=== PATIENT | male | born 1945 | race Caucasian/White ===

== ENCOUNTER → 2025-06-13 14:30 | Outpatient (RCR) | payer MEDICARE, SELFPAY ==
--- NOTE | 2025-05-23 15:55 | HP.PTEVAL ---
Patient's Visit Information Visit Information Visit Information: TANA NICOLE is a 79 year old M referred to Physical Therapy by Dr. Owen Hernandez MD with a diagnosis of Ataxia. Date of Evaluation: 05/23/25 Physical Therapist: MARCELLE Ash Visit Plan Frequency: 1-2x /Week Duration: 6 Weeks Plan: 1-2X/ week for 6 weeks for balance on and off compliant surfaces, gait and balance with head turns, functional ability to step over and order picker/assembler things from the floor with HEP HEP: standing in corner with feet together and EC with and without head turns Subjective Subjective: Pt reports that his legs do not work any more and having weakness and trouble keeping his balance. This has been coming on gradually for at least a year but more severe in the last 2 months. His legs are not giving out on him. He has back pain and has it but not that often. He has some back pain now because he was lifting boxes. He reports that everything is difficult for him like stairs and needs the railing. He has not had any testing. He is not working right now. He is on Social Security. Pain back pain: Pain Intensity (Out of 10): 3 Objective Objective: Gait: walks slowly with decrease stride length LE MMT: R hip flex 11.2 and L 11.5 R knee ext 13.4 and L 17.6 R knee flex 9 and L 10.3 CATSIB 62/120 FGA: 15 Sit to stand X 5 in a row without UE support Balance/Special Test Scores Functional Gait Assessment Score: 15 % Disability: 50.0000 CATSIB Score (Max score 120 seconds): 62 Lower Extremity Functional Score: 14 Goals Goal 1:: I HEP Goal Time Frame: 6-8 Weeks Goal 2:: Feel more secure stepping up on a 3 step ladder with confidence Goal Time Frame: 6-8 Weeks Goal 3:: Increase balance (FGA score was 15 on eval) Goal Time Frame: 6-8 Weeks Goal 4:: Increase CATSIB score (score was 62 on eval) Goal Time Frame: 6-8 Weeks Goal 5:: Feel 50% more confidence with balance Goal Time Frame: 6-8 Weeks Rehabilitation Potential Rehabilitation Potential: Good Anticipated Interventions Patient/Client Instruction: Educate patient on: Condition and Plan of Care For the Purpose of:: To decrease pain, To decrease swelling/inflammation, To increase ROM, To improve nutrient delivery to tissue, To improve muscle performance and motor function, To improve ability to perform ADL's, To increase tolerance to activity/condition/position, To improve performance and independence with ADL's, To decrease level of supervision to perform tasks, To improve ability of physical actions for home/community/work/leisure, To improve gait and locomotor functions, To improve health of tissue and To improve safety with gait Therapeutic Exercise to Include: Strength training, Balance training and Gait and locomotor training For the Purpose of:: To improve gait and locomotor functions, To improve balance and To improve safety with gait Functional Training to Include: Gait training For the Purpose of:: To improve gait and locomotor functions and To improve safety with gait Text: Thank you for the opportunity to evaluate your patient. For Medicare and Medicare HMO plans, please review the plan of care and approve it. It will need to be FAXED BACK to us at [phone] for Medicare purposes. For Medicare only, by signing this I certify the plan of care. Please let me know if there are questions or concerns regarding this plan of care. Physician Signature: Date:
== END ==
LOC: PT 05-23 12:52
PROVIDERS: PCP Family Medicine; Referring Provider Family Medicine; Visit Provider Family Medicine
DX: R27.0 Ataxia, unspecified (principal)
CPT/HCPCS: 97110; 97161

== ENCOUNTER 2025-06-15 12:44 | Inpatient (IN) | payer MEDICARE, SELFPAY ==
[2025-06-15] VITALS (11 sets, daily range): BP systolic 108–167; BP diastolic 58–100; PULSE 89–97; RESP 16–25; TEMP 37.1; O2SAT 91–98; BMI 28.9
--- NOTE | 2025-06-15 13:26 | EKG12_ITS ---
Test Reason : Blood Pressure : */* mmHG Vent. Rate : 93 BPM Atrial Rate : 93 BPM P-R Int : 154 ms QRS Dur : 74 ms QT Int : 356 ms P-R-T Axes : 32 -50 -6 degrees QTcB Int : 442 ms Normal sinus rhythm Left axis deviation Inferior infarct , age undetermined Anterolateral infarct , age undetermined Abnormal ECG Confirmed by SHEILA BOLTON, MURTAZA ([id number]), non linear editor RICHARD KAPADIA ([id number]) on 06/20/2025 6:21:17 AM Referred By: Confirmed By: MURTAZA SOSA MD
--- NOTE | 2025-06-15 13:26 | CT_ITS ---
PROCEDURE: STROKE BRAIN/HEAD WITHOUT CONT 06/15/2025 REASON FOR EXAM: NEURO DEFICIT, ACUTE, STROKE SUSPECTED TECHNIQUE: Procedure Code: CTBR.ST Modality: CT Procedure: STROKE BRAIN/HEAD WITHOUT CONT Coronal and Sagittal reconstruction series were provided. One or more dose reduction techniques were used (e.g., Automated exposure control, adjustment of the mA and/or kV according to patient size, use of iterative reconstruction technique. RADIATION DOSE SUMMARY: CTDlvol: 146 mGy DLP: 3503 mGycm COMPARISON: None FINDINGS: Brain: There is no evidence of hemorrhage or acute ischemia. However, there is vasogenic edema in the left occipital lobe effacing the atrium of the lateral ventricle and also in the precuneus of the parietal lobe secondary to an enhancing mass measuring 2.1 x 1.4 cm that is seen on the CT angiogram that was done at the same time. The mass appears to be associated with the splenium of the corpus callosum, and the adjacent occipital lobe. A 2nd lesion is seen in the temporal lobe abutting the temporal foreign measuring 1.4 x 1.4 cm. The largest lesion is partially necrotic centrally measuring 3.2 x 2.0 cm located in the left superior cerebellar hemisphere. Vasogenic edema is associated with this lesion as well. This creates mass effect effacing the ambient cisterns, [id number]. Partially effacing the prepontine cistern, and there is some mass effect on the 4th ventricle. CSF Spaces: [id number] volume loss is present. There is some mild dilation of the temporal horns in this patient with mass effect on the 4th ventricle. Obstructive CSF physiology versus age-related volume loss. Sinuses/Mastoids: Small mucous retention cyst or polyp right maxillary sinus. Otherwise clear. Bones: No fracture CT angiogram: The aortic branching pattern is conventional. Minimal atherosclerotic plaque of the aortic arch. No stenosis. The common carotid vessels are widely patent bilaterally. Internal carotid arteries and carotid bulbs shows some minimal atherosclerotic plaque at the margins that is less than 15% narrowing bilaterally. The internal carotid arteries: Otherwise patent. Mild atherosclerotic plaque at the cavernous and supraclinoid portions. Anterior cerebral arteries are patent. Middle cerebral arteries are patent. No evidence of large vessel occlusion. Posterior cerebral arteries are patent. Superior cerebellar arteries are patent. Basilar artery is patent. Left vertebral artery is dominant. Both are patent. Venous structures are patent. There is preferred drainage to the right. Emphysema is seen at the lung apices. CT/STROKE Brain/Head without Cont IMPRESSION: 1. No evidence of acute ischemia or hemorrhage. 2. Multiple enhancing masses are shown worrisome for metastatic disease. One in the left posterior corpus callosum at the splenium, another at the right temporal horn, and a third in the left central c erebellum. Associated vasogenic edema is present primarily from the lesion in the cerebellum with effacement of the ambient cist erns, and prepontine cistern. Mass effect on the 4th ventricle. Mild obstructive CSF physiology versus volume loss related to a ge. 3. No large vessel occlusion. Despite very mild, partial effacement of the pr epontine cistern, the basilar artery is widely patent. Stroke Alert: As above The critical findings in the findings and impression above were relayed directl y by me by telephone to [facility] on 06/15/2025 at 3:02 pm EST with readback verification. Reading Location: [id number]
--- NOTE | 2025-06-15 13:27 | CT_ITS ---
PROCEDURE: STROKE CTA HEAD AND NECK W/CON 06/15/2025 REASON FOR EXAM: NEURO DEFICIT, ACUTE, STROKE SUSPECTED Falls. Unsteady gait. Left leg weakness. TECHNIQUE: Procedure Code: CTCTA.ST.HN Modality: CT Procedure: STROKE CTA HEAD AND NECK W/CON Multiplanar Sagittal and Coronal images were obtained. 3D post processing was performed CONTRAST: Isovue 370 VOLUME: 100 mL One or more dose reduction techniques were used (e.g., Automated exposure control, adjustment of the mA and/or kV according to patient size, use of iterative reconstruction technique). RADIATION DOSE SUMMARY: CTDlvol: 25.5 mGy DLP: 887.61 mGycm COMPARISON: None FINDINGS: Enhancing nodular masses are seen in the left cerebellar hemisphere with surrounding edema. Enhancing mass is also seen in the medial aspect of the right temporal lobe as well as in the medial aspect of the left occipital lobe with surrounding edema and mass effect. Findings are in keeping with a metastatic disease. Small enhancing nodule in the right thalamus. Aortic Arch: Normal size and branching pattern. Mild atherosclerotic plaque. Brachiocephalic and Subclavians: Unremarkable RIGHT Carotid: Right CCA: Unremarkable. Right ICA: Mild calcified and soft plaque. Maximum stenosis (NASCET): <50 % Right ECA: Unremarkable. LEFT Carotid: Left CCA: Unremarkable. Left ICA: Mild calcified and soft plaque. Maximum stenosis (NASCET): <50 % Left ECA: Unremarkable. Vertebrals: Codominant. Arise from the subclavians. Both vertebrals form the basilar. RIGHT Vertebral: Unremarkable. LEFT Vertebral: Unremarkable. Anatomy: [place] anatomy is normal. Aneurysm or avm: No intracranial aneurysms or large vascular malformations are identified. Anterior cerebral arteries: Unremarkable: Middle cerebral arteries: Unremarkable. Basilar artery: Unremarkable. Posterior cerebral arteries: Unremarkable. Other major branches of the posterior circulation: Unremarkable. Major venous structures: Unremarkable. CT/STROKE CTA Head AND Neck W/Con IMPRESSION: No significant vascular abnormality is seen. 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 Red Alert: Brain mets The critical findings in the findings and impression above were relayed directl y by me by telephone to Mario Musa on 06/15/2025 at 2:54 pm with readback verification. Reading Location: [facility]
--- NOTE | 2025-06-15 13:30 | EDS_ITS ---
HPI History of Present Illness Chief Complaint: Weakness Detail of Chief Complaint: Weakness and ataxia since March. Gradual onset. Informant: patient Onset/Context/Timing Onset: Month(s) Context: Gradual Onset Timing: Continuous Current Severity: Mild Maximum Severity: Mild Narrative Narrative: 79-year-old male history of prior double bypass. States for the last several months in March he has had generalized weakness and at times will get off balance and has trouble walking. Denies any fall or head injury. No headaches. No history of stroke or mini stroke. He lives alone. States he also has had diarrhea last 2 weeks. Denies any recent antibiotics. Denies any recent hos pitalization or travel. Prior similar symptoms: Yes Recent Illness/Hospitalization: No PFSH PFSH Medical History Cellulitis of left lower leg Home Medications ?Medication ?Instructions ?Recorded ?Last Taken ?Type rosuvastatin 40 mg tablet 40 mg PO QDAY 04/05/25 Unkno wn History Allergy/AdvReac Type Severity Reaction Status Date / Time No Known Allergies Allergy Verified 06/15/25 12:45 Surgical History Hx of CABG Social History Smoking Status: Current every day smoker tobacco type: cigarettes alcohol intake: never ROS ROS ED ROS Narrative Generalized weakness. Ataxia. Diarrhea. Constitutional Constitutional ED: Denies chills or fever(s) Eyes Eyes: Denies blurry vision ENT ENT ED: Denies ear pain Cardiovascular Cardiovascular: Denies chest pain Respiratory/Chest Respiratory/Chest: Denies cough or dyspnea Gastrointestinal Gastrointestinal: Reports diarrhea; Denies abdominal pain, melena, nausea or vomiting Genitourinary Genitourinary ED: Denies dysuria or hematuria Musculoskeletal Musculoskeletal: Denies arthralgias Integumentary Denies abscess Neurologic Neurologic: Reports weakness; Denies headache(s) Psychiatric Psychiatric: Denies anxiety or depression Endocrine Endocrinology: Denies cold intolerance Hematologic/Lymphatic Hematologic/Lymphatic: Reports none Allergic/Immunologic Allergic/Immunologic ED: Denies mouth swelling, tongue swelling or urticaria EXAM Physical Exam Narrative Exam Narrative: 79-year-old male sitting upright in bed. Vital signs are stable afebrile. No acute distress. H EENT exam pupils round react light. Moist mucous membranes. No facial droop. Normal speech. No signs of head trauma or tenderness. Neck nontender. Back nontender. Lungs clear to auscultation bilaterally. Heart regular rhythm no murmur. Chest wall ribs nontender. Abdomen soft, nontender, nondistended normal bowel sounds without peritoneal signs. Moving all 4 extremities. 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 Normal dorsi plantarflexion. No drift. Dqzawr-zy-fmdb within normal limits. Neurologically is awake alert. Answering questions following commands. He knows the month, year and president and states. No focal motor deficits. Const Vital Signs: 06/15/25 12:45 06/15/25 13:30 06/15/25 13:45 Temperature 98.7 F Temperature Source Oral Pulse Rate 96 97 94 Respiratory Rate 20 H 25 H 21 H Blood Pressure 163/94 H 145/94 H 141/92 H Blood Pressure Mean 117 107 107 Pulse Ox 96 95 95 06/15/25 14:00 06/15/25 15:00 Temperature Temperature Source Pulse Rate 89 94 Respiratory Rate 16 25 H Blood Pressure 153/97 H 146/80 H Blood Pressure Mean 115 102 Pulse Ox 97 91 MDM MDM MDM Narrative Medical decision making narrative: 79-year-old male with generalized weakness with ataxia over the last several months has been development. CAT scan of his head and head and neck will be obtained with contrast. Screening labs. This could be recent stroke versus generalized weakness versus electrolyte abnormality due to his diarrhea. Repeat exam 3:40 PM unchanged patient resting in bed nurses were able to get up and ambulate him he is a little off balance. But he could walk. Went over his test results my concern for a lung cancer metastasis to his brain. I have already spoken to [facility]. There is seen if they have a bed for him and transfer. Patient is comfortable with the plan. He does not want to be discharged home if he cannot be transferred to I stated prefer to be admitted due to his fear of falling. Patient also be given IV Solu-Medrol. History & Record Review Discussion w/independent historian: Patient Additional record(s) reviewed:: No prior records Lab Data Attestation: I reviewed the patient's lab results. Lab results narrative: CBC shows a white count Arik 0.9. H&H 13.6 and 41. Platelets 355. PT/INR of 12.9 and 1. PTT 27 Electrolytes show a gap of 11. Normal BUN of 16 creatinine 0.9. Glucose of 100. CAT scan of the chest shows a right lung mass concern for lung cancer. CAT scan of the brain shows multiple masses in his brain 1 appears to be occluding the fourth ventricle. There is also mass effect. Labs: Laboratory Results - last 24 hr 06/15/25 12:55 WBC 11.9 H RBC 4.58 L Hgb 13.6 Hct 41.7 MCV 91.0 MCH 29.7 MCHC 32.6 RDW Std Deviation 45.2 H RDW Coeff of [place] 13.4 Plt Count 355 MPV 8.9 Immature Gran % (Auto) 0.500 Neut % (Auto) 71.0 H Lymph % (Auto) 12.2 L [place] % (Auto) 15.2 H Eos % (Auto) 0.8 Baso % (Auto) 0.3 Absolute Neuts (auto) 8.4 H Absolute Lymphs (auto) 1.45 Nucleated RBC % 0 Differential Comment SCANNED Platelet Estimate ADEQUATE PT 12.9 INR 1.0 APTT 27.8 Sodium 137 Potassium 4.7 Chloride 101 Carbon Dioxide 24.5 Anion Gap 11 BUN 16 Creatinine 0.95 Estim Creat Clear Calc 57.78 Est GFR (MDRD) Non-Af 82 BUN/Creatinine Ratio 16.9 Glucose 100 H Calcium 9.5 Radiography Diagnostic Testing: Clinical Impression(s) from Imaging Studies Brain CT 06/15/25 13:26 IMPRESSION: 1. No evidence of acute ischemia or hemorrhage. 2. Multiple enhancing masses are shown worrisome for metastatic disease. One in the left posterior corpus callosum at the splenium, another at the right temporal horn, and a third in the left central cerebellum. Associated vasogenic edema is present primarily from the lesion in the cerebellum with effacement of the ambient cisterns, and prepontine cistern. Mass effect on the 4th ventricle. Mild obstructive CSF physiology versus volume loss related to age. 3. No large vessel occlusion. Despite very mild, partial effacement of the prepontine cistern, the basilar artery is widely patent. Stroke Alert: As above The critical findings in the findings and impression above were relayed directly by me by telephone to [facility] on 06/15/2025 at 3:02 pm EST with readback verification. Reading Location: [id number] Head/Neck CTA 06/15/25 13:27 IMPRESSION: No significant vascular abnormality is seen. 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 Red Alert: Brain mets The critical findings in the findings and impression above were relayed directly by me by telephone to Mario Musa on 06/15/2025 at 2:54 pm with readback verification. Reading Location: [facility] 06/15/25 13:53 IMPRESSION: Coronary artery calcification (CAC) is is present 3.4 cm 2.7 cm irregular lobulated mass in the posterior aspect of the right upper lobe abutting the right minor fissure. A neoplastic process should be ruled out. Increased markings at the lung bases suggestive of either linear atelectasis and/or scarring. Reading Location: [facility] Discharge Plan Triage Chief Complaint: Weakness ED Provider: Mario Musa Dx/Rx/DC Orders Clinical Impression: Ataxia, Lung cancer metastatic to brain Prescriptions: No Action rosuvastatin 40 mg tablet 40 mg PO QDAY Primary Care Provider: Owen Hernandez Referrals: Owen Hernandez MD [Primary Care Provider, Family Practice] Print Language: Lithuanian Disposition Disposition: Acute Care Hospital
[2025-06-15 13:41] LABS: Hematocrit 41.7 % (40-54); Hemoglobin 13.6 g/dL (13.0-16.5); Immature Granulocytes Count 0.060 X10^3/uL (0.0-0.0); Mean Corp Hgb Conc 32.6 g/dL (32-36); Mean Corpuscular Volume 91.0 fL (80-94); Mean Platelet Vol. 8.9 fl (6.2-12.0); NRBC Flagged by Analyzer 0 % (0-5); POSITIVE DIFFERENTIAL YES; Platelet Count 355 K/mm3 (150-450); RBC Distribution Width CV 13.4 % (11.6-14.6); RBC Distribution Width SD 45.2 fl (35.1-43.9); Red Blood Count 4.58 M/mm3 (4.6-6.2); White Blood Count 11.9 K/mm3 (4.4-11.0)
[2025-06-15 13:44] LABS: Differential Indicated SCAN CRITERIA MET
--- NOTE | 2025-06-15 13:53 | CT_ITS ---
PROCEDURE: CHEST WITH CONTRAST 06/15/2025 REASON FOR EXAM: POSSIBLE LUNG CA TECHNIQUE: Procedure Code: CTCHW Modality: CT Procedure: CHEST WITH CONTRAST Coronal and Sagittal reconstruction series were provided. CONTRAST: Isovue 370 VOLUME: 100 mL One or more dose reduction techniques were used (e.g., Automated exposure control, adjustment of the mA and/or kV according to patient size, use of iterative reconstruction technique). RADIATION DOSE SUMMARY: CTDlvol: 26.62 mGy DLP: 967.44 mGycm COMPARISON: None FINDINGS: Hardware: EKG electrodes are seen. Lymph nodes: No suspicious lymph nodes are seen. Heart and Vasculature: Prior CABG. Atherosclerotic calcifications of the thoracic aorta. Pulmonary arteries are unremarkable. Coronary artery calcification. Lungs and Airways: There is a 3.4 cm x 2.7 cm irregular lobulated mass in the posterior aspect of the right upper lobe abutting the right minor fissure. A neoplastic process should be ruled out. Increased markings at the lung bases suggestive of either atelectasis and/or scarring. Pleura: No pleural effusion. Upper Abdomen: Sludge or small gallstones within the dependent portion of the gallbladder lumen. Bones: Degenerative changes of the thoracic spine. Increased kyphosis. CT/Chest WITH Contrast IMPRESSION: Coronary artery calcification (CAC) is is present 3.4 cm 2.7 cm irregular lobulated mass in the posterior aspect of the right upp er lobe abutting the right minor fissure. A neoplastic process should be ruled out. Increased markings at the lung bases suggestive of either linear atelectasis an d/or scarring. Reading Location: [place] [id number]
[2025-06-15 13:57] LABS: Prothrombin Time (Protime)PT. 12.9 SECONDS (11.7-14.9)
[2025-06-15 13:58] LABS: Partial Thromboplast Time 27.8 Seconds (24.1-36.2)
[2025-06-15 14:28] LABS: Anion Gap 11 (5-15); BUN 16 mg/dL (4-19); BUN/Creat Ratio 16.9 RATIO (10-20); Calcium,Total 9.5 mg/dL (7.6-11.0); Carbon Dioxide 24.5 mmol/L (21.0-32.0); Chloride 101 mmol/L (98-108); Estimated Creatinine Clearance 57.78 ml/min (50-250); Glucose 100 mg/dL (70-99); Potassium 4.7 mmol/L (3.3-5.1)
[2025-06-15 14:46] LABS: Differential Comment SCANNED
--- NOTE | 2025-06-15 23:06 | PCA ---
CALLED [facility] AND ASKED ABOUT BED STATUS. RN STATED MOST LIKELY / MORNING.
--- NOTE | 2025-06-15 23:51 | HP.PCM.HOS_ITS ---
HPI - General General Date of Admission: 06/15/25 Date of Service: 06/15/25 Chief Complaint: Weakness, debility, off balance, weight loss. HPI Narrative The patient is a 79 y/o M w/ PMHx: HTN, HLD, CAD s/p CABG x 2, Tobacco use who presents to the [facility] ED on 06/15/2025 with history of persistent history of the last several months in March worsening generalized weakness, possibly weight loss although uncertain per patient report but potentially decreased appetite with sensation of being off balance and difficulty walking in addition to recent history of intermittent loose stools prompting patient to present for evaluation. He denies any night sweats or fevers or any marked productive cough. He again reports potentially weight loss but he is uncertain. He does note generalized fatigue and declining status over the last several months. Workup in the ED included T98.7, heart rate 98, BP 163/94, respiratory rate 20, 96% on room air with most recent repeat vitals heart rate 91, BP 108/58, respiratory rate 24, 98% on room air, CBC with WC 11.9, hemoglobin 13.6, platelet 355 with left shift, unremarkable coags, BMP with BUN/creatinine 16/0.95, GFR 82, glucose 100, magnesium 2.3, Phos 2.8, CT brain/CTA head and neck with no acute ischemia or hemorrhage however multiple enhancing masses concerning for metastatic disease, noted 1 in the left posterior corpus callosum at the splenium, another at the right temporal horn, third at the left central cerebellum with associated vasogenic edema primarily from the lesion in the cerebellum with effacement of the ambient cisterns and prepontine cistern, mass effect on the fourth ventricle with mild obstructive CFS physiology versus volume loss related to age, no evidence of any large vessel occlusion, CT chest with contrast with 3.4 cm x 2.7 cm irregular lobulated mass in the posterior aspect of the right upper lobe abutting the right minor fissure with increased markings at the lung bases suggestive of atelectasis and/or scarring. ED physician discussed case at length with [facility] and patient was accepted by Dr. Blanton as a level 1 with plan for transition once became available however unfortunately there was a several hour delay prompting discussion of case with hospitalist service and given rediscussion with [facility] noted likely bed not available until later in the day 06/16/2025 requested that ED physician administer Decadron dose as well as loaded with Keppra. Patient was evaluated in the Emergency Department at [facility] on 06/15/2025 as noted and at the time of evaluation, transfer to a tertiary hospital was felt to be in the patient's best interest due to significant metastatic disease with metastatic disease to the brain including cerebellum/multiple areas with vasogenic edema and mass effect on the fourth ventricle with attempts were made by the Emergency Department and/or the Hospitalist team to get patient to the appropriate level of care and although the patient has been accepted for transfer to [facility], there are no staffed beds currently available. Given the need for ongoing medical care, in the interim in the best interest of the patient, will proceed with admission to [facility] and care will be provided here until [facility] has an available staffed bed. Pt and/or family are aware of the transfer, the reasoning behind the need for transfer, and that until a staffed bed becomes available, we will provide evidence-based care to the best of our abilities, with the limitations of care here being fully addressed. [facility] [place] [place] Medical History CKD (chronic kidney disease), stage II Tobacco use HLD (hyperlipidemia) HTN (hypertension) CAD (coronary artery disease) Home Medications ?Medication ?Instructions ?Recorded ?Last Taken ?Type rosuvastatin 40 mg tablet 40 mg PO QDAY 04/05/25 Unkno wn History Allergy/AdvReac Type Severity Reaction Status Date / Time No Known Allergies Allergy Verified 06/15/25 12:45 Family History Mother Alzheimer's disease Father Kidney disease Surgical History Hx of CABG Social History household members: none Smoking Status: Current every day smoker tobacco type: cigarettes Smoking packs per day: 0.75 Smoking cigarettes per day: 15.0 alcohol intake: never substance use type: does not use ROS ROS Narrative Admission Review of Systems: CONSTITUTIONAL: No weight loss, fever, chills, + weakness or fatigue. HEENT: Eyes: No visual loss, blurred vision, double vision or yellow sclerae. Ears, Nose, Throat: No hearing loss, sneezing, congestion, runny nose or sore throat. SKIN: No rash or itching, lesions, wounds. CARDIOVASCULAR: No chest pain, chest pressure or chest discomfort, palpitations, edema, orthopnea, syncopal events. RESPIRATORY: No shortness of breath, cough or sputum, wheezing, hemoptysis. GASTROINTESTINAL: + Potential weight loss, decreased appetite, recent occasional loose stool. No nausea, vomiting, abdominal pain, melena, BRBPR. GENITOURINARY: No dysuria, frequency, urgency or retention. NEUROLOGICAL: + Sensation of being off balance, general debility. No headache, dizziness, syncope, paralysis, numbness or tingling in the extremities, focal weakness, change in bowel or bladder control, seizure. MUSCULOSKELETAL: + muscle, back pain, joint pain or stiffness. HEMATOLOGIC: No anemia. + Easy bleeding/bruising. LYMPHATICS: No enlarged nodes. No history of splenectomy. PSYCHIATRIC: No history of depression or anxiety. ENDOCRINOLOGIC: No reports of sweating, cold or heat intolerance. No polyuria or polydipsia. ALLERGIES: No history of asthma, hives, eczema or rhinitis. Vital Signs Vital Signs Vital Signs: 06/15/25 12:45 06/15/25 13:30 06/15/25 13:45 Temperature 98.7 F Temperature Source Oral Pulse Rate 96 97 94 Respiratory Rate 20 H 25 H 21 H Blood Pressure 163/94 H 145/94 H 141/92 H Blood Pressure Mean 117 107 107 Pulse Ox 96 95 95 06/15/25 14:00 06/15/25 15:00 06/15/25 16:11 Temperature Temperature Source Pulse Rate 89 94 95 Respiratory Rate 16 25 H 25 H Blood Pressure 153/97 H 146/80 H 167/99 H Blood Pressure Mean 115 102 121 Pulse Ox 97 91 95 06/15/25 17:25 06/15/25 18:15 06/15/25 19:28 Temperature Temperature Source Pulse Rate 94 92 Respiratory Rate 23 H 18 Blood Pressure 151/100 H 155/84 H 141/76 H Blood Pressure Mean 117 107 97 Pulse Ox 93 94 06/15/25 20:40 06/15/25 22:00 Temperature Temperature Source Pulse Rate 91 Respiratory Rate 24 H Blood Pressure 108/58 L 117/64 Blood Pressure Mean 74 81 Pulse Ox 98 Weight Weight: 163 lb 2.273 oz Body Mass Index (BMI) 28.9 Physical Exam Narrative Physical Examination: General: Awake, alert, oriented to self, place, month, year, recent events, remains ooperative, laying in the ED bed, fatigued, no acute distress. Skin: Normal color, normal turgor, no icterus, no cyanosis except occasional stage ecchymoses, abrasion. HEENT: AT/NC, EOMI, PERRLA, mildly dry MM, no carotid bruits or JVD noted. Lungs: Diminished, greater bases, appropriate effort, no rales, ronchi or wheezing. Heart: Regular rate and rhythm; no gallop, rub audible. Abdomen: Soft, NTTP, ND, mildly hyperactive BS, no appreciated HSM. Extremities: No cyanosis, no clubbing, no significant distal edema noted. Neurological: Patient awake, alert, oriented as noted, cognitive function intact; pupils equally reactive to light and accommodation, cranial nerves grossly normal, moving all 4 extremities, no focal deficits, strength preserved with evaluation while seated/laying however patient reportedly in ED had been ataxic with ambulatory effort, FTN/HTS appropriate although slow. Psychiatric: Affect appears fatigued otherwise appropriate, no acute evidence of depressive or anxiety feelings. Results Lab / Micro Data 06/15/25 12:55 06/15/25 12:55 Labs: Laboratory Results - last 24 hr 06/15/25 12:55: WBC 11.9 H, RBC 4.58 L, Hgb 13.6, Hct 41.7, MCV 91.0, MCH 29.7, MCHC 32.6, RDW Std Deviation 45.2 H, RDW Coeff of Brooklynn 13.4, Plt Count 355, MPV 8.9, Immature Gran % (Auto) 0.500, Neut % (Auto) 71.0 H, Lymph % (Auto) 12.2 L, Hayes % (Auto) 15.2 H, Eos % (Auto) 0.8, Baso % (Auto) 0.3, Absolute Neuts (auto) 8.4 H, Absolute Lymphs (auto) 1.45, Nucleated RBC % 0, Differential Comment SCANNED, Platelet Estimate ADEQUATE, PT 12.9, INR 1.0, APTT 27.8, Sodium 137, Potassium 4.7, Chloride 101, Carbon Dioxide 24.5, Anion Gap 11, BUN 16, Creatinine 0.95, Estim Creat Clear Calc 57.78, Est GFR (MDRD) Non-Af 82, BUN/Creatinine Ratio 16.9, Glucose 100 H, Calcium 9.5 Imaging Radiology Impression Brain CT 06/15/25 13:26 IMPRESSION: 1. No evidence of acute ischemia or hemorrhage. 2. Multiple enhancing masses are shown worrisome for metastatic disease. One in the left posterior corpus callosum at the splenium, another at the right temporal horn, and a third in the left central cerebellum. Associated vasogenic edema is present primarily from the lesion in the cerebellum with effacement of the ambient cisterns, and prepontine cistern. Mass effect on the 4th ventricle. Mild obstructive CSF physiology versus volume loss related to age. 3. No large vessel occlusion. Despite very mild, partial effacement of the prepontine cistern, the basilar artery is widely patent. Stroke Alert: As above The critical findings in the findings and impression above were relayed directly by me by telephone to Elton on 06/15/2025 at 3:02 pm EST with readback verification. Reading Location: [facility] Head/Neck CTA 06/15/25 13:27 IMPRESSION: No significant vascular abnormality is seen. 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 Red Alert: Brain mets The critical findings in the findings and impression above were relayed directly by me by telephone to Mario Musa on 06/15/2025 at 2:54 pm with readback verification. Reading Location: [facility] 06/15/25 13:53 IMPRESSION: Coronary artery calcification (CAC) is is present 3.4 cm 2.7 cm irregular lobulated mass in the posterior aspect of the right upper lobe abutting the right minor fissure. A neoplastic process should be ruled out. Increased markings at the lung bases suggestive of either linear atelectasis and/or scarring. 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 #1. Debility, imbalance secondary to notable lung mass with suspected metastatic disease to the brain including the cerebellum with vasogenic edema and mass effect on the fourth ventricle with potential mild obstructive CFS physiology: Although patient has been accepted as a level 1 to the [facility] unfortunately there is a significant delay therefore we will bring patient into the ICU while awaiting transfer, will maintain on fall precautions, will continue Keppra antiepileptic medication and requested load in the ED, will continue Decadron 4 mg IV every 6 hours, will request neurology evaluation while awaiting transfer, will request MRI of the brain with and without contrast but defer to neurology recommendations, will defer any antiplatelet therapy however the patient has been noncompliant with aspirin therapy already so he has not been taking anything, will monitor blood pressure and add regimen if appropriate, PT/OT/speech consultation requested, will continue neurological assessments every shift, will involve magazine publisher while awaiting for transfer, will defer consideration of biopsy of the lung mass to tertiary facility. #2. Chronic Kidney Disease Stage II per GFR trending but no comparison thus uncertain: Admission BUN/Cr 16/0.95, GFR 82, baseline renal function unknown but suspect likely this is baseline, repeat BMP in AM. #3. CAD: Status post CABG x 2, not taking any any antiplatelet therapy even including aspirin, not on a beta-srikanth NIKOLAS inhibitor/ARB, reportedly taking statin therapy which we continued. Given current presentation will defer aspirin therapy, continue statin, given normalized blood pressure currently will avoid beta-srikanth/NIKOLAS inhibitor however if appropriate will add. #4. Hypertension: Despite history as well as coronary history patient is not on any regimen per current list, from discussion with patient has been lost to follow-up coupled with noncompliance, currently BP upon evaluation normalized thus loath to start something at this time, will have as needed hydralazine however if blood pressure elevates and is appropriate low threshold to initiate beta-srikanth therapy as well as NIKOLAS inhibitor given coronary disease concurrently. #5. Hyperlipidemia: Will continue patient home statin therapy. #6. Tobacco Abuse: Encouraged cessation, inpatient consultation per RT, NR if desired. #7. DVT prophylaxis: SCDs, defer any chemoprophylaxis concept given findings on CT imaging of the brain. #8. CODE status: Patient HCPOA is his brother, from discussion unclear if living will is in place. CODE status at length including difference between FULL code, DNR-CCA and DNR-CC status. Following discussions about the differences in these status, requested DNR-CCA, no intubation examples discussed and patient confirmation of DNR status. Advanced Care Planning Face to Face Time: 16 minutes. Charges/Coding Visit Charges Inpatient E&M: 55606 Init Hosp L3 Procedures Hospitalists Procedures: 54392 Advncd Care Plan 30 Min
[2025-06-16] VITALS (18 sets, daily range): BP systolic 88–136; BP diastolic 61–83; PULSE 71–96; RESP 10–24; TEMP 36.5–37.1; O2SAT 91–97; BMI 25.2
[2025-06-16 00:37] LABS: Magnesium 2.3 mg/dL (1.5-2.2)
[2025-06-16] MEDS: levETIRAcetam IV 1,000 MG/100 ML BAG 400 MG IV (00:42)
--- NOTE | 2025-06-16 00:47 | ED.RN ---
Patient states he will update Fernandez in the morning and does not want RN to update him
--- OUTSIDE RECORDS SUMMARY | 2025-06-16 01:21 | XMS RPT_ITS | CCD ---
Author Organization [facility] Care Team Providers Care 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 Name Role Phone Vanesa Carranza MD Primary Care Provider Tere BOLTON, Dr. Weaver Primary Care Physician Tere BOLTON, Dr. Weaver Referring Provider Moe Simon Attending Physician [phone] Moe Simon Attending Unavailable Vanesa Carranza Referring Unavailable Vanesa Carranza Primary Care Unavailable Vanesa Carranza MD Primary Care Provider VANESA CARRANZA Primary Care Unavailable VANESA CARRANZA Attending Unavailable VANESA CARRANZA Primary Care Unavailable VANESA CARRANZA Primary Care Unavailable VANESA CARRANZA Primary Care Unavailable VANESA CARRANZA Attending Unavailable VANESA CARRANZA Primary Care Unavailable Medications Current Medications Medication Drug Class(es) Dates Sig (Normalized) Sig (Original) cephalexin 500 mg oral capsule (1 source) Cephalosporin Antibacterial Start: 04-05-2025 take 1 capsule by mouth three times daily Cephalexin 500 mg capsule Active 500 mg PO THREE TIMES A DAY 30 0 April 05, 2025 12:00am Complies with drug therapy losartan potassium 50 mg oral tablet (2 sources) Angiotensin 2 Receptor Hector Start: 05-12-2025 take 1 tablet by mouth once daily losartan (Cozaar) 50 MG tablet Take 1 tablet (50 mg) by mouth daily. 30 tablet 05/12/2025 Active [place] 1-Rzp-Kvd-Fish Oil (Fish Oil) 60-90-500 mg capsule (1 source) Start: 04-05-2025 [place] 1-Gnm-Tie-Fish Oil (Fish Oil) 60-90-500 mg capsule Active 1 NMA PO daily April 05, 2025 12:00am Complies with drug therapy [place]-3 Fatty Acids (OMEGA-3 FISH OIL PO) (17 sources) [place]-3 Fatty Acids (OMEGA-3 FISH OIL PO) Take by mouth. Active [place]-3 Fatty Ac ids (OMEGA-3 FISH OIL PO) Take by mouth. 0 Active rosuvastatin calcium 40 mg oral tablet (20 sources) HMG-CoA Reductase Inhibitor Start: 10-31-2024 End: 05-03-2025 take 1 tablet by mouth once daily rosuvastatin (Crestor) 40 MG tablet Take 1 tablet (40 mg) by mouth daily. 90 tablet 1 05/03/2025 Active Start: 09-16-2023 End: 04-19-2024 take 1 tablet by mouth once daily rosuvastatin (Crestor) 40 MG tablet Take 1 tablet by mouth daily. 90 tablet 1 04/19/2024 Active Start: 01-28-2023 take 1 tablet by bria th once daily rosuvastatin (Crestor) 40 MG tablet Take 1 tablet (40 mg) by mouth daily. 30 tablet 0 01/28/2023 Active ubidecarenone 30 mg oral cap gus (18 sources) Start: 04-05-2025 Coenzyme Q10 3 0 mg capsule Active 30 mg PO daily April 05, 2025 12:00am Complies with drug therapy take 1 capsule by mouth once laverne ly coenzyme Q-10 50 MG capsule Take 50 mg by mouth daily. Active Completed/Discontinued Medications Medication Drug Class(es) Dates Sig (Normalized) Sig (Original) bromfenac 0.7 mg/ml ophthalmic solution (2 sources) Nonsteroidal Anti-inflammatory Drug Start: 08-13-2024 End: 10-27-2024 take 1 drop(s) into the eye(s) once daily Bromfenac Sodium 0.07 % solution instill 1 drop into right eye once a day 08/13/2024 10/27/2024 Discontinued (Therapy completed) ofloxacin 3 mg/ml ophthalmic solution (5 sources) Quinolone Antimicrobial Start: 02-11-2024 End: 10-27-2024 take 1 drop(s) into the eye(s) four times daily ofloxacin (Ocuflox) 0.3 % ophthalmic solution Instill 1 drop Right Eye 4 times a day as directed 02/11/2024 10/27/2024 Discontinued (Therapy completed) prednisoLONE acetate 10 mg/ml ophthalmic suspension (5 sources) Corticosteroid Start: 03-28-2024 End: 10-27-2024 take 1 drop(s) into the eye(s) four times daily prednisoLONE acetate (Pred-Forte) 1 % ophthalmic suspension puy 1 drop into left eye 4 times a day as directed 03/28/2024 10/27/2024 Discontinued (Therapy completed) Problems Active Problems Problem Classification Problem Date Documented Da te Episodic/Chronic Coronary atherosclerosis and other heart disease (20 sources) Coronary arteriosclerosis; Translations: [Atherosclerotic heart disease of [place] coronary artery without angina pectoris] Onset: 10-24-2022 Chronic Disorders of lipid metabolism (20 sources) Mixed hyperlipidemia; Translations: [Mixed hyperlipidemia] Onset: 01-28-2023 01-28-2023 Chronic Other and ill-defined heart disease (1 source) Heart disease; Translations: [Heart disease, unspecified] 04-05-2025 Chronic Other circulatory disease (20 sources) Elevated blood-pressure reading without diagnosis of hypertension; Translations: [Elevated blood-pressure reading, without diagnosis of hypertension] Onset: 10-24-2022 Resolved: 10-27-2023 Episodic Other circulatory disease (2 sources) Elevated blood-pressure reading, without diagnosis of hypertension; Translations: [Elevated blood-pressure reading, without diagnosis of hypertension] Onset: 10-27-2024 Episodic Other nervous system disorders (10 sources) Ataxia; Translations: [Ataxia, unspecified] Onset: 05-03-2025 05-03-2025 Episodic Other nervous system disorders (2 sources) Ataxia, unspecified; Translations: [Ataxia, unspecified] Onset: 05-03-2025 Episodic Residual codes; unclassified (2 sources) Influenza vaccination declined; Translations: [Immunization not carried out because of patient refusal] 05-04-2024 Episodic Residual codes; unclassified (2 sources) Immunization not carried out because of patient refusal; Translations: [Immunization not carried out because of patient refusal] Onset: 05-03-2025 Episodic Skin and subcutaneous tissue infections (2 sources) Cellulitis of lower leg; Translations: [Cellulitis of left lower limb] 04-05-2025 Episodic Substance-related disorders (20 sources) Cigarette smoker ; Translations: [Nicotine dependence, cigarettes, uncomplicated] Onset: 05-06-2024 05-06-2024 Chronic Unclassified (2 sources) Blood Pressure Check; Translations: [Blood Pressure Check] Onset: 11-04-2024 Past or Other Problems Problem Classification Problem Date Documented Da te Episodic/Chronic Other screening for suspected conditions (not mental disorders or infectious disease) (6 sources) Patient encounter status; Translations: [Encounter for screening for diabetes mellitus] Onset: 10-27-2024 Episodic Results Test Name Value Interpretation Reference Range Facil ity 29on 05-12-2025 29 Addended by: VANESA CARRANZA on: 05/12/2025 12:19 PM Modules accepted: Orders [facility] 29 Addended by: BERT OVERTON on: 05/12/2025 12:07 PM Modules accepted: Orders [facility] 36on 05-12-2025 36 Rx sent [facility] 36 Called and spoke wit h patient agreeable to start rx. Pended RX. Scheduled in 2 weeks for a bp check. pharmacy verified. [facility] 36on 05-11-2025 36 I am sorry that was supposed to be losartan 50 mg for blood pressure rosuvastatin is for his cholesterol. [facility] 36 Message released to patient as written. Yes Patient's further questions if applicable: no Were all questions from office addressed or relayed to the patient from encounter: No Release regarding BP clinical support Patient stated that he is already on rosuvastatin 40mg for cholesterol. [facility] Progress Noteon 05-10-2025 Progress Note Corrected see TE fro m 05/12/25. [facility] Progress Note The patient, Tana Flores, identity was verified by name and . Supervising provider for clinic visit: Dr. Vanesa Carranza Chief Complaint Patient presents with Blood Pressure Check Reason for visit: Elevated BP Reading at last visit Tana Flores has validated current medications Patient states compliant with medications as written: No BP medication taken prior to this visit? Patient not currently prescribed b/p medication Are you having any symptoms? No Current Blood Pressure:157/82 Current Heart Rate:94 Did Blood Pressure need rechecked: yes Second Blood Pressure Readin/91 Second Heart Rate: 94 Assessment/Plan: There are no diagnoses linked to this encounter. elevated Future Appointments Date Time Provider Department Center 11/04/2025 10:40 AM LEONARD Castillo CNP [facility] 05/05/2026 10:40 AM Brittnee Helm, [employer] - JAIL OFFICER [facility] Cc'd provider blood pressure readings? Yes Normal [facility] Progress Note Called patient and left vm to call our office back regarding b/p check. Normal [facility] Progress Note Blood pressure continues to be elevated would recommend starting rosuvastatin 50 mg daily and recheck in 1 week. Normal [facility] Office Visiton 05-03-2025 Follow-up visit [id number] MarkTana Sandoval 1945 M Date Provider Department Center 05/03/2025 [id number] VANESAMARITZA ENGLANDAgnes [facility] Family History Family Status - Relation Status Age at Mother Father Level of Service:53632 [place] OFFICE/OUTPATIENT ESTABLISHED MOD MDM 30 MIN Reason for Visit and Comments: Coronary Artery Disease [187] Hyperlipidemia [182] Medication Check [[id number]] - 6 month Health Maintenance [872] - Lung cancer screen- refuse Rsv vaccine- not done Flu vaccine- refuse Covid vaccine- not done Tdap vaccine- refuse Pcv 20 vaccine- refuse Normal [facility] Progress Noteon 05-03-2025 Progress Note Blood pressure was initially elevated, recheck it was still up but a little better, follow-up in 1 week for blood pressure check, most likely he is going to need to start some blood pressure medication in the future. Normal [facility] Progress Note Discussed smoking cessation, gives no indication he is ready. Normal [facility] Progress Note Controlled, continue rosuvastatin 40 mg daily Normal [facility] Progress Note We will get him into physical therapy for balance and core strengthening Normal [facility] Progress Note Stable, no recent angina, continue rosuvastatin 40 mg daily and stop smoking. Normal [facility] Progress Note 05/03/2025 Tana Sandoval Flores (: 1945) is a 79 y.o. male , Established patient, here for evaluation of the following chief complaint(s): Coronary Artery Disease, Hyperlipidemia, Medication Check (6 month), and Health Maintenance (Lung cancer screen- refuse/Rsv vaccine- not done/Flu vaccine- refuse/Covid vaccine- not done/Tdap vaccine- refuse/Pcv 20 vaccine- refuse) ASSESSMENT/PLAN: 1. Coronary artery disease involving [place] coronary artery of [place] heart without angina pectoris Assessment & Plan: Stable, no recent angina, continue rosuvastatin 40 mg daily and stop smoking. 2. Elevated BP without diagnosis of hypertension Assessment & Plan: Blood pressure was initially elevated, recheck it was still up but a little better, follow-up in 1 week for blood pressure check, most likely he is going to need to start some blood pressure medication in the future. 3. Mixed hyperlipidemia Assessment & Plan: Controlled, continue rosuvastatin 40 mg daily 4. Ataxia Assessment & Plan: We will get him into physical therapy for balance and core strengthening Orders: - External referral to Physical Therapy 5. Cigarette smoker Assessment & Plan: Discussed smoking cessation, gives no indication he is ready. 6. Refused influenza vaccine Follow up in about 6 months (around 11/01/2025). SUBJECTIVE/OBJECTIVE: ANGI Dumont comes in today for 6-month follow-up on his multiple health issues which includes coronary artery disease which is stable at this time. 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 Blood pressure is again elevated slightly will recheck Prior to discharge. Review of Systems Constitutional: Negative for activity change, appetite change, chills, fever and unexpected weight change. HENT: Negative for ear pain and sore throat. Respiratory: Negative for shortness of breath. Cardiovascular: Negative for chest pain and palpitations. Gastrointestinal: Negative for abdominal pain, blood in stool, constipation and diarrhea. Genitourinary: Negative for dysuria, frequency, genital sores, hematuria and urgency. Musculoskeletal: Negative for arthralgias and back pain. Skin: Negative. Neurological: Negative for weakness and numbness. Psychiatric/Behaviora l: Negative for dysphoric mood. The patient is not nervous/anxious. Vitals: 05/03/25 1059 05/03/25 1130 BP: (!) 161/89 (!) 150/90 Pulse: 85 84 SpO2: 94% Weight: 161 lb 6.4 oz (73.2 kg) Height: 5' 3.25 (1.607 m) Physical Exam Vitals and nursing note reviewed. Constitutional: General: He is not in acute distress. Appearance: Normal appearance. HENT: Right Ear: Tympanic membrane, ear canal and external ear normal. Left Ear: Tympanic membrane, ear canal and external ear normal. Mouth/Throat: Mouth: Mucous membranes are moist. Pharynx: Oropharynx is clear. Eyes: Extraocular Movements: Extraocular movements intact. Conjunctiva/sclera: Conjunctivae normal. Pupils: Pupils are equal, round, and reactive to light. Neck: Thyroid: No thyromegaly. Vascular: No carotid bruit. Cardiovascular: Rate and Rhythm: Normal rate and regular rhythm. Heart sounds: Normal heart sounds. No murmur heard. Pulmonary: Effort: Pulmonary effort is normal. Breath sounds: Normal breath sounds. Abdominal: General: Bowel sounds are normal. Palpations: Abdomen is soft. Tenderness: There is no abdominal tenderness. Musculoskeletal: General: Normal range of motion. Cervical back: Neck supple. Lymphadenopathy: Cervical: No cervical adenopathy. Skin: General: Skin is warm and dry. Neurological: General: No focal deficit present. Mental Status: He is alert and oriented to person, place, and time. Psychiatric: Mood and Affect: Mood normal. An electronic signature was used to authenticate this note. Vanesa Carranza MD 05/03/2025 11:54 AM [facility] Progress Note Patient verified by last name and date of . [facility] Urgent Care Visit Reporton 0 04-05-2025 Urgent Care Visit Report [facility] [address], [address] [place] [address] OFFICE VISIT Date of Service: 04/05/25 MR#: [id number] Acct: [id number] Name: TANA FLORES Rep #: [id number] : 1945 Provider: TANYA Swan Age/Sex: 79/M Location: [facility] [place] Status: Signed Intake Vital Signs 04/05/25 11:41 Height 5 ft 3 in Weight: 163 lb 4 oz BMI 28.9 BP 122/82 H Position Sitting Respiration 20 H Pulse 105 H Temp 98.1 F Temp Source Oral Pulse Oximetry (%) 95 Oxygen Delivery Method room air Intake Visit Reasons: L LEG WOUND Accompanied by: Self Allergies No Known Allergies Allergy (Verified 04/05/25 11:41) Medications ???Medication ???Instructions ???Recorded ???Confirmed ???Type cephalexin 500 mg capsule 500 mg PO TID #30 caps 04/05/25 Rx coenzyme Q10 30 mg capsule 30 mg PO QDAY 04/05/25 04/05/25 Hi story omega 0-whh-rac-fish oil 60 mg-90 1 cap PO QDAY 04/05/25 04/05/25 H istory mg-500 mg capsule (Fish Oil) rosuvastatin 40 mg tablet 40 mg PO QDAY 04/05/25 04/05/25 Hi story Have you fallen in the past year?: No Nurse's Note: Patient here for concerns for a infection in his wound on his left leg. Patient wound happen 3 weeks ago. Patient states he though it was getting better then Friday he started bleeding . Patient state that their is a tightness where the wound is and he has redness hasn't gone away. It looks a little swollen too. Patient states no drainage but did have watery blood. [facility] Medical History (Updated 04/05/25 @ 11:56 by TANYA Rowland) Cellulitis of left lower leg Surgical History (Updated 04/05/25 @ 11:48 by Adrianna Ward MA) Hx of CABG Social History Smoking Status: Current every day smoker tobacco type: cigarettes alcohol intake: never HPI HPI Details: TANA FLORES, is a 79 M who presents to the office today for initial evaluation at the [facility] for approximately 3 weeks history of leg trauma to left anterior lower leg with a metal ladder causing an open wound and has noticed stated progressively worsening erythema, swelling, warmth and serosanguineous discharge from the same. No complaints of fever, chills, sweats, lightheadedness/dizzi ness, nausea/vomiting. No otxk-vqn-xglhrdo oral medications or topical products have been tried to assist though he did recently start covering the open wound with Band- Aids over the last 3 to 4 days. Non-smoker. PMH NC. No other associated symptoms and no other alleviating or aggravating factors. ROS Const Constitutional: No other (As above) Exam Const General: cooperative, healthy appearing and no acute distress Orientation: alert and awake Resp Effort Inspection: normal respiratory effort and able to speak in complete sentences Cardio Rate: regular rate Rhythm: regular rhythm Pulses: radial pulses present Skin General: no rashes or lesions noted Other: Except left anterior lower leg approximately 3 cm open L-shaped laceration with scant serosanguineous discharge and circumferential erythema, swelling, warmth of approximately 15 cm diameter to the same wound. After inspection site was recleansed and dressing applied thereafter which patient tolerated well. Neuro General: patient alert and patient awake Cognition: normal cognition Speech: speech normal Extrem General: normal to inspection Psych Appearance: grossly normal Mental Status: mental status grossly normal Mood: congruent mood Affect: normal affect Speech and Movement: speech and movement normal Attitude: cooperative Coding Level of Care Code Off vis,new,level 3 Diagnoses Cellulitis of left lower leg L03.116 Assessment and Plan Assessment and Plan (1) Cellulitis of left lower leg: Status: Acute Plan: Twice daily wound care with Epsom salt soaks, followed by bacitracin ointment and dressing as instructed today. Cephalexin as prescribed today. Supportive measures including rest, elevate, ibuprofen/acetaminoph en as needed for symptomatic relief. Follow-up with PCP in 3 to 5 days should symptoms not improve, sooner should symptoms only worsen or any other concerns develop. Patient states acknowledging understanding all the above. This note was generated with [employer] dictation software. It may contain incorrect words, spelling, and punctuation that were not noted in checking the note before signing. Medications: New cephalexin 500 mg PO TID 30 caps 0RF Clinical Quality Measures Falls Risk Screening/Assistive Devices Have you fallen in the past year?: No 04/05/25 1157 Date Moe Turcios Signature: Date (if applicable) CC: Normal [facility] 36on 11-04-2024 36 Notified, no further questions. Normal [facility] 36 Blood pressure is excellent, also rosuvastatin was sent in 4 days ago to [facility] 36 Patient also came in today for a blood pressure check and his reading was 118/79 pulse 95. Please advise, thank you! Patient arrived for nurse visit today and was verified by name and . Supervising provider for clinic visit Dr. Carranza is currently not taking any anti- hypertensive medications Shortness of breath no Medication compliance yes B/P Reading taken automatic Home Monitoring no Patient advised if follow up is needed, outreach will occur in 48 hours [facility] 36 Patient needs a refill of Crestor---send to [facility] Progress Noteon 11-04-2024 Progress Note [address] [facility] [id number] Patient arrived for nurse visit today and was verified by name and . Supervising provider for clinic visit Dr. Carranza is currently not taking any anti- hypertensive medications Shortness of breath no Medication compliance yes B/P Reading taken automatic Home Monitoring no Patient advised if follow up is needed, outreach will occur in 48 hours [place] [id number] 10-31-2024 36 Thank you, a gold star is waiting. Rx sent for another 6 months [place] [id number] 36 Message released to patient as written. ----- Message from Vanesa Carranza MD sent at 10/28/2024 5:20 AM EDT ----- Blood sugar and chemistry are normal. Cholesterol is excellent, continue current medications and low-fat low-cholesterol Patient's further questions if applicable: Patient states Dr. Carranza should send him a Gold Star. No follow questions. Thank you. Were all questions from office addressed or relayed to the patient from encounter: Yes [place] [id number] 36 Called patient to release their lab results. No answer, Left voicemail advising patient to return call back to office to obtain results. Please relay results/providers message to patient and ask any follow up questions if needed. [facility] 36 ----- Message from Vanesa Carranza MD sent at 10/28/2024 5:20 AM EDT ----- Blood sugar and chemistry are normal. Cholesterol is excellent, continue current medications and low-fat low-cholesterol diet. Normal [facility] 37on 10-27-2024 37 Personalized Preventative Plan for Tana Flores - 10/27/2024 Medicare offers a range of preventative health benefits. Some of the tests and screenings are paid in full while others may be subject to a deductible, co-insurance, and / or copay. Some of these benefits include a comprehensive review of your medical history including lifestyle, illnesses that may run in your family, and various assessments and screenings as appropriate. After reviewing your medical record and screening and assessments performed today, your provider may have ordered immunizations, labs, imaging, and / or referrals for you. A list of these orders (if applicable) as well as your Preventative Care list are included within your After Visit Summary for your review. Other Preventative Recommendations: A preventive eye exam by an magneto specialist is recommended every 1-2 years to screen for glaucoma, cataracts, macular degeneration, and other eye disorders. A preventive dental visit is recommended every 6 months. Try to get at least 150 minutes of exercise per week or 10,000 steps per day on a pedometer. You need 1200-1500mg of calcium and 3486-5850 international units of vitamin D per day. It is possible to meet your calcium requirement with diet alone, but a vitamin D supplement is usually necessary to meet this goal. When exposed to the sun, use a sunscreen that protects against both UVA and UVB radiation with an SPF of 30 or greater. Reapply every 2-3 hours or after sweating, drying off with a towel, or swimming. Always wear a seat belt when traveling in a car. Always wear a helmet when riding a bicycle or a motorcycle Normal [facility] Office Visiton 10-27-2024 Follow-up visit [id number] FloresTana adams Jaime 1945 M Date Provider Department Center 10/27/2024 [id number] Family History Family Status - Relation Status Age at Mother Father Level of Service:G0439 [place] PPPS, SUBSEQ VISIT Reason for Visit and Comments: Medicare Annual Wellness Visit Subsequent [627] Blood Work [079131] Health Maintenance [872] - Rsv vaccine- not done Lung cancer screening- refuse Normal [facility] Progress Noteon 10-27-2024 Progress Note Blood pressure was again initially elevated, recheck was still high we will have him follow-up in 1 week for blood pressure check. Normal [facility] Progress Note Discussed smoking cessation, he shows some interest in trying to quit so we discussed making it difficult to smoke by putting his cigarettes somewhere where he has to physically go and get each 1 he wants to smoke. Also to do something to help with the hand and mouth part of the addiction. Normal [facility] Progress Note Controlled, continue rosuvastatin 40 mg daily [facility] Progress Note Stable, has had no angina, continue rosuvastatin 40 mg daily [facility] Progress Note [facility] - [address] [address] Dept: [phone] Dept Chief Complaint: Tana Flores is an 79 y.o. male here for an annual wellness visit. Assessment/Plan : Problem List Items Addressed This Visit Cigarette smoker Discussed smoking cessation, he shows some interest in trying to quit so we discussed making it difficult to smoke by putting his cigarettes somewhere where he has to physically go and get each 1 he wants to smoke. Also to do something to help with the hand and mouth part of the addiction. Coronary artery disease involving [place] coronary artery of [place] heart without angina pectoris Stable, has had no angina, continue rosuvastatin 40 mg daily Elevated BP without diagnosis of hypertension Blood pressure was again initially elevated, recheck was still high we will have him follow-up in 1 week for blood pressure check. Mixed hyperlipidemia Controlled, continue rosuvastatin 40 mg daily Relevant Orders Lipid panel Other Visit Diagnoses Routine general medical examination at health care facility - Primary Screening for diabetes mellitus Relevant Orders Comprehensive metabolic panel I have reviewed and reconciled the medication list with the patient today. Current Outpatient Medications Medication Sig Dispense Refill coenzyme Q-10 50 MG capsule Take 50 mg by mouth daily. [place]-3 Fatty Acids (OMEGA-3 FISH OIL PO) Take by mouth. rosuvastatin (Crestor) 40 MG tablet Take 1 tablet by mouth daily. 90 tablet 1 No current facility-administered medications for this visit. Also reviewed during this visit: The following health maintenance schedule was reviewed with the patient and provided in printed form in the after visit summary: Health Maintenance Topic Date Due Lung Cancer Screening Never done RSV Immunization for Adults (1 - 1-dose 75+ series) Never done DTaP/Tdap/Td Vaccines (1 - Tdap) 05/04/2025 (Originally 1964) Pneumococcal Vaccine: 50+ Years (1 of 2 - PCV) 05/04/2025 (Originally 1964) COVID-19 Vaccine (1 - season) 2025 (Originally 03/07/2024) Influenza Vaccine (Season Ended) 2025 Depression Screening 05/04/2025 Lipid Panel 10/26/2028 Medicare Advantage Annual Wellness Visit Completed RSV Immunization under 20 Months Aged Out HIB Vaccines Aged Out Hepatitis B Vaccines Aged Out IPV Vaccines Aged Out Hepatitis A Vaccines Aged Out Meningococcal Vaccine Aged Out Rotavirus Vaccines Aged Out HPV Vaccines Aged Out Zoster Vaccines Discontinued Hepatitis C Screening Discontinued List of current healthcare providers: Patient Care Team: Vanesa Carranza MD as PCP - General (Family Medicine) Orders Placed This Encounter Procedures Lipid panel Standing Status: Future Number of Occurrences: 1 Standing Expiration Date: 10/27/2025 Comprehensive metabolic panel Standing Status: Future Number of Occurrences: 1 Standing Expiration Date: 10/27/2025 Review of Systems Constitutional: Negative for activity change, appetite change, chills, fever and unexpected weight change. HENT: Negative for ear pain and sore throat. Respiratory: Negative for shortness of breath. Cardiovascular: Negative for chest pain and palpitations. Gastrointestinal: Negative for abdominal pain, blood in stool, constipation and diarrhea. Genitourinary: Negative for dysuria, frequency, hematuria and urgency. Musculoskeletal: Negative for arthralgias and back pain. Skin: Negative. Neurological: Negative for weakness and numbness. Psychiatric/Behaviora l: Negative for dysphoric mood. The patient is not nervous/anxious. Physical Exam Vitals and nursing note reviewed. Constitutional: General: He is not in acute distress. Appearance: Normal appearance. HENT: Right Ear: Tympanic membrane, ear canal and external ear normal. Left Ear: Tympanic membrane, ear canal and external ear normal. Mouth/Throat: Mouth: Mucous membranes are moist. Pharynx: Oropharynx is clear. Eyes: Extraocular Movements: Extraocular movements intact. Conjunctiva/sclera: Conjunctivae normal. Pupils: Pupils are equal, round, and reactive to light. Neck: Thyroid: No thyromegaly. Vascular: No carotid bruit. Cardiovascular: Rate and Rhythm: Normal rate and regular rhythm. Heart sounds: Normal heart sounds. No murmur heard. Pulmonary: Effort: Pulmonary effort is normal. Breath sounds: Normal breath sounds. Abdominal: General: Bowel sounds are normal. Palpations: Abdomen is soft. Tenderness: There is no abdominal tenderness. Musculoskeletal: General: Normal range of motion. Cervical back: Neck supple. Lymphadenopathy: Cervical: No cervical adenopathy. Skin: General: Skin is warm and dry. Neurological: General: No focal deficit present. Mental Status: He is alert and oriented to person, place, and time. Psychiatric: Mood and A (more content not included)... Normal [facility] Progress Note Patient verified by last name and date of . Normal [facility] 36on 05-27-2024 36 Notified. Normal [facility] 36 Blood pressure is okay, continue current medications and very strict low-sodium diet Normal [facility] 36 Tana came in for a BP check, reading was 139/83 pulse 84. Normal [facility] Progress Noteon 05-27-2024 Progress Note [address] [facility] [id number] Patient arrived for nurse visit today and was verified by name and . Supervising provider for clinic visit Dr. Carranza is currently not taking any anti- hypertensive medications Shortness of breath no Medication compliance yes Medication Reconciliation yes B/P Reading taken automatic Home Monitoring no Patient advised if follow up is needed, outreach will occur in 48 hours [facility] Mike 02-28-2023 ALT [Catalytic activity/Vol] 13 U/L 9 - 46 U/L [facility] Tierra 02-28-2023 AST [Catalytic activity/Vol] 11 U/L 10 - 35 U/L [facility] Lipid 1996 panelon 3 Cholesterol [Mass/Vol] 141 mg/dL NINF - 200 mg/dL [facility] Cholesterol in HDL [Mass/Vol] 44 mg/dL > OR = 40 [facility] Cholesterol in LDL [Mass/Vol] 65 mg/dL mg/dL (calc) [facility] Comment on above: Reference range: <10 0 Desirable range <100 mg/dL for primary prevention; <70 mg/dL for patients with CHD or diabetic patients with > or = 2 CHD risk factors. LDL-C is now calculated using the Sulema calculation, which is a validated novel method providing better accuracy than the Friedewald equation in the estimation of LDL-C. Nacho WU et al. GIANA. 2013;310(19): 2364-5695 (http://education.[employer]/faq/CVY493) Cholesterol non HDL [Mass/Vol] 97 mg/dL [facility] Comment on above: For patients with di abetes plus 1 major ASCVD risk factor, treating to a non-HDL-C goal of <100 mg/dL (LDL-C of <70 mg/dL) is considered a therapeutic option. Cholesterol.total/Ch olesterol in HDL [Mass ratio] 3.2 {ratio} [facility] Interpretation and review of laboratory results Abnormal [facility] Triglyceride [Mass/Vol] 272 mg/dL High [facility] - 150 mg/dL [facility] Comment on above: If a non-fasting specimen was collected, consider repeat triglyceride testing on a fasting specimen if clinically indicated. Jen et al. J. of Clin. Lipidol. 2015;9:129-169. No Panel Informationon 02-28 [facility] Vital Signs Date Time Vital Sign Value Performing Clinician Serafin [email or web address] 05-10-2025 11:57-0500 Diastolic blood pressure 91 mm[Hg] Schedule [facility] 05-10-2025 11:57-0500 Heart rate 94 /min Schedule [facility] 05-10-2025 11:57-0500 SaO2% (BldA) [Mass fraction] 90 % Schedule [facility] 05-10-2025 11:57-0500 Systolic blood pressure 164 mm[Hg] Schedule [facility] 05-03-2025 11:30-0400 Diastolic blood pressure 90 mm[Hg] Vanesa Carranza MD Work Phone: [facility] 05-03-2025 11:30-0400 Heart rate 84 /min Vanesa Carranza MD Work Phone: [facility] 05-03-2025 11:30-0400 Systolic blood pressure 150 mm[Hg] Vanesa Carranza MD Work Phone: [facility] 05-03-2025 10:59-0400 Body height 160.7 cm Vanesa Carranza MD Work Phone: [facility] 05-03-2025 10:59-0400 Body mass index (BMI) [Ratio] 28.37 kg/m2 Vanesa Carranza MD Work Phone: [facility] 05-03-2025 10:59-0400 Body weight 73.21 kg Vanesa Carranza MD Work Phone: [facility] 05-03-2025 10:59-0400 SaO2% (BldA) [Mass fraction] 94 % Vanesa Carranza MD Work Phone: [facility] 04-05-2025 11:41-0400 Body height 160.[address] Vanesa Carranza MD Work Phone: [facility] 04-05-2025 11:41-0400 Body mass index (BMI) [Ratio] 28.9 kg/m2 Dr. Vanesa Carranza MD Work Phone: [facility] 04-05-2025 11:41-0400 Body temperature 98.1 [degF] Dr. Vanesa Carranza MD Work Phone: [facility] 04-05-2025 11:41-0400 Body weight 74.[address] Vanesa Carranza MD Work Phone: [facility] 04-05-2025 11:41-0400 Diastolic blood pressure 82 mm[Hg] Dr. Vanesa Carranza MD Work Phone: [facility] 04-05-2025 11:41-0400 Heart rate 105 /min Dr. Vanesa Carranza MD Work Phone: [facility] 04-05-2025 11:41-0400 Respiratory rate 20 /min Dr. Vanesa Carranza MD Work Phone: [facility] 04-05-2025 11:41-0400 SaO2% (BldA) [Mass fraction] 95 % Dr. Vanesa Carranza MD Work Phone: [facility] 04-05-2025 11:41-0400 Systolic blood pressure 122 mm[Hg] Dr. Vanesa Carranza MD Work Phone: [facility] 10-27-2024 09:58-0400 Diastolic blood pressure 82 mm[Hg] Vanesa Carranza MD Work Phone: [facility] 10-27-2024 09:58-0400 Heart rate 89 /min Vanesa Carranza MD Work Phone: [facility] 10-27-2024 09:58-0400 Systolic blood pressure 149 mm[Hg] Vanesa Carranza MD Work Phone: [facility] 10-27-2024 09:27-0400 Body height 160.7 cm Vanesa Carranza MD Work Phone: [facility] 10-27-2024 09:27-0400 Body mass index (BMI) [Ratio] 28.22 kg/m2 Vanesa Carranza MD Work Phone: [facility] 10-27-2024 09:27-0400 Body weight 72.85 kg Vanesa Carranza MD Work Phone: [facility] 10-27-2024 09:27-0400 SaO2% (BldA) [Mass fraction] 92 % Vanesa Carranza MD Work Phone: [facility] 05-06-2024 11:51-0400 Diastolic blood pressure 85 mm[Hg] Vanesa Carranza MD Work Phone: [facility] 05-06-2024 11:51-0400 Heart rate 80 /min Vanesa Carranza MD Work Phone: [facility] 05-06-2024 11:51-0400 Systolic blood pressure 149 mm[Hg] Vanesa Carranza MD Work Phone: [facility] 05-06-2024 11:34-0400 Body height 160.7 cm Vanesa Carranza MD Work Phone: [email or web address] 05-06-2024 11:34-0400 Body mass index (BMI) [Ratio] 28.33 kg/m2 Vanesa Carranza MD Work Phone: [email or web address] 05-06-2024 11:34-0400 Body weight 73.12 kg Vanesa Carranza MD Work Phone: [email or web address] 05-06-2024 11:34-0400 SaO2% (BldA) [Mass fraction] 95 % Vanesa Carranza MD Work Phone: [email or web address] 10-27-2023 09:20-0400 Body height 160.7 cm Vanesa Carranza MD Work Phone: [email or web address] 10-27-2023 09:20-0400 Body mass index (BMI) [Ratio] 27.73 kg/m2 Vanesa Carranza MD Work Phone: [email or web address] 10-27-2023 09:20-0400 Body weight 71.58 kg Vanesa Carranza MD Work Phone: [email or web address] 10-27-2023 09:20-0400 Diastolic blood pressure 79 mm[Hg] Vanesa Carranza MD Work Phone: [email or web address] 10-27-2023 09:20-0400 Heart rate 94 /min Vanesa Carranza MD Work Phone: [email or web address] 10-27-2023 09:20-0400 SaO2% (BldA) [Mass fraction] 91 % Vanesa Carranza MD Work Phone: [email or web address] 10-27-2023 09:20-0400 Systolic blood pressure 128 mm[Hg] Vanesa Carranza MD Work Phone: [email or web address] 09-17-2023 10:59-0400 Body height 165.1 cm Vaneas Carranza MD Work Phone: [email or web address] 09-17-2023 10:59-0400 Body mass index (BMI) [Ratio] 26.63 kg/m2 Vanesa Carranza MD Work Phone: [email or web address] 09-17-2023 10:59-0400 Body weight 72.58 kg Vanesa Carranza MD Work Phone: [email or web address] 09-17-2023 10:59-0400 Diastolic blood pressure 80 mm[Hg] Vanesa Carranza MD Work Phone: [email or web address] 09-17-2023 10:59-0400 Heart rate 87 /min Vanesa Carranza MD Work Phone: [email or web address] 09-17-2023 10:59-0400 SaO2% (BldA) [Mass fraction] 93 % Vanesa Carranza MD Work Phone: [email or web address] 09-17-2023 10:59-0400 Systolic blood pressure 133 mm[Hg] Vanesa Carranza MD Work Phone: [email or web address] 10-24-2022 11:41-0400 Diastolic blood pressure 96 mm[Hg] Vanesa Carranza MD Work Phone: [email or web address] 10-24-2022 11:41-0400 Heart rate 101 /min Vaensa Carranza MD Work Phone: [email or web address] 10-24-2022 11:41-0400 Systolic blood pressure 162 mm[Hg] Vanesa Carranza MD Work Phone: [email or web address] 10-24-2022 10:54-0400 Body height 165.1 cm Vanesa Carranza MD Work Phone: [email or web address] 10-24-2022 10:54-0400 Body mass index (BMI) [Ratio] 25.13 kg/m2 Vanesa Carranza MD Work Phone: [email or web address] 10-24-2022 10:54-0400 Body weight 68.49 kg Vanesa Carranza MD Work Phone: [email or web address] 10-24-2022 10:54-0400 SaO2% (BldA) [Mass fraction] 95 % Vanesa Carranza MD Work Phone: [facility] Encounters Encounter Date Encounter Type Care Provider Facility Start: 05-11-2025 End: 05-11-2025 Telephone encounter Vanesa Carranza MD Work Phone: [facility] Comment on above: Release of Informati on Start: 05-10-2025 End: 05-10-2025 Clinical Support Schedule [facility] Comment on above: Elevated BP without diagnosis of hypertension (Primary Dx) Start: 05-03-2025 End: 05-03-2025 Office outpatient visit 25 minutes Vanesa Carranza MD Work Phone: [facility] Comment on above: Coronary artery dise ase involving [place] coronary artery of [place] heart without angina pectoris (Primary Dx); Elevated BP without diagnosis of hypertension; Mixed hyperlipidemia; Ataxia; Cigarette smoker; Refused influenza vaccine Start: 05-03-2025 End: 05-03-2025 ambulatory VANESA CARRANZA [facility] Start: 04-05-2025 End: 04-05-2025 Patient encounter procedure Moe Braden [facility] Work Phone: Start: 04-05-2025 End: 04-05-[address] Vanesa Carranza MD Work Phone: [facility] Start: 11-04-2024 End: 11-04-2024 Refill Vanesa Carranza MD Work Phone: [facility] Start: 10-27-2024 End: 10-27-2024 Assay of hemosiderin, quant Vanesa Carranza MD Work Phone: [facility] Work Phone: Start: 10-27-2024 End: 10-27-2024 Patient encounter procedure Vanesa Carranza MD Work Phone: [facility] Comment on above: Routine general medi violet examination at health care facility (Primary Dx); Coronary artery disease involving [place] coronary artery of [place] heart without angina pectoris; Mixed hyperlipidemia; Cigarette smoker; Elevated BP without diagnosis of hypertension; Screening for diabetes mellitus Start: 10-27-2024 End: 10-27-2024 ambulatory [facility] Start: 10-27-2024 End: 10-27-2024 Encounter for general adult medical examination without abnormal findings VANESA TERE [facility] Start: 05-27-2024 End: 05-27-2024 Telephone encounter Vanesa Carranza MD Work Phone: [facility] Comment on above: Blood Pressure Check Start: 05-27-2024 End: 05-27-2024 ambulatory [facility] Start: 05-06-2024 End: 05-06-2024 Office outpatient visit 15 minutes Vanesa Carranza MD Work Phone: [facility] Comment on above: Coronary artery dise ase involving [place] coronary artery of [place] heart without angina pectoris (Primary Dx); Mixed hyperlipidemia; Cigarette smoker; Refused influenza vaccine Start: 04-19-2024 End: 04-19-2024 Refill Vanesa Carranza MD Work Phone: [facility] Start: 10-27-2023 End: 10-27-2023 Patient encounter procedure Vanesa Carranza MD Work Phone: [facility] Comment on above: Medicare annual well ness visit, subsequent (Primary Dx); Coronary artery disease involving [place] coronary artery of [place] heart without angina pectoris; Mixed hyperlipidemia; Screening for diabetes mellitus Start: 09-17-2023 End: 09-17-2023 Office outpatient visit 10 minutes Vanesa Carranza MD Work Phone: [facility] Comment on above: Mixed hyperlipidemia (Primary Dx); Elevated BP without diagnosis of hypertension Start: 02-27-2023 Orders Only Vaensa Carranza MD Work Phone: [facility] Start: 10-24-2022 End: 10-24-2022 Patient encounter procedure Vanesa Carranza MD Work Phone: [facility] Comment on above: Initial Medicare ann ual wellness visit (Primary Dx); Coronary artery disease involving [place] coronary artery of [place] heart without angina pectoris; Elevated BP without diagnosis of hypertension; Screening for diabetes mellitus Procedures Date Procedure Procedure Detail Performing Clinician Start: 10-27-2024 Adult depression scr eening assessment Vanesa Carranza MD Work Phone: Start: 10-27-2024 Lipid 1996 panel - S juan c or Plasma Vanesa Carranza MD Work Phone: Start: 05-04-2024 Adult depression scr eening assessment Vanesa Carranza MD Work Phone: Start: 10-27-2023 Adult depression scr eening assessment Vanesa Carranza MD Work Phone: Start: 10-27-2023 Lipid 1996 panel - S juan c or Plasma Vanesa Carranza MD Work Phone: Start: 02-27-2023 Lipid panel Vanesa Crespo MD Work Phone: Start: 02-27-2023 Transferase aspartat e amino ast sgot Vanesa Carranza MD Work Phone: Start: 02-27-2023 Lipid 1996 panel - S juan c or Plasma Vanesa Carranza MD Work Phone: Start: 10-24-2022 Adult depression scr eening assessment Vanesa Carranza MD Work Phone: Plan of Treatment Date Care Activity Detail Author Start: 10-27-2029 Lipid panel Lipid Panel [facility] Start: 10-26-2028 Lipid panel Lipid Panel [facility] Start: 02-28-2028 Lipid panel Lipid Panel [facility] Start: 05-05-2026 End: 05-05-2026 Patient encounter procedure 05/05/2026 10:40 AM EDT Office Visit [facility] [place] [address] [place] [address] [place] [address] Brittnee Helm, [employer] - JAIL OFFICER [address] [place] [address] [facility] [place] Start: 05-03-2026 COVID-19 Vaccine ( season) COVID-19 Vaccine ( season) [facility] Comment on above: Postponed from 03/07 (Patient Refused) Start: 05-03-2026 RSV Immunization for Adults (1 - 1-dose 75+ series) RSV Immunization for Adults (1 - 1-dose 75+ series) [facility] Comment on above: Postponed from 09/07 (Patient Refused) Start: 01-03-2026 Influenza vaccination Influenza Vacc ine (#1) [facility] Comment on above: Postponed from 03/07 (Patient Refused) Start: 11-04-2025 End: 11-04-2025 Patient encounter procedure 11/04/2025 10:40 AM EDT [facility] [address] [place] [address] Brittnee Helm, LEONARD - TUYET [address] [place] [address] [facility] Start: 11-01-2025 End: 11-01-2025 Patient encounter procedure 11/01/2025 9:30 AM EDT Office Visit [facility] [place] [address] [place] [address] Vanesa Carranza MD [address] [place] [address] [facility] Start: 10-27-2025 Depression Screening Depression Scre ening [facility] Start: 05-26-2025 End: 05-26-2025 Clinical Support 05/26/2025 11:00 AM EST Clinical Support [facility] [place] [address] [place] [address] [facility] Start: 05-10-2025 End: 05-10-2025 Clinical Support 05/10/2025 11:30 AM EST Clinical Support [address] [place] [address] [facility] Start: 05-04-2025 COVID-19 Vaccine ( season) COVID-19 Vaccine ( season) [facility] Comment on above: Postponed from 03/07 (Patient Refused) Start: 05-04-2025 Depression Screening Depression Scre ening [facility] Start: 05-04-2025 DTaP/Tdap/Td Vaccine s (1 - Tdap) DTaP/Tdap/Td Vaccines (1 - Tdap) [facility] Comment on above: Postponed from 09/07 (Patient Refused) Start: 05-04-2025 Pneumococcal Vaccine : 50+ Years (1 of 2 - PCV) Pneumococcal Vaccine: 50+ Years (1 of 2 - PCV) [facility] Comment on above: Postponed from 09/07 (Patient Refused) Start: 05-04-2025 Pneumococcal Vaccine : 65+ Years (1 of 2 - PCV) Pneumococcal Vaccine: 65+ Years (1 of 2 - PCV) [facility] Comment on above: Postponed from 09/07 (Patient Refused) Start: 05-03-2025 End: 05-03-2025 Patient encounter procedure 05/03/2025 11:00 AM EDT Office [place] [address] [place] [address] Vanesa Carranza MD [address] [place] [address] [facility] Start: 03-07-2025 Influenza vaccination Influenz a Vaccine (Season Ended) [facility] Start: 01-03-2025 Influenza vaccination Influenza Vacc ine (#1) [facility] Comment on above: Postponed from 03/07 (Patient Refused) Start: 11-04-2024 End: 11-04-2024 Clinical Support 11/04/2024 10:00 AM EDT Clinical Support [place] [address] [place] [address] [facility] Start: 10-27-2024 End: 10-27-2025 Comprehensive metabolic 1998 panel - Serum or Plasma Comprehensive metabolic panel Lab Routine Screening for diabetes mellitus Expected: 10/27/2024 (Approximate), Expires: 10/27/2025 [facility] Comment on above: Expected: 10/27/2024 (Approximate), Expires: 10/27/2025 Start: 10-27-2024 End: 10-27-2025 Lipid 1996 panel - Serum or Plasma Lipid panel Lab Routine Mixed hyperlipidemia Expected: 10/27/2024 (Approximate), Expires: 10/27/2025 [facility] Work Phone: Comment on above: Expected: 10/27/2024 (Approximate), Expires: 10/27/2025 Start: 10-27-2024 End: 10-27-2024 Patient encounter procedure [facility] Start: 10-26-2024 COVID-19 Vaccine ( season) COVID-19 Vaccine ( season) [facility] Comment on above: Postponed from 03/07 (Patient Refused) Start: 10-26-2024 Depression Screening Depression Scre ening [facility] Start: 10-26-2024 RSV Immunization age d 60 or older (1 - 1-dose 60+ series) RSV Immunization aged 60 or older (1 - 1-dose 60+ series) [facility] Comment on above: Postponed from 09/07 (Patient Refused) Start: 10-26-2024 RSV Immunization for Adults (1 - 1-dose 75+ series) RSV Immunization for Adults (1 - 1-dose 75+ series) [facility] Comment on above: Postponed from 09/07 (Patient Refused) Start: 10-26-2024 Screening for malign ant neoplasm of lung Lung Cancer Screening [facility] Comment on above: Postponed from 09/07 (Patient Refused) Start: 05-27-2024 End: 05-27-2024 Clinical Support 05/27/2024 11:00 AM EST Clinical Support [facility] [address] [place] [address] [facility] Start: 05-06-2024 End: 05-06-2024 Patient encounter procedure 05/06/2024 11:45 AM EDT Office Visit [facility] [address] [facility] [place] [address] Vanesa Carranza MD [address] [facility] [place] [address] [facility] Start: 04-27-2024 End: 04-27-2024 Patient encounter procedure 04/27/2024 9:45 AM EDT Office Visit [facility] [address] [place] [address] Vanesa Carranza MD [address] [place] [address] [facility] Start: 03-07-2024 COVID-19 Vaccine ( season) COVID-19 Vaccine ( season) [facility] Start: 03-07-2024 Influenza vaccination [facility] Start: 01-28-2024 COVID-19 Vaccine (#1) COVID-19 Vacci ne (#1) [facility] Comment on above: Postponed from 03/10 (Patient Refused) Start: 01-28-2024 DTaP/Tdap/Td Vaccine s (1 - Tdap) DTaP/Tdap/Td Vaccines (1 - Tdap) [facility] Comment on above: Postponed from 09/07 (Patient Refused) Start: 01-28-2024 Pneumococcal Vaccine : 65+ Years (1 - PCV) Pneumococcal Vaccine: 65+ Years (1 - PCV) [facility] Comment on above: Postponed from 09/07 (Patient Refused) Start: 01-28-2024 Pneumococcal Vaccine : 65+ Years (1 of 2 - PCV) Pneumococcal Vaccine: 65+ Years (1 of 2 - PCV) [facility] Comment on above: Postponed from 09/07 (Patient Refused) Start: 01-28-2024 Zoster Vaccines (1 of 2) Zoster Vacc nato (1 of 2) [facility] Comment on above: Postponed from 09/07 (Patient Refused) Start: 10-27-2023 End: 10-26-2024 Comprehensive metabolic 1998 panel - Serum or Plasma Comprehensive metabolic panel Lab Routine Screening for diabetes mellitus Expected: 10/27/2023 (Approximate), Expires: 10/26/2024 [facility] Comment on above: Expected: 10/27/2023 (Approximate), Expires: 10/26/2024 Start: 10-27-2023 End: 10-26-2024 Lipid 1996 panel - Serum or Plasma Lipid panel Lab Routine Mixed hyperlipidemia Expected: 10/27/2023 (Approximate), Expires: 10/26/2024 [facility] Work Phone: Comment on above: Expected: 10/27/2023 (Approximate), Expires: 10/26/2024 Start: 10-27-2023 End: 10-27-2023 Patient encounter procedure 10/27/2023 9:30 AM EDT Office Visit [facility] [address] [place], [place] [address] [address] Vanesa Carranza MD [address] [place] [id number] [facility] Start: 10-25-2023 Depression Screening Depression Scre ening [facility] Start: 03-07-2023 Influenza vaccination [facility] Start: 01-28-2023 End: 01-28-2023 Patient encounter procedure 01/28/2023 Office Visit Family Medicine Vanesa Carranza MD [address] [place] [id number] [facility] Start: 10-31-2022 End: 10-31-2022 Clinical Support 10/31/2022 Clinical Support Family Medicine [facility] Start: 10-24-2022 End: 10-25-2023 Comprehensive metabolic 1998 panel - Serum or Plasma Comprehensive metabolic panel Lab Routine Screening for diabetes mellitus Expected: 10/24/2022 (Approximate), Expires: 10/25/2023 [facility] Comment on above: Expected: 10/24/2022 (Approximate), Expires: 10/25/2023 Start: 10-24-2022 End: 10-25-2023 Lipid 1996 panel - Serum or Plasma Lipid panel Lab Routine Coronary artery disease involving [place] coronary artery of [place] heart without angina pectoris Expected: 10/24/2022 (Approximate), Expires: 10/25/2023 [facility] Work Phone: Comment on above: Expected: 10/24/2022 (Approximate), Expires: 10/25/2023 Start: 2021 RSV Immunization for Adults (1 - 1-dose 75+ series) RSV Immunization for Adults (1 - 1-dose 75+ series) [facility] Start: 2006 RSV Immunization age d 60 or older (1 - 1-dose 60+ series) RSV Immunization aged 60 or older (1 - 1-dose 60+ series) [facility] Start: 1996 Screening for malign ant neoplasm of lung Lung Cancer Screening [facility] Start: 1996 Zoster Vaccines (1 of 2) Zoster Vacc nato (1 of 2) [facility] Start: 1965 DTaP/Tdap/Td Vaccine s (1 - Tdap) DTaP/Tdap/Td Vaccines (1 - Tdap) [facility] Start: 1965 Pneumococcal Vaccine : 50+ Years (1 of 2 - PCV) Pneumococcal Vaccine: 50+ Years (1 of 2 - PCV) [facility] Start: 1964 Hepatitis C screening Hepatitis C Sc reening [facility] Start: 1952 Pneumococcal Vaccine : 65+ Years (1 - PCV) Pneumococcal Vaccine: 65+ Years (1 - PCV) [facility] Start: 1952 Pneumococcal Vaccine : 65+ Years (1 of 2 - PCV) Pneumococcal Vaccine: 65+ Years (1 of 2 - PCV) [facility] Start: 03-10-1946 COVID-19 Vaccine (#1) COVID-19 Vacci ne (#1) [facility] Start: 1945 Hepatitis B Vaccines (1 of 3 - 3-dose series) Hepatitis B Vaccines (1 of 3 - 3-dose series) [facility] Start: 1945 Lipid panel Lipid Panel [facility] Payers Date Payer Category Payer Self-pay 2023 Medicare HMO [employer] [id number] 2023 Unknown [facility] [employer] S [employer] [id number] 2023-Present [address] [place] [address] Commercial [id number] 2023 Medicare [id number] 2022 Medicare [id number] Unknown [id number] Social History Date Type Detail Facility [facility] Tobacco smoking consumption unknown [facility] Start: 10-24-2022 History SDOH Alcohol Frequency 3 [facility] Start: 10-24-2022 History SDOH Alcohol Std Drinks 1 [facility] Start: 1945 Sex Assigned At Not on file [facility] Start: 10-14-2022 End: 02-27-2023 Exposure to SARS-CoV-2 (event) Not sure [facility] Start: 07-07-1958 End: 05-04-2024 Tobacco smoking status WIIS Smokes tobacco daily [facility] Start: 01-01-1960 History of tobacco use Cigarette Smoker [facility] Start: 01-28-2023 End: 10-27-2024 Cigarettes smoked current (pack per day) - Reported 1 [facility] Start: 01-28-2023 End: 05-04-2024 Tobacco use and exposure Smokeless tobacco non-user [facility] Start: 01-28-2023 End: 09-17-2023 Alcohol intake Current drinker of alcohol (finding) [facility] Start: 10-24-2022 End: 10-27-2024 Alcohol Use Disorder Identification Test - Consumption [AUDIT-C] [facility] How often to you hav e a drink containing alcohol? 2-4 times a month [facility] How many standard dr inks containing alcohol do you have on a typical day? 1 or 2 [facility] How often do you hav e 6 or more drinks on 1 occasion? Never [facility] How hard is it for y ou to pay for the very basics like food, housing, medical care, and heating Not hard at all [facility] (I/We) worried blane er (my/our) food would run out before (I/we) got money to buy more. Never true [facility] In the past 12 month s, was there a time when you were not able to pay the mortgage or rent on time? No [facility] Start: 10-27-2023 End: 05-03-2025 Alcohol intake Ex-drinker (finding) [facility] Start: 10-27-2023 Alcohol Comment couple times per month 1-2 drinks [facility] Do you belong to any clubs or organizations such as tenriism groups, unions, fraternal or athletic groups, or school groups? Yes [facility] Are you now , , , , never or living with a partner? Never [facility] Do you feel stress - tense, restless, nervous, or anxious, or unable to sleep at night because your mind is troubled all the time - these days [OSQ] Not at all [facility] Start: 02-04-2022 Sex Male (finding) [facility] How hard is it for y ou to pay for the very basics like food, housing, medical care, and heating Not very hard [facility] Do you feel stress - tense, restless, nervous, or anxious, or unable to sleep at night because your mind is troubled all the time - these days [OSQ] Only a little [facility] Start: 1945 Sex Assigned At [facility] How often do you nee d to have someone help you when you read instructions, pamphlets, or other written material from your doctor or pharmacy [SILS] Rarely [facility] Clinical Notes 10-24-2022 to 05-12-2025 Addendum Note - Vanesa Carranza MD - 05/12/2025 12:19 PM ESTAddendum Note - Vanesa Carranza MD - 05/12/2025 12:19 PM ESTAddendum Note - Vanesa Carranza MD - 05/12/2025 12:19 PM EST Note Date & Type Note Facility 05-12-2025 Note Addended by: VANESA CARRANZA on: 05/12/2025 12:19 PM Modules accepted: Orders [facility] 05-12-2025 Note Addended by: VANESA CARRANZA on: 05/12/2025 12:19 PM Modules accepted: Orders [facility] 05-12-2025 Telephone encount er Note Rx sent [facility] 05-12-2025 Miscellaneous Notes Addended by: VANESA CARRANZA on: 05/12/2025 12:19 PM Modules accepted: Orders Rx sent Addended by: BERT OVERTON on: 05/12/2025 12:07 PM Modules accepted: Orders Called and spoke with patient agreeable to start rx. Pended RX. Scheduled in 2 weeks for a bp check. pharmacy verified. I am sorry that was supposed to be losartan 50 mg for blood pressure rosuvastatin is for his cholesterol. Clarify medication wanting to start for hypertension? Progress Notes Vanesa Carranza MD (Physician) Family Medicine Blood pressure continues to be elevated would recommend starting rosuvastatin 50 mg daily and recheck in 1 week. Message released to patient as written. Yes Patient's further questions if applicable: no Were all questions from office addressed or relayed to the patient from encounter: No Release regarding BP clinical support Patient stated that he is already on rosuvastatin 40mg for cholesterol. documented in this encounter [facility] 05-12-2025 Note Addended by: BERT OVERTON on: 05/12/2025 12:07 PM Modules accepted: Orders [facility] 05-12-2025 Note Addended by: BERT OVERTON on: 05/12/2025 12:07 PM Modules accepted: Orders [facility] 05-12-2025 Telephone encount er Note Called and spoke with patient agreeable to start rx. Pended RX. Scheduled in 2 weeks for a bp check. pharmacy verified. [facility] 05-11-2025 Telephone encount er Note I am sorry that was supposed to be losartan 50 mg for blood pressure rosuvastatin is for his cholesterol. [facility] 05-11-2025 Miscellaneous Notes Formattin g of this note might be different from the original. I am sorry that was supposed to be losartan 50 mg for blood pressure rosuvastatin is for his cholesterol. Clarify medication wanting to start for hypertension? Progress Notes Vanesa Carranza MD (Physician) Family Medicine Blood pressure continues to be elevated would recommend starting rosuvastatin 50 mg daily and recheck in 1 week. Message released to patient as written. Yes Patient's further questions if applicable: no Were all questions from office addressed or relayed to the patient from encounter: No Release regarding BP clinical support Patient stated that he is already on rosuvastatin 40mg for cholesterol. documented in this encounter [facility] 05-11-2025 Note Clarify medication w anting to start for hypertension? Progress Notes Vanesa Carranza MD (Physician) Family Medicine Blood pressure continues to be elevated would recommend starting rosuvastatin 50 mg daily and recheck in 1 week. [facility] 05-11-2025 Telephone encount er Note Clarify medication wanting to start for hypertension? Progress Notes Vanesa Carranza MD (Physician) Family Medicine Blood pressure continues to be elevated would recommend starting rosuvastatin 50 mg daily and recheck in 1 week. [facility] 05-11-2025 Telephone encount er Note Message released to patient as written. Yes Patient's further questions if applicable: no Were all questions from office addressed or relayed to the patient from encounter: No Release regarding BP clinical support Patient stated that he is already on rosuvastatin 40mg for cholesterol. [facility] 05-10-2025 History of Presen t illness Narrative The patient, Tana Flores, identity was verified by name and . Supervising provider for clinic visit: Dr. Vanesa Carranza Chief Complaint Patient presents with Blood Pressure Check Reason for visit: Elevated BP Reading at last visit Tana D Mark has validated current medications Patient states compliant with medications as written: No BP medication taken prior to this visit? Patient not currently prescribed b/p medication Are you having any symptoms? No Current Blood Pressure:157/82 Current Heart Rate:94 Did Blood Pressure need rechecked: yes Second Blood Pressure Readin/91 Second Heart Rate: 94 Assessment/Plan: There are no diagnoses linked to this encounter. elevated Future Appointments Date Time Provider Department Center 11/04/2025 10:40 AM LEONARD Castillo CNP [facility] 05/05/2026 10:40 AM [facility] Cc[facility] provider blood pressure readings? Yes Blood pressure continues to be elevated would recommend starting rosuvastatin 50 mg daily and recheck in 1 week. Called patient and left vm to call our office back regarding b/p check. documented in this encounter [facility] 05-10-2025 History of Presen t illness Narrative The patient, Tana Flores, identity was verified by name and . Supervising provider for clinic visit: Dr. Vanesa Carranza Chief Complaint Patient presents with Blood Pressure Check Reason for visit: Elevated BP Reading at last visit Tana Flores has validated current medications Patient states compliant with medications as written: No BP medication taken prior to this visit? Patient not currently prescribed b/p medication Are you having any symptoms? No Current Blood Pressure:157/82 Current Heart Rate:94 Did Blood Pressure need rechecked: yes Second Blood Pressure Readin/91 Second Heart Rate: 94 Assessment/Plan: There are no diagnoses linked to this encounter. elevated Future Appointments Date Time Provider Department Center 11/04/2025 10:40 AM [facility] 05/05/2026 10:40 AM Brittnee Helm APRN - [facility] Cc'd provider blood pressure readings? Yes Blood pressure continues to be elevated would recommend starting rosuvastatin 50 mg daily and recheck in 1 week. Called patient and left vm to call our office back regarding b/p check. Corrected see TE from 05/12/25. documented in this encounter [facility] 05-03-2025 Evaluation + Plan note Associated Problem(s): Elevated BP without diagnosis of hypertension Blood pressure was initially elevated, recheck it was still up but a little better, follow-up in 1 week for blood pressure check, most likely he is going to need to start some blood pressure medication in the future. [facility] 05-03-2025 Miscellaneous Notes Associate d Problem(s): Elevated BP without diagnosis of hypertension Blood pressure was initially elevated, recheck it was still up but a little better, follow-up in 1 week for blood pressure check, most likely he is going to need to start some blood pressure medication in the future. Associated Problem(s): Cigarette smoker Discussed smoking cessation, gives no indication he is ready. Associated Problem(s): Mixed hyperlipidemia Controlled, continue rosuvastatin 40 mg daily Associated Problem(s): Ataxia We will get him into physical therapy for balance and core strengthening Associated Problem(s): Coronary artery disease involving [place] coronary artery of [place] heart without angina pectoris Stable, no recent angina, continue rosuvastatin 40 mg daily and stop smoking. documented in this encounter [facility] 05-03-2025 Evaluation + Plan note Associated Problem(s): Cigarette smoker Discussed smoking cessation, gives no indication he is ready. [facility] 05-03-2025 Evaluation + Plan note Associated Problem(s): Mixed hyperlipidemia Controlled, continue rosuvastatin 40 mg daily [facility] 05-03-2025 Evaluation + Plan note Associated Problem(s): Ataxia We will get him into physical therapy for balance and core strengthening [facility] 05-03-2025 Evaluation + Plan note Associated Problem(s): Coronary artery disease involving [place] coronary artery of [place] heart without angina pectoris Stable, no recent angina, continue rosuvastatin 40 mg daily and stop smoking. [email or web address] 05-03-2025 History of Presen t illness Narrative Patient verified by last name and date of . Images from the original note were not included. 05/03/2025 Tana Flores (: 1945) is a 79 y.o. male , Established patient, here for evaluation of the following chief complaint(s): Coronary Artery Disease, Hyperlipidemia, Medication Check (6 month), and Health Maintenance (Lung cancer screen- refuse/Rsv vaccine- not done/Flu vaccine- refuse/Covid vaccine- not done/Tdap vaccine- refuse/Pcv 20 vaccine- refuse) ASSESSMENT/PLAN: 1. Coronary artery disease involving [place] coronary artery of [place] heart without angina pectoris Assessment & Plan: Stable, no recent angina, continue rosuvastatin 40 mg daily and stop smoking. 2. Elevated BP without diagnosis of hypertension Assessment & Plan: Blood pressure was initially elevated, recheck it was still up but a little better, follow-up in 1 week for blood pressure check, most likely he is going to need to start some blood pressure medication in the future. 3. Mixed hyperlipidemia Assessment & Plan: Controlled, continue rosuvastatin 40 mg daily 4. Ataxia Assessment & Plan: We will get him into physical therapy for balance and core strengthening Orders: - External referral to Physical Therapy 5. Cigarette smoker Assessment & Plan: Discussed smoking cessation, gives no indication he is ready. 6. Refused influenza vaccine Follow up in about 6 months (around 11/01/2025). SUBJECTIVE/OBJECTIVE: ANGI Dumont comes in today for 6-month follow-up on his multiple health issues which includes coronary artery disease which is stable at this time. 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 Blood pressure is again elevated slightly will recheck Prior to discharge. Review of Systems Constitutional: Negative for activity change, appetite change, chills, fever and unexpected weight change. HENT: Negative for ear pain and sore throat. Respiratory: Negative for shortness of breath. Cardiovascular: Negative for chest pain and palpitations. Gastrointestinal: Negative for abdominal pain, blood in stool, constipation and diarrhea. Genitourinary: Negative for dysuria, frequency, genital sores, hematuria and urgency. Musculoskeletal: Negative for arthralgias and back pain. Skin: Negative. Neurological: Negative for weakness and numbness. Psychiatric/Behavioral: Negative for dysphoric mood. The patient is not nervous/anxious. Vitals: 05/03/25 1059 05/03/25 1130 BP: (!) 161/89 (!) 150/90 Pulse: 85 84 SpO2: 94% Weight: 161 lb 6.4 oz (73.2 kg) Height: 5' 3.25 (1.607 m) Physical Exam Vitals and nursing note reviewed. Constitutional: General: He is not in acute distress. Appearance: Normal appearance. HENT: Right Ear: Tympanic membrane, ear canal and external ear normal. Left Ear: Tympanic membrane, ear canal and external ear normal. Mouth/Throat: Mouth: Mucous membranes are moist. Pharynx: Oropharynx is clear. Eyes: Extraocular Movements: Extraocular movements intact. Conjunctiva/sclera: Conjunctivae normal. Pupils: Pupils are equal, round, and reactive to light. Neck: Thyroid: No thyromegaly. Vascular: No carotid bruit. Cardiovascular: Rate and Rhythm: Normal rate and regular rhythm. Heart sounds: Normal heart sounds. No murmur heard. Pulmonary: Effort: Pulmonary effort is normal. Breath sounds: Normal breath sounds. Abdominal: General: Bowel sounds are normal. Palpations: Abdomen is soft. Tenderness: There is no abdominal tenderness. Musculoskeletal: General: Normal range of motion. Cervical back: Neck supple. Lymphadenopathy: Cervical: No cervical adenopathy. Skin: General: Skin is warm and dry. Neurological: General: No focal deficit present. Mental Status: He is alert and oriented to person, place, and time. Psychiatric: Mood and Affect: Mood normal. An electronic signature was used to authenticate this note. Vanesa Carranza MD 05/03/2025 11:54 AM documented in this encounter [facility] 04-05-[address] [facility] 11-04-2024 Telephone encounter Note Form atting of this note might be different from the original. Notified, no further questions. [facility] 11-04-2024 Miscellaneous Notes Formattin g of this note might be different from the original. Notified, no further questions. Blood pressure is excellent, also rosuvastatin was sent in 4 days ago to [facility] in [place] Patient also came in today for a blood pressure check and his reading was 118/79 pulse 95. Please advise, thank you! Patient arrived for nurse visit today and was verified by name and . Supervising provider for clinic visit Dr. Carranza is currently not taking any anti- hypertensive medications Shortness of breath no Medication compliance yes B/P Reading taken automatic Home Monitoring no Patient advised if follow up is needed, outreach will occur in 48 hours Patient needs a refill of Crestor---send to [facility] [place] documented in this encounter [facility] 11-04-2024 Telephone encounter Note Form atting of this note might be different from the original. Blood pressure is excellent, also rosuvastatin was sent in 4 days ago to [facility] [place] [facility] 11-04-2024 Telephone encounter Note Form atting of this note might be different from the original. Patient also came in today for a blood pressure check and his reading was 118/79 pulse 95. Please advise, thank you! Patient arrived for nurse visit today and was verified by name and . Supervising provider for clinic visit Dr. Carranza is currently not taking any anti- hypertensive medications Shortness of breath no Medication compliance yes B/P Reading taken automatic Home Monitoring no Patient advised if follow up is needed, outreach will occur in 48 hours [facility] 11-04-2024 Telephone encounter Note Form atting of this note might be different from the original. Patient needs a refill of Crestor---send to [facility] [place] [facility] 10-27-2024 Evaluation + Plan note Associ ated Problem(s): Elevated BP without diagnosis of hypertension Blood pressure was again initially elevated, recheck was still high we will have him follow-up in 1 week for blood pressure check. [facility] 10-27-2024 Miscellaneous Notes Associate d Problem(s): Elevated BP without diagnosis of hypertension Blood pressure was again initially elevated, recheck was still high we will have him follow-up in 1 week for blood pressure check. Associated Problem(s): Cigarette smoker Discussed smoking cessation, he shows some interest in trying to quit so we discussed making it difficult to smoke by putting his cigarettes somewhere where he has to physically go and get each 1 he wants to smoke. Also to do something to help with the hand and mouth part of the addiction. Associated Problem(s): Mixed hyperlipidemia Controlled, continue rosuvastatin 40 mg daily Associated Problem(s): Coronary artery disease involving [place] coronary artery of [place] heart without angina pectoris Stable, has had no angina, continue rosuvastatin 40 mg daily documented in this encounter [facility] 10-27-2024 Evaluation + Plan note Associ ated Problem(s): Cigarette smoker Discussed smoking cessation, he shows some interest in trying to quit so we discussed making it difficult to smoke by putting his cigarettes somewhere where he has to physically go and get each 1 he wants to smoke. Also to do something to help with the hand and mouth part of the addiction. T [facility] 10-27-2024 Evaluation + Plan note Associ ated Problem(s): Mixed hyperlipidemia Controlled, continue rosuvastatin 40 mg daily [facility] 10-27-2024 Evaluation + Plan note Associ ated Problem(s): Coronary artery disease involving [place] coronary artery of [place] heart without angina pectoris Stable, has had no angina, continue rosuvastatin 40 mg daily T [facility] 10-27-2024 History of Presen t illness Narrative Patient verified by last name and date of . Images from the original note were not included. [place] [id number] [address] [facility] [address] Dept: [phone] Dept Chief Complaint: Tana Flores is an 79 y.o. male here for an annual wellness visit. Assessment/Plan : Problem List Items Addressed This Visit Cigarette smoker Discussed smoking cessation, he shows some interest in trying to quit so we discussed making it difficult to smoke by putting his cigarettes somewhere where he has to physically go and get each 1 he wants to smoke. Also to do something to help with the hand and mouth part of the addiction. Coronary artery disease involving [place] coronary artery of [place] heart without angina pectoris Stable, has had no angina, continue rosuvastatin 40 mg daily Elevated BP without diagnosis of hypertension Blood pressure was again initially elevated, recheck was still high we will have him follow-up in 1 week for blood pressure check. Mixed hyperlipidemia Controlled, continue rosuvastatin 40 mg daily Relevant Orders Lipid panel Other Visit Diagnoses Routine general medical examination at health care facility - Primary Screening for diabetes mellitus Relevant Orders Comprehensive metabolic panel I have reviewed and reconciled the medication list with the patient today. Current Outpatient Medications Medication Sig Dispense Refill coenzyme Q-10 50 MG capsule Take 50 mg by mouth daily. [place]-3 Fatty Acids (OMEGA-3 FISH OIL PO) Take by mouth. rosuvastatin (Crestor) 40 MG tablet Take 1 tablet by mouth daily. 90 tablet 1 No current facility-administered medications for this visit. Also reviewed during this visit: The following health maintenance schedule was reviewed with the patient and provided in printed form in the after visit summary: Health Maintenance Topic Date Due Lung Cancer Screening Never done RSV Immunization for Adults (1 - 1-dose 75+ series) Never done DTaP/Tdap/Td Vaccines (1 - Tdap) 05/04/2025 (Originally 1964) Pneumococcal Vaccine: 50+ Years (1 of 2 - PCV) 05/04/2025 (Originally 1965) COVID-19 Vaccine ( - 2023-25 season) 2025 (Originally 03/07/2024) Influenza Vaccine (Season Ended) 2025 Depression Screening 05/04/2025 Lipid Panel 10/26/2028 Medicare Advantage Annual Wellness Visit Completed RSV Immunization under 20 Months Aged Out HIB Vaccines Aged Out Hepatitis B Vaccines Aged Out IPV Vaccines Aged Out Hepatitis A Vaccines Aged Out Meningococcal Vaccine Aged Out Rotavirus Vaccines Aged Out HPV Vaccines Aged Out Zoster Vaccines Discontinued Hepatitis C Screening Discontinued List of current healthcare providers: Patient Care Team: Vanesa Carranza MD as PCP - General (Family Medicine) Orders Placed This Encounter Procedures Lipid panel Standing Status: Future Number of Occurrences: 1 Standing Expiration Date: 10/27/2025 Comprehensive metabolic panel Standing Status: Future Number of Occurrences: 1 Standing Expiration Date: 10/27/2025 Review of Systems Constitutional: Negative for activity change, appetite change, chills, fever and unexpected weight change. HENT: Negative for ear pain and sore throat. Respiratory: Negative for shortness of breath. Cardiovascular: Negative for chest pain and palpitations. Gastrointestinal: Negative for abdominal pain, blood in stool, constipation and diarrhea. Genitourinary: Negative for dysuria, frequency, hematuria and urgency. Musculoskeletal: Negative for arthralgias and back pain. Skin: Negative. Neurological: Negative for weakness and numbness. Psychiatric/Behavioral: Negative for dysphoric mood. The patient is not nervous/anxious. Physical Exam Vitals and nursing note reviewed. Constitutional: General: He is not in acute distress. Appearance: Normal appearance. HENT: Right Ear: Tympanic membrane, ear canal and external ear normal. Left Ear: Tympanic membrane, ear canal and external ear normal. Mouth/Throat: Mouth: Mucous membranes are moist. Pharynx: Oropharynx is clear. Eyes: Extraocular Movements: Extraocular movements intact. Conjunctiva/sclera: Conjunctivae normal. Pupils: Pupils are equal, round, and reactive to light. Neck: Thyroid: No thyromegaly. Vascular: No carotid bruit. Cardiovascular: Rate and Rhythm: Normal rate and regular rhythm. Heart sounds: Normal heart sounds. No murmur heard. Pulmonary: Effort: Pulmonary effort is normal. Breath sounds: Normal breath sounds. Abdominal: General: Bowel sounds are normal. Palpations: Abdomen is soft. Tenderness: There is no abdominal tenderness. Musculoskeletal: General: Normal range of motion. Cervical back: Neck supple. Lymphadenopathy: Cervical: No cervical adenopathy. Skin: General: Skin is warm and dry. Neurological: General: No focal deficit present. Mental Status: He is alert and oriented to person, place, and time. Psychiatric: Mood and Affect: Mood normal. Objective : BP (!) 149/82 Pulse 89 Ht 5' 3.25 (1.607 m) Wt 160 lb 9.6 oz (72.8 kg) SpO2 92% BMI 28.22 kg/m No results found. Subjective : Kevin comes in today for his annual Medicare well visit, he has a history of coronary artery disease, hyperlipidemia and he continues to smoke and we did discuss smoking cessation. Blood pressure was initially elevated, will recheck prior to discharge. Health Risk Assessment: General: General In general, how would you say your health is?: Good In the past 7 days, have you experienced any of the following: New or Increased Pain, New or Increased Fatigue, Loneliness, Social Isolation, Stress or Anger?: No Do you get the social and emotional suppport you need?: (!) No Interventions: Has no problem Health Habits/Nutrition: Health Habits / Nutrition On average, how many days per week do you engage in moderate to strenous exercise (like a brisk walk)?: (!) 0 days On average, how man minutes do you engage in exercise at this level?: (!) 0 min Have you lost any weight without trying in the past 3 months? : No Have you seen the dentist within the past year?: Yes Interventions: Hearing/ Vision: Hearing / Vision Do you or your family notice any trouble with your hearing that hasn't been managed with hearing aids?: (!) Yes Do you have difficulty driving, watching TV, or doing any of your daily activities because of your eyesight?: No Have you had an eye exam within the past year?: Yes No results found. Interventions: Safety: Safety Do you have a working smoke detector?: Yes Do you have any tripping hazards - loose or unsecured carpets or rugs?: (!) Yes Do you have any tripping hazards - clutter in doorways, halls, or stairs?: No Do you have either shower bars, grab bars, non-slip mats or non-slip surfaces in your shower or bathtub? : Yes Do all your stairways have a railing or banister? : (!) No Do you fasten your seatbelt when you are in a car?: Yes Interventions: Home safety tips provided ADL: ADL In the past 7 days, did you need help from others to perform any of the following everyday activities: Eating, dressing, grooming,bathing, toileting, or walking / balance? : No In the past 7 days, did you need help from others to take care of any of the following: laundry, housekeeping, banking / finances,shopping, telephone use, food preparation, transportation, or taking medications? : No Living Will: Living Will Do you have a living will?: No Interventions: Advance Care Planning addressed with patient today Cognitive: Fall Risk: Fall Risk One or more falls in the last year:: No Advised to use a cane or walker to get around safely:: No Feels unsteady when walking:: Yes Steadies self on furniture while walking at home:: Yes Worried about falling:: Yes Depression Screening: Over the past 2 weeks, how often have you been bothered by any of the following problems? Little interest or pleasure in doing things: Not at all Feeling down, depressed, or hopeless: Not at all Patient Health Questionnaire-2 Score: 0 Interventions: Tobacco Use: Social History Tobacco Use Smoking Status Every Day Current packs/day: 1.00 Average packs/day: 1 pack/day for 65.3 years (65.3 ttl pk-yrs) Types: Cigarettes Start date: 1958 Smokeless Tobacco Never Alcohol Use: Audit Alcohol Screening Q2: How many drinks containing alcohol do you have on a typical day when you are drinking?: Patient does not drink Social Drivers of Health: SDOH risk assessment performed and documented today by members of the health care team. A total time of 5-10 minutes was spent obtaining information from the patient and discussing options to address the patient's social risk factors and unmet needs. Social Drivers of Health with Concerns Concerns Present Tobacco Use: High Risk (10/27/2024) Physical Activity: Inactive (10/27/2023) Social Connections: Moderately Isolated (05/04/2024) Unknown Concern Alcohol Use: Unknown (10/27/2024) documented in this encounter [facility] 10-27-2024 Instructions Vanesa Carranza MD - 10/27/2024 9:30 AM EDT Personalized Preventative Plan for Tana Flores - 10/27/2024 Medicare offers a range of preventative health benefits. Some of the tests and screenings are paid in full while others may be subject to a deductible, co-insurance, and / or copay. Some of these benefits include a comprehensive review of your medical history including lifestyle, illnesses that may run in your family, and various assessments and screenings as appropriate. After reviewing your medical record and screening and assessments performed today, your provider may have ordered immunizations, labs, imaging, and / or referrals for you. A list of these orders (if applicable) as well as your Preventative Care list are included within your After Visit Summary for your review. Other Preventative Recommendations: A preventive eye exam by an magneto specialist is recommended every 1-2 years to screen for glaucoma, cataracts, macular degeneration, and other eye disorders. A preventive dental visit is recommended every 6 months. Try to get at least 150 minutes of exercise per week or 10,000 steps per day on a pedometer. You need 1200-1500mg of calcium and [id number] international units of vitamin D per day. It is possible to meet your calcium requirement with diet alone, but a vitamin D supplement is usually necessary to meet this goal. When exposed to the sun, use a sunscreen that protects against both UVA and UVB radiation with an SPF of 30 or greater. Reapply every 2-3 hours or after sweating, drying off with a towel, or swimming. Always wear a seat belt when traveling in a car. Always wear a helmet when riding a bicycle or a motorcycle documented in this encounter [facility] 05-27-2024 Telephone encounter Note Form atting of this note might be different from the original. Notified. [facility] 05-27-2024 Miscellaneous Notes Formattin g of this note might be different from the original. Notified. Blood pressure is okay, continue current medications and very strict low-sodium diet Tana came in for a BP check, reading was 139/83 pulse 84. documented in this encounter [facility] 05-27-2024 Telephone encounter Note Form atting of this note might be different from the original. Blood pressure is okay, continue current medications and very strict low-sodium diet [facility] 05-27-2024 Telephone encounter Note Form atting of this note might be different from the original. Tana came in for a BP check, reading was 139/83 pulse 84. [facility] 05-06-2024 Evaluation + Plan note Associ ated Problem(s): Cigarette smoker Recommend smoking cessation however he gives no indication is ready to quit. [facility] 05-06-2024 Miscellaneous Notes Associate d Problem(s): Cigarette smoker Recommend smoking cessation however he gives no indication is ready to quit. Associated Problem(s): Mixed hyperlipidemia Controlled, continue rosuvastatin 40 mg daily and omega-3 fish oil Associated Problem(s): Coronary artery disease involving [place] coronary artery of [place] heart without angina pectoris Stable, has had no recent angina documented in this encounter [facility] 05-06-2024 Evaluation + Plan note Associ ated Problem(s): Mixed hyperlipidemia Controlled, continue rosuvastatin 40 mg daily and omega-3 fish oil [facility] 05-06-2024 Evaluation + Plan note Associ ated Problem(s): Coronary artery disease involving [place] coronary artery of [place] heart without angina pectoris Stable, has had no recent angina [facility] 05-06-2024 History of Presen t illness Narrative Patient verified by last name and date of . Images from the original note were not included. 05/06/2024 Tana Flores (: 1945) is a 78 y.o. male , Established patient, here for evaluation of the following chief complaint(s): Coronary Artery Disease, Hyperlipidemia, Medication Check (6 month), and Health Maintenance (Shingles vaccine- never had chicken pox /Pt declined- flu vaccine, tdap vaccine,pcv 20 vaccine, covid vaccine) ASSESSMENT/PLAN: 1. Coronary artery disease involving [place] coronary artery of [place] heart without angina pectoris Assessment & Plan: Stable, has had no recent angina 2. Mixed hyperlipidemia Assessment & Plan: Controlled, continue rosuvastatin 40 mg daily and omega-3 fish oil 3. Cigarette smoker Assessment & Plan: Recommend smoking cessation however he gives no indication is ready to quit. 4. Refused influenza vaccine Follow up in about 6 months (around 11/03/2024). SUBJECTIVE/OBJECTIVE: ANGI Dumont comes in today for 6-month follow-up on his coronary artery disease and his hyperlipidemia. He also continues to smoke and he recently had a cataract surgery done that had some unfortunate incident where he had a fractured lens and he has to have that redone in the near future. Blood pressure is a little elevated initially we will recheck that prior to discharge. Review of Systems Constitutional: Negative for activity change, appetite change, chills, fever and unexpected weight change. HENT: Negative for ear pain and sore throat. Respiratory: Negative for shortness of breath. Cardiovascular: Negative for chest pain and palpitations. Gastrointestinal: Negative for abdominal pain, blood in stool, constipation and diarrhea. Genitourinary: Negative for dysuria, frequency, hematuria and urgency. Musculoskeletal: Negative for arthralgias and back pain. Skin: Negative. Neurological: Negative for weakness and numbness. Psychiatric/Behavioral: Negative for dysphoric mood. The patient is not nervous/anxious. Vitals: 05/06/24 1134 05/06/24 1151 BP: (!) 146/87 (!) 149/85 Pulse: 85 80 SpO2: 95% Weight: 161 lb 3.2 oz (73.1 kg) Height: 5' 3.25 (1.607 m) Physical Exam Vitals and nursing note reviewed. Constitutional: General: He is not in acute distress. Appearance: Normal appearance. HENT: Mouth/Throat: Mouth: Mucous membranes are moist. Pharynx: Oropharynx is clear. Cardiovascular: Rate and Rhythm: Normal rate and regular rhythm. Heart sounds: Normal heart sounds. No murmur heard. Pulmonary: Effort: Pulmonary effort is normal. Breath sounds: Normal breath sounds. Abdominal: General: Bowel sounds are normal. Palpations: Abdomen is soft. Tenderness: There is no abdominal tenderness. Musculoskeletal: General: Normal range of motion. Cervical back: Neck supple. Skin: General: Skin is warm and dry. Neurological: General: No focal deficit present. Mental Status: He is alert and oriented to person, place, and time. Psychiatric: Mood and Affect: Mood normal. An electronic signature was used to authenticate this note. Vanesa Carranza MD 05/06/2024 12:57 PM documented in this encounter [facility] 04-19-2024 Telephone encounter Note Form atting of this note might be different from the original. Prescription Request: Last medication check: 09/17/2023 Last physical exam: 10/27/2023 Next scheduled appointment: 05/06/2024 Last date of refill on this medication: 10/28/2023 [facility] 04-19-2024 Miscellaneous Notes Formattin g of this note might be different from the original. Prescription Request: Last medication check: 09/17/2023 Last physical exam: 10/27/2023 Next scheduled appointment: 05/06/2024 Last date of refill on this medication: 10/28/2023 documented in this encounter [facility] 10-27-2023 Evaluation + Plan note Associ ated Problem(s): Mixed hyperlipidemia Stable, continue rosuvastatin 40 mg daily and omega-3 fish oil [facility] 10-27-2023 Miscellaneous Notes Associate d Problem(s): Mixed hyperlipidemia Stable, continue rosuvastatin 40 mg daily and omega-3 fish oil Associated Problem(s): Coronary artery disease involving [place] coronary artery of [place] heart without angina pectoris Stable, no recent angina continue rosuvastatin and omega-3 fish oil documented in this encounter [facility] 10-27-2023 Evaluation + Plan note Associ ated Problem(s): Coronary artery disease involving [place] coronary artery of [place] heart without angina pectoris Stable, no recent angina continue rosuvastatin and omega-3 fish oil [facility] 10-27-2023 History of Presen t illness Narrative Patient verified by last name and date of . Images from the original note were not included. [address] [address] Visit Type: Medicare Annual Wellness PCP: Vanesa Carranza MD Reason for Visit: Medicare Annual Wellness Visit Subsequent, Blood Work, and Health Maintenance (Lung ct- refuse/Rsv vaccine- not done/Covid vaccine- not done) Assessment and Plan Problem List Items Addressed This Visit Coronary artery disease involving [place] coronary artery of [place] heart without angina pectoris Stable, no recent angina continue rosuvastatin and omega-3 fish oil Mixed hyperlipidemia Stable, continue rosuvastatin 40 mg daily and omega-3 fish oil Relevant Orders Lipid panel Other Visit Diagnoses Medicare annual wellness visit, subsequent - Primary Screening for diabetes mellitus Relevant Orders Comprehensive metabolic panel I have reviewed and reconciled the medication list with the patient today. Current Outpatient Medications Medication Sig Dispense Refill coenzyme Q-10 50 MG capsule Take 50 mg by mouth daily. [place]-3 Fatty Acids (OMEGA-3 FISH OIL PO) Take by mouth. rosuvastatin (Crestor) 40 MG tablet Take 1 tablet (40 mg) by mouth daily. 30 tablet 0 No current facility-administered medications for this visit. There are no discontinued medications. The following health maintenance schedule was reviewed with the patient and provided in printed form in the after visit summary: Health Maintenance Topic Date Due Depression Screening 10/25/2023 DTaP/Tdap/Td Vaccines (1 - Tdap) 01/28/2024 (Originally 1964) Pneumococcal Vaccine: 65+ Years (1 of 2 - PCV) 01/28/2024 (Originally 1952) Zoster Vaccines (1 of 2) 01/28/2024 (Originally 1996) RSV Immunization aged 60 or older (1 - 1-dose 60+ series) 10/26/2024 (Originally 2006) Lung Cancer Screening 10/26/2024 (Originally 1996) COVID-19 Vaccine ( - 2022-24 season) 2024 (Originally 03/07/2023) Influenza Vaccine (Season Ended) 2024 Lipid Panel 02/28/2028 RSV Immunization under 20 Months Aged Out HIB Vaccines Aged Out Hepatitis B Vaccines Aged Out IPV Vaccines Aged Out Hepatitis A Vaccines Aged Out Meningococcal Vaccine Aged Out Rotavirus Vaccines Aged Out HPV Vaccines Aged Out Hepatitis C Screening Discontinued Orders Placed This Encounter Procedures Lipid panel Standing Status: Future Number of Occurrences: 1 Standing Expiration Date: 10/26/2024 Comprehensive metabolic panel Standing Status: Future Number of Occurrences: 1 Standing Expiration Date: 10/26/2024 Follow up in about 6 months (around 04/27/2024). Subjective HPI Kevin comes in today for his annual Medicare well visit, he has no complaints today he is here for follow-up on his coronary artery disease which is stable he said no recent angina, his hyperlipidemia and he needs fasting blood work. List of current healthcare providers: Patient Care Team: Vanesa Carranza MD as PCP - General (Family Medicine) Health Risk Assessment: General: General In general, how would you say your health is?: Good In the past 7 days, have you experienced any of the following: New or Increased Pain, New or Increased Fatigue, Loneliness, Social Isolation, Stress or Anger?: No Do you get the social and emotional suppport you need?: Yes Health Habits/Nutrition: Health Habits / Nutrition On average, how many days per week do you engage in moderate to strenous exercise (like a brisk walk)?: (!) 0 days On average, how man minutes do you engage in exercise at this level?: (!) 0 min Have you lost any weight without trying in the past 3 months? : No Have you seen the dentist within the past year?: Yes Interventions: Hearing/ Vision: Hearing / Vision Do you or your family notice any trouble with your hearing that hasn't been managed with hearing aids?: (!) Yes Do you have difficulty driving, watching TV, or doing any of your daily activities because of your eyesight?: (!) Yes (due to cataract removal) Have you had an eye exam within the past year?: Yes No results found. Interventions: Safety: Safety Do you have a working smoke detector?: Yes Do you have any tripping hazards - loose or unsecured carpets or rugs?: (!) Yes Do you have any tripping hazards - clutter in doorways, halls, or stairs?: No Do you have either shower bars, grab bars, non-slip mats or non-slip surfaces in your shower or bathtub? : Yes Do all your stairways have a railing or banister? : Yes Do you fasten your seatbelt when you are in a car?: Yes Interventions: Home safety tips provided ADL: ADL In the past 7 days, did you need help from others to perform any of the following everyday activities: Eating, dressing, grooming,bathing, toileting, or walking / balance? : No In the past 7 days, did you need help from others to take care of any of the following: laundry, housekeeping, banking / finances,shopping, telephone use, food preparation, transportation, or taking medications? : No Living Will: Living Will Do you have a living will?: No Interventions: Advance Care Planning addressed with patient today Cognitive: Cognitive Screening: Mini-Cog Clock Drawing Test (CDT): 2 Words Recalled: 3 Total Score: 5 Total Score Interpretation: Normal Mini-Cog Fall Risk: Fall Risk One or more falls in the last year:: No Advised to use a cane or walker to get around safely:: No Feels unsteady when walking:: Yes (sometimes when get up in the morning) Steadies self on furniture while walking at home:: No Worried about falling:: No Depression Screening: Over the past 2 weeks, how often have you been bothered by any of the following problems? Little interest or pleasure in doing things: Not at all Feeling down, depressed, or hopeless: Not at all Patient Health Questionnaire-2 Score: 0 Interventions: Tobacco Use: Social History Tobacco Use Smoking Status Every Day Packs/day: 1.00 Years: 63.00 Additional pack years: 0.00 Total pack years: 63.00 Types: Cigarettes Start date: 1958 Smokeless Tobacco Never Alcohol Use: Audit Alcohol Screening Q1: How often do you have a drink containing alcohol?: 2-4 times a month Q2: How many drinks containing alcohol do you have on a typical day when you are drinking?: 1 or 2 Q3: How often do you have six or more drinks on one occasion?: Never Audit-C Score: 2 Skip to questions 9-10?: 1 Q10: Has a relative, friend, doctor, or another health professional expressed concern about your drinking or suggested you cut down?: No Review of Systems Constitutional: Negative for activity change, appetite change, chills, fever and unexpected weight change. HENT: Negative for ear pain and sore throat. Respiratory: Negative for shortness of breath. Cardiovascular: Negative for chest pain and palpitations. Gastrointestinal: Negative for abdominal pain, blood in stool, constipation and diarrhea. Genitourinary: Negative for dysuria, frequency, hematuria and urgency. Musculoskeletal: Negative for arthralgias and back pain. Skin: Negative. Neurological: Negative for weakness and numbness. Psychiatric/Behavioral: Negative for dysphoric mood. The patient is not nervous/anxious. There is no immunization history on file for this patient. No Known Allergies Outpatient Medications Prior to Visit Medication Sig Dispense Refill coenzyme Q-10 50 MG capsule Take 50 mg by mouth daily. [place]-3 Fatty Acids (OMEGA-3 FISH OIL PO) Take by mouth. rosuvastatin (Crestor) 40 MG tablet Take 1 tablet (40 mg) by mouth daily. 30 tablet 0 No facility-administered medications prior to visit. Past Medical History: Diagnosis Date Cataract Social History Socioeconomic History Marital status: Single Tobacco Use Smoking status: Every Day Packs/day: 1.00 Years: 63.00 Additional pack years: 0.00 Total pack years: 63.00 Types: Cigarettes Start date: 1958 Smokeless tobacco: Never Vaping Use Vaping Use: Never used Substance and Sexual Activity Alcohol use: Not Currently Comment: couple times per month 1-2 drinks Drug use: Never Sexual activity: Not Currently Social Determinants of Health Financial Resource Strain: Low Risk (10/27/2023) Overall Financial Resource Strain (CARDIA) Difficulty of Paying Living Expenses: Not hard at all Food Insecurity: No Food Insecurity (10/27/2023) Hunger Vital Sign Worried About Running Out of Food in the Last Year: Never true Ran Out of Food in the Last Year: Never true Transportation Needs: No Transportation Needs (10/27/2023) PRAPARE - Transportation Lack of Transportation (Medical): No Lack of Transportation (Non-Medical): No Physical Activity: Inactive (10/27/2023) Exercise Vital Sign Days of Exercise per Week: 0 days Minutes of Exercise per Session: 0 min Housing Stability: Low Risk (10/27/2023) Housing Stability Vital Sign Unable to Pay for Housing in the Last Year: No Number of Places Lived in the Last Year: 1 Unstable Housing in the Last Year: No Past Surgical History: Procedure Laterality Date CARDIAC SURGERY 1998 SKIN CANCER EXCISION Past Surgical History: Procedure Laterality Date CARDIAC SURGERY 1998 SKIN CANCER EXCISION No family history on file. Objective BP 128/79 Pulse 94 Ht 5' 3.25 (1.607 m) Wt 157 lb 12.8 oz (71.6 kg) SpO2 91% BMI 27.73 kg/m Physical Exam Vitals and nursing note reviewed. Constitutional: General: He is not in acute distress. Appearance: Normal appearance. HENT: Right Ear: Tympanic membrane, ear canal and external ear normal. Left Ear: Tympanic membrane, ear canal and external ear normal. Mouth/Throat: Mouth: Mucous membranes are moist. Pharynx: Oropharynx is clear. Eyes: Extraocular Movements: Extraocular movements intact. Conjunctiva/sclera: Conjunctivae normal. Pupils: Pupils are equal, round, and reactive to light. Neck: Thyroid: No thyromegaly. Vascular: No carotid bruit. Cardiovascular: Rate and Rhythm: Normal rate and regular rhythm. Heart sounds: Normal heart sounds. No murmur heard. Pulmonary: Effort: Pulmonary effort is normal. Breath sounds: Normal breath sounds. Abdominal: General: Bowel sounds are normal. Palpations: Abdomen is soft. Tenderness: There is no abdominal tenderness. Musculoskeletal: General: Normal range of motion. Cervical back: Neck supple. Lymphadenopathy: Cervical: No cervical adenopathy. Skin: General: Skin is warm and dry. Neurological: General: No focal deficit present. Mental Status: He is alert and oriented to person, place, and time. Psychiatric: Mood and Affect: Mood normal. Vanesa Carranza MD 10/27/2023 10:07 AM documented in this encounter [facility] 09-17-2023 Evaluation + Plan note Associ ated Problem(s): Elevated BP without diagnosis of hypertension Blood pressure is excellent today [facility] 09-17-2023 Evaluation + Plan note Associ ated Problem(s): Mixed hyperlipidemia Cholesterol is well-controlled, continue rosuvastatin 40 mg daily and co-Q10 [facility] 09-17-2023 Miscellaneous Notes Associate d Problem(s): Elevated BP without diagnosis of hypertension Blood pressure is excellent today Associated Problem(s): Mixed hyperlipidemia Cholesterol is well-controlled, continue rosuvastatin 40 mg daily and co-Q10 documented in this encounter [facility] 09-17-2023 History of Presen t illness Narrative Patient verified by last name and date of . Images from the original note were not included. 09/17/2023 Tana Flores (: 1945) is a 78 y.o. male , Established patient, here for evaluation of the following chief complaint(s): Coronary Artery Disease, Hyperlipidemia, Medication Check (6 month), and Blood Work (6 month recheck lipid) ASSESSMENT/PLAN: 1. Mixed hyperlipidemia Assessment & Plan: Cholesterol is well-controlled, continue rosuvastatin 40 mg daily and co-Q10 2. Elevated BP without diagnosis of hypertension Assessment & Plan: Blood pressure is excellent today Follow up At scheduled appointment for AWV. SUBJECTIVE/OBJECTIVE: HPI Julia comes in today for follow-up on his blood pressure, this seems to be well-controlled at this time. Also here for follow-up on his hyperlipidemia he is not due to have any lab work today. Review of Systems Constitutional: Negative for chills and fever. Respiratory: Negative for shortness of breath. Cardiovascular: Negative for chest pain and palpitations. Gastrointestinal: Negative for abdominal pain, blood in stool, constipation and diarrhea. Genitourinary: Negative for dysuria, frequency, hematuria and urgency. Vitals: 09/17/23 1059 BP: 133/80 Pulse: 87 SpO2: 93% Weight: 160 lb (72.6 kg) Height: 5' 5 (1.651 m) Physical Exam Vitals and nursing note reviewed. Constitutional: General: He is not in acute distress. Appearance: Normal appearance. HENT: Head: Normocephalic. Right Ear: Tympanic membrane, ear canal and external ear normal. Left Ear: Tympanic membrane, ear canal and external ear normal. Mouth/Throat: Mouth: Mucous membranes are moist. Pharynx: Oropharynx is clear. Eyes: Extraocular Movements: Extraocular movements intact. Pupils: Pupils are equal, round, and reactive to light. Cardiovascular: Rate and Rhythm: Normal rate and regular rhythm. Heart sounds: Normal heart sounds. Pulmonary: Effort: Pulmonary effort is normal. Breath sounds: Normal breath sounds. Abdominal: General: Bowel sounds are normal. Palpations: Abdomen is soft. Musculoskeletal: Cervical back: Neck supple. Neurological: Mental Status: He is alert. An electronic signature was used to authenticate this note. Vanesa Carranza MD 09/17/2023 1:56 PM documented in this encounter [facility] 10-24-2022 Evaluation + Plan note Associ ated Problem(s): Coronary artery disease involving [place] coronary artery of [place] heart without angina pectoris This seems to be stable he has had no recent angina [facility] 10-24-2022 Miscellaneous Notes Associate d Problem(s): Coronary artery disease involving [place] coronary artery of [place] heart without angina pectoris This seems to be stable he has had no recent angina Associated Problem(s): Elevated BP without diagnosis of hypertension Blood pressure was initially elevated, recheck was still high, will have him follow-up in 1 week for blood pressure check and treat accordingly. documented in this encounter [facility] 10-24-2022 Evaluation + Plan note Associ ated Problem(s): Elevated BP without diagnosis of hypertension Blood pressure was initially elevated, recheck was still high, will have him follow-up in 1 week for blood pressure check and treat accordingly. [facility] 10-24-2022 History of Presen t illness Narrative Images from the original note were not included. [facility] [address] [facility] [id number] Visit type: Established Patient Reason for Visit: Medicare Annual Wellness Visit Subsequent, Health Maintenance (PCV-declines/Shingrix-declines/COVID vaccines-none/TDAP-declines), Blood Work, and New Patient Assessment and Plan Problem List Items Addressed This Visit Circulatory Elevated BP without diagnosis of hypertension Blood pressure was initially elevated, recheck was still high, will have him follow-up in 1 week for blood pressure check and treat accordingly. Coronary artery disease involving [place] coronary artery of [place] heart without angina pectoris This seems to be stable he has had no recent angina Relevant Orders Lipid panel Other Visit Diagnoses Initial Medicare annual wellness visit - Primary Screening for diabetes mellitus Relevant Orders Comprehensive metabolic panel Follow up in about 3 months (around 01/23/2023) for 1 week BP check. Subjective ANGI Brown comes in today to establish as a new patient he is here for his initial Medicare annual wellness visit. He denies any complaints says he has been doing well his blood pressure is significantly elevated and he has a history of coronary artery disease and has had bypass surgery but he is always refused medication. We will get updated lab work today and treat accordingly. I have reviewed and reconciled the medication list with the patient today. No current outpatient medications on file. No current facility-administered medications for this visit. There are no discontinued medications. List of current healthcare providers: Patient Care Team: Vanesa Carranza MD as PCP - General (Family Medicine) The following health maintenance schedule was reviewed with the patient and provided in printed form in the after visit summary: Health Maintenance Topic Date Due Hepatitis B Vaccines (1 of 3 - 3-dose series) Never done Lipid Panel Never done COVID-19 Vaccine (1) Never done Pneumococcal Vaccine: 65+ Years (1 - PCV) Never done Hepatitis C Screening Never done DTaP/Tdap/Td Vaccines (1 - Tdap) Never done Zoster Vaccines (1 of 2) Never done Influenza Vaccine (Season Ended) 2023 HIB Vaccines Aged Out IPV Vaccines Aged Out Hepatitis A Vaccines Aged Out Meningococcal Vaccine Aged Out Rotavirus Vaccines Aged Out HPV Vaccines Aged Out Orders Placed This Encounter Procedures Lipid panel Standing Status: Future Number of Occurrences: 1 Standing Expiration Date: 10/25/2023 Comprehensive metabolic panel Standing Status: Future Number of Occurrences: 1 Standing Expiration Date: 10/25/2023 Health Risk Assessment: General In general, how would you say your health is?: Good In the past 7 days, have you experienced any of the following: New or Increased Pain, New or Increased Fatigue, Loneliness, Social Isolation, Stress or Anger?: No Do you get the social and emotional suppport you need?: Yes Interventions: Health Habits / Nutrition On average, how many days per week do you engage in moderate to strenous exercise (like a brisk walk)?: (!) 0 days On average, how man minutes do you engage in exercise at this level?: (!) 0 min Have you lost any weight without trying in the past 3 months? : No Have you seen the dentist within the past year?: (!) No Interventions: Inadequate physical activity: Patient is not ready to increase his / her physical activity level at this time and Dental exam overdue: Patient encouraged to make appointment with his / her dentist Hearing / Vision Do you or your family notice any trouble with your hearing that hasn't been managed with hearing aids?: (!) Yes Do you have difficulty driving, watching TV, or doing any of your daily activities because of your eyesight?: (!) Yes Have you had an eye exam within the past year?: Yes No results found. Interventions: Hearing concerns: Patient declines any further evaluation / treatment for hearing issues Safety Do you have a working smoke detector?: Yes Do you have any tripping hazards - loose or unsecured carpets or rugs?: No Do you have any tripping hazards - clutter in doorways, halls, or stairs?: No Do you have either shower bars, grab bars, non-slip mats or non-slip surfaces in your shower or bathtub? : Yes Do all your stairways have a railing or banister? : Yes Do you fasten your seatbelt when you are in a car?: Yes Interventions: ADL In the past 7 days, did you need help from others to perform any of the following everyday activities: Eating, dressing, grooming,bathing, toileting, or walking / balance? : No In the past 7 days, did you need help from others to take care of any of the following: laundry, housekeeping, banking / finances,shopping, telephone use, food preparation, transportation, or taking medications? : No Interventions: Living Will Do you have a living will?: No Interventions: Advance Care Planning addressed with patient today Cognitive: Cognitive Screening: Mini-Cog Clock Drawing Test (CDT): 2 Words Recalled: 3 Total Score: 5 Total Score Interpretation: Normal Mini-Cog Interventions: Fall Risk: Interventions: Home safety tips provided Depression Screening: Over the past 2 weeks, how often have you been bothered by any of the following problems? Little interest or pleasure in doing things: Not at all Feeling down, depressed, or hopeless: Not at all Patient Health Questionnaire-2 Score: 0 Interventions: Tobacco Use: Social History Tobacco Use Smoking Status Not on file Smokeless Tobacco Not on file Interventions: Alcohol Use: Audit Alcohol Screening Q1: How often do you have a drink containing alcohol?: 2-4 times a month Q2: How many drinks containing alcohol do you have on a typical day when you are drinking?: 1 or 2 Q3: How often do you have six or more drinks on one occasion?: Never Audit-C Score: 2 Skip to questions 9-10?: 1 Interventions: Drug Use: Drug Abuse Screening Test (DAST-10) Have you used drugs other than those required for medical reasons?: No Interventions: Review of Systems Constitutional: Negative for activity change, appetite change, chills, fever and unexpected weight change. HENT: Negative for ear pain and sore throat. Respiratory: Negative for shortness of breath. Cardiovascular: Negative for chest pain and palpitations. Gastrointestinal: Negative for abdominal pain, blood in stool, constipation and diarrhea. Genitourinary: Negative for dysuria, frequency, hematuria and urgency. Musculoskeletal: Negative for arthralgias and back pain. Skin: Negative. Neurological: Negative for weakness and numbness. Psychiatric/Behavioral: Negative for dysphoric mood. The patient is not nervous/anxious. There is no immunization history on file for this patient. No Known Allergies No outpatient medications prior to visit. No facility-administered medications prior to visit. Past Medical History: Diagnosis Date Cataract Social History Socioeconomic History Marital status: Single Past Surgical History: Procedure Laterality Date CARDIAC SURGERY 1997 SKIN CANCER EXCISION Past Surgical History: Procedure Laterality Date CARDIAC SURGERY 1997 SKIN CANCER EXCISION No family history on file. Objective BP (!) 162/96 Pulse 101 Ht 5' 5 (1.651 m) Wt 151 lb (68.5 kg) SpO2 95% BMI 25.13 kg/m Physical Exam Vitals and nursing note reviewed. Constitutional: General: He is not in acute distress. Appearance: Normal appearance. HENT: Right Ear: Tympanic membrane and external ear normal. Left Ear: Tympanic membrane, ear canal and external ear normal. Mouth/Throat: Mouth: Mucous membranes are moist. Pharynx: Oropharynx is clear. Eyes: Extraocular Movements: Extraocular movements intact. Pupils: Pupils are equal, round, and reactive to light. Neck: Vascular: No carotid bruit. Cardiovascular: Rate and Rhythm: Normal rate and regular rhythm. Heart sounds: Normal heart sounds. No murmur heard. Pulmonary: Effort: Pulmonary effort is normal. Breath sounds: Normal breath sounds. Abdominal: General: Bowel sounds are normal. Palpations: Abdomen is soft. Tenderness: There is no abdominal tenderness. Musculoskeletal: General: Normal range of motion. Cervical back: Neck supple. Lymphadenopathy: Cervical: No cervical adenopathy. Skin: General: Skin is warm and dry. Neurological: General: No focal deficit present. Mental Status: He is alert and oriented to person, place, and time. Psychiatric: Mood and Affect: Mood normal. Data Reviewed Labs: Imaging/Testing: Vanesa Carranza MD 10/24/2022 4:05 PM documented [facility] Diagnosis Initial Medicare annual wellness visit- Primary Coronary artery disease involving [place] coronary artery of [place] heart without angina pectoris Elevated BP without diagnosis of hypertension Screening for diabetes mellitus [facility] Diagnosis Mixed hyperlipidemia- Primary Elevated BP without diagnosis of hypertension [facility] Diagnosis Medicare annual wellness visit, subsequent- Primary Coronary artery disease involving [place] coronary artery of [place] heart without angina pectoris Mixed hyperlipidemia Screening for diabetes mellitus [facility] Diagnosis Initial Medicare annual wellness visit- Primary Coronary artery disease involving [place] coronary artery of [place] heart without angina pectoris Elevated BP without diagnosis of hypertension Screening for diabetes mellitus Coronary artery disease involving [place] coronary artery of [place] heart without angina pectoris- Primary Mixed hyperlipidemia Mixed hyperlipidemia- Primary Elevated BP without diagnosis of hypertension Medicare annual wellness visit, subsequent- Primary Coronary artery disease involving [place] coronary artery of [place] heart without angina pectoris Mixed hyperlipidemia Screening for diabetes mellitus Coronary artery disease involving [place] coronary artery of [place] heart without angina pectoris- Primary Mixed hyperlipidemia Cigarette smoker Tobacco use disorder Refused influenza vaccine [facility] Diagnosis Initial Medicare annual wellness visit- Primary Coronary artery disease involving [place] coronary artery of [place] heart without angina pectoris Elevated BP without diagnosis of hypertension Screening for diabetes mellitus Coronary artery disease involving [place] coronary artery of [place] heart without angina pectoris- Primary Mixed hyperlipidemia Mixed hyperlipidemia- Primary Elevated BP without diagnosis of hypertension Medicare annual wellness visit, subsequent- Primary Coronary artery disease involving [place] coronary artery of [place] heart without angina pectoris Mixed hyperlipidemia Screening for diabetes mellitus Coronary artery disease involving [place] coronary artery of [place] heart without angina pectoris- Primary Mixed hyperlipidemia Cigarette smoker Tobacco use disorder Refused influenza vaccine Routine general medical examination at health care facility- Primary Routine general medical examination at a health care facility Coronary artery disease involving [place] coronary artery of [place] heart without angina pectoris Mixed hyperlipidemia Cigarette smoker Tobacco use disorder Elevated BP without diagnosis of hypertension Screening for diabetes mellitus [facility] Diagnosis Onset Date Resolution Status Admit Date Cellulitis of left lower leg acute April 05, 2025 11:36am [place] [employer] Work Phone: Evaluation note* Diagnosis Initial Medicare annual wellness visit- Primary Coronary artery disease involving [place] coronary artery of [place] heart without angina pectoris Elevated BP without diagnosis of hypertension Screening for diabetes mellitus Coronary artery disease involving [place] coronary artery of [place] heart without angina pectoris- Primary Mixed hyperlipidemia Mixed hyperlipidemia- Primary Elevated BP without diagnosis of hypertension Medicare annual wellness visit, subsequent- Primary Coronary artery disease involving [place] coronary artery of [place] heart without angina pectoris Mixed hyperlipidemia Screening for diabetes mellitus Coronary artery disease involving [place] coronary artery of [place] heart without angina pectoris- Primary Mixed hyperlipidemia Cigarette smoker Tobacco use disorder Refused influenza vaccine Routine general medical examination at health care facility- Primary Routine general medical examination at a health care facility Coronary artery disease involving [place] coronary artery of [place] heart without angina pectoris Mixed hyperlipidemia Cigarette smoker Tobacco use disorder Elevated BP without diagnosis of hypertension Screening for diabetes mellitus Coronary artery disease involving [place] coronary artery of [place] heart without angina pectoris- Primary Elevated BP without diagnosis of hypertension Mixed hyperlipidemia Ataxia Lack of coordination Cigarette smoker Tobacco use disorder Refused influenza vaccine documented in this encounter [facility] note* Diagnosis Initial Medicare annual wellness visit- Primary Coronary artery disease involving [place] coronary artery of [place] heart without angina pectoris Elevated BP without diagnosis of hypertension Screening for diabetes mellitus Coronary artery disease involving [place] coronary artery of [place] heart without angina pectoris- Primary Mixed hyperlipidemia Mixed hyperlipidemia- Primary Elevated BP without diagnosis of hypertension Medicare annual wellness visit, subsequent- Primary Coronary artery disease involving [place] coronary artery of [place] heart without angina pectoris Mixed hyperlipidemia Screening for diabetes mellitus Coronary artery disease involving [place] coronary artery of [place] heart without angina pectoris- Primary Mixed hyperlipidemia Cigarette smoker Tobacco use disorder Refused influenza vaccine Routine general medical examination at health care facility- Primary Routine general medical examination at a [facility] care facility Coronary artery disease involving [place] coronary artery of [place] heart without angina pectoris Mixed hyperlipidemia Cigarette smoker Tobacco use disorder Elevated BP without diagnosis of hypertension Screening for diabetes mellitus Coronary artery disease involving [place] coronary artery of [place] heart without angina pectoris- Primary Elevated BP without diagnosis of hypertension Mixed hyperlipidemia Ataxia Lack of coordination Cigarette smoker Tobacco use disorder Refused influenza vaccine Elevated BP without diagnosis of hypertension- Primary documented in this encounter [facility]Evaluation note* Diagnosis Initial Medicare annual wellness visit- Primary Coronary artery disease involving [place] coronary artery of [place] heart without angina pectoris Elevated BP without diagnosis of hypertension Screening for diabetes mellitus Coronary artery disease involving [place] coronary artery of [place] heart without angina pectoris- Primary Mixed hyperlipidemia Mixed hyperlipidemia- Primary Elevated BP without diagnosis of hypertension Medicare annual wellness visit, subsequent- Primary Coronary artery disease involving [place] coronary artery of [place] heart without angina pectoris Mixed hyperlipidemia Screening for diabetes mellitus Coronary artery disease involving [place] coronary artery of [place] heart without angina pectoris- Primary Mixed hyperlipidemia Cigarette smoker Tobacco use disorder Refused influenza vaccine Routine general medical examination at health care facility- Primary Routine general medical examination at a health care facility Coronary artery disease involving [place] coronary artery of [place] heart without angina pectoris Mixed hyperlipidemia Cigarette smoker Tobacco use disorder Elevated BP without diagnosis of hypertension Screening for diabetes mellitus Coronary artery disease involving [place] coronary artery of [place] heart without angina pectoris- Primary Elevated BP without diagnosis of hypertension Mixed hyperlipidemia Ataxia Lack of coordination Cigarette smoker Tobacco use disorder Refused influenza vaccine Elevated BP without diagnosis of hypertension- Primary documented in this encounter [facility] Author Moe Braden [facility] Note Date/Time April 05, 2025 11:51am [facility] [address], [address] [place] [address] OFFICE VISIT Date of Service: 04/05/25 MR#: [id number] Acct: [id number] Name: TANA FLORES Rep #: [id number] : 1945 Provider: TANAY Swan Age/Sex: 79/M Location: [facility] [place] Status: Signed Intake Vital Signs 04/05/25 11:41 Height 5 ft 3 in Weight: 163 lb 4 oz BMI 28.9 BP 122/82 H Position Sitting Respiration 20 H Pulse 105 H Temp 98.1 F Temp Source Oral Pulse Oximetry (%) 95 Oxygen Delivery Method room air Intake Visit Reasons: L LEG WOUND Accompanied by: Self Allergies No Known Allergies Allergy (Verified 04/05/25 11:41) Medications ?Medication ?Instructions ?Recorded ?Confirmed ?Type cephalexin 500 mg capsule 500 mg PO TID #30 caps 04/0504/05/25 Rx coenzyme Q10 30 mg capsule 30 mg PO QDAY 04/05/2503/09 History omega 8-sdt-yim-fish oil 60 mg-90 1 cap PO QDAY 04/05/25 History mg-500 mg capsule (Fish Oil) rosuvastatin 40 mg tablet 40 mg PO QDAY 04/05/2504/05 History Have you fallen in the past year?: No Nurse's Note: Patient here for concerns for a infection in his wound on his left leg. Patient wound happen 3 weeks ago. Patient states he though it was getting better then Friday he started bleeding . Patient state that their is a tightness where the wound is and he has redness hasn't gone away. It looks a little swollen too. Patient states no drainage but did have watery blood. [facility] Medical History (Updated 04/05/25 @ 11:56 by Moe MARTÍNEZ, PA) Cellulitis of left lower leg Surgical History (Updated 04/05/25 @ 11:48 by Adrianna Ward MA) Hx of CABG Social History Smoking Status: Current every day smoker tobacco type: cigarettes alcohol intake: never HPI HPI Details: TANA FLORES, is a 79 M who presents to the office today for initial evaluation at the [facility] for approximately 3 weeks history of leg trauma to left anterior lower leg with a metal ladder causing an open wound and has noticed stated progressively worsening erythema, swelling, warmth and serosanguineous discharge from the same. No complaints of fever, chills, sweats, lightheadedness/dizziness, nausea/vomiting. No xfzw-pbw-xgplkmc oral medications or topical products have been tried to assist though he did recentlystart covering the open wound with Band-Aids over the last 3 to 4 days. Non-smoker. PMH NC. No other associated symptoms and no other alleviating or aggravating factors. ROS Const Constitutional: No other (As above) Exam Const General: cooperative, healthy appearing and no acute distress Orientation: alert and awake Resp Effort & Inspection: normal respiratory effort and able to speak in complete sentences Cardio Rate: regular rate Rhythm: regular rhythm Pulses: radial pulses present Skin General: no rashes or lesions noted Other: Except left anterior lower leg approximately 3 cm open L-shaped laceration with scant serosanguineous discharge and circumferential erythema, swelling, warmth of approximately 15 cm diameter to the same wound. After inspection site was recleansed and dressing applied thereafter which patient tolerated well. Neuro General: patient alert and patient awake Cognition: normal cognition Speech: speech normal Extrem General: normal to inspection Psych Appearance: grossly normal Mental Status: mental status grossly normal Mood: congruent mood Affect: normal affect Speech and Movement: speech and movement normal Attitude: cooperative Coding Level of Care Code Off vis,new,level 3 Diagnoses Cellulitis of left lower leg L03.116 Assessment and Plan Assessment and Plan (1) Cellulitis of left lower leg: Status: Acute Plan: Twice daily wound care with Epsom salt soaks, followed by bacitracin ointment and dressing as instructed today. Cephalexin as prescribed today. Supportive measures including rest, elevate, ibuprofen/acetaminophen as needed for symptomatic relief. Follow-up with PCP in 3 to 5 days should symptoms not improve, sooner should symptoms only worsen or any other concerns develop. Patient states acknowledging understanding all the above. This note was generated with [employer] dictation software. It may contain incorrectwords, spelling, and punctuation that were not noted in checking the note beforesigning. Medications: New cephalexin 500 mg PO TID 30 caps 0RF Clinical Quality Measures Falls Risk Screening/Assistive Devices Have you fallen in the past year?: No 04/05/25 1157 <Electronically signed by Moe MARTÍNEZ> Date _ Moe MARTÍNEZ Cosigner Signature: Date (if applicable) CC: ~ [facility] Work Phone: Reason for referral (narrative)No reason for referral information availableBlMoreno [facility] Work Phone: Chief Complaint and Reason for Visit Chief Complaint Admit Date L LEG WOUND April 05, 2025 11:36am Reason for Visit Admit Date Cellulitis of left lower leg March 092024 11:36am Summary Purpose Family History No Family History Records FoundNo Family History Records Found Advance Directives No Advanced Directives Records FoundNo Advanced Directives Records Found Additional Source Comments Reason for Visit (unrecogniz ed section and content) Reason Comments Medicare Annual Wellness Visit Subsequen t Health Maintenance PCV-declinesShingrix -declinesCOVID mgomtkbx-myhfLVAR-rnouvkzp Blood Work New Patient Reason Comments Coronary Artery Disease Hyperlipidemia Medication Check 6 month Blood Work 6 month recheck lipi d Reason Comments Medicare Annual Wellness Visit Subsequen t Blood Work Health Maintenance Lung ct- refuseRsv v accine- not doneCovid vaccine- not done Reason Comments Med Refill Reason Comments Coronary Artery Disease Hyperlipidemia Medication Check 6 month Health Maintenance Shingles vaccine- ne [place] had chicken pox Pt declined- flu vaccine, tdap vaccine,pcv 20 vaccine, covid vaccine Reason Onset Date Comments Blood Pressure Check 05/27/2024 Reason Comments Medicare Annual Wellness Visit Subsequen t Blood Work Health Maintenance Rsv vaccine- not don eLung cancer screening- refuse Reason Onset Date Comments Med Refill 11/04/2024 Reason Comments Coronary Artery Disease Hyperlipidemia Medication Check 6 month Health Maintenance Lung cancer screen- refuseRsv vaccine- not doneFlu vaccine- refuseCovid vaccine- not doneTdap vaccine- refusePcv 20 vaccine- refuse Reason Comments Blood Pressure Check Reason Onset Date Comments Release of Information 05/11/2025 Care Teams (unrecognized sec tion and content) 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 Relationship Specialty Start Date End [place] [address] PCP - General Family Medicine 09/06/22 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 Relationship Specialty Start Date End Date [facility]anes[facility] [place] [address] PCP - General Family Medicine 09/06/22 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 Relationship Specialty Start Date End Date Vanesa Carranza MD [address] [place], [place] [address] [address] PCP - General Family Medicine 09/06/22 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 Relationship Specialty Start Date End Date [facility]anes[facility] [place] [address] PCP - General Family Medicine 09/06/22 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 Relationship Specialty Start Date End Date Vanesa Carranza MD [address] [place], [place] [address] [address] PCP - General Family Medicine 09/06/22 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 Relationship Specialty Start Date End Date Vanesa Carranza MD [address] [place], [place] [address] [address] PCP - General Family Medicine 09/06/22 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 Relationship Specialty Start Date End Date [facility]anes[facility] [place] [address] PCP - General Family Medicine 09/06/22 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 Relationship Specialty Start Date End Date Vanesa Carranza MD [facility] [place] [address] PCP - General Family Medicine 09/06/22 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 Relationship Specialty Start Date End Date Vanes[facility] [place] [address] PCP - General Family Medicine 09/06/22 Team Status: Active Member Role/Relationship Status Dates Dr. Vanesa Carranza MD Primary care physician Active Team Status: Inactive Member Role/Relationship Status Dates Dr. Vanesa Carranza MD Primary care physician Active Start: April 05, 2025 End: April 05, 2025 Dr. Vanesa Carranza MD Referring Provider Active Start: April 05, 2025 End: April 05, 2025 Moe MARTÍNEZ, PA Attending physician Active Start: April 05, 2025 End: April 05, 2025 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 Relationship Specialty Start Date End Date Vanesa Carranza MD [facility] [place] [address] PCP - General Family Medicine 09/06/22 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 Relationship Specialty Start Date End Date Vanesa Carranza MD [facility] [place] [address] PCP - General Family Medicine 09/06/22 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 Relationship Specialty Start Date End Date Vanesa Carranza MD [facility] [place] [address] PCP - General Family Medicine 09/06/22 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 Relationship Specialty Start Date End Date Vanesa Carranza MD [address] [facility] [place] [address] PCP - General Family Medicine 09/06/22 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 Relationship Specialty Start Date End Date Vanesa Carranza MD [address] [facility] [place] [address] PCP - General Family Medicine 09/06/22 Goals (unrecognized section and content) Goals may be documented in a n alternate section (unrecognized sect ion and content) No Status Records FoundNo Status Records Found INFORMATION SOURCE (unrecogn ized section and content) DATE CREATED AUTHOR 04/10/2025 [facility] DATE CREATED AUTHOR AUTHOR'S ORGANIZ ATION 05/13/2025 [facility] FOR RECORDS PERTAINING TO PATIENTS WHO ARE OR HAVE BEEN ENROLLED IN A CHEMICAL DEPENDENCY/SUBSTANCEABUSE PROGRAM, SOME INFORMATION MAY BE OMITTED. This clinical summary was aggregated from multiple sources. Caution should be exercised in using it in the provision of clinical care. This summary normalizes information from multiple sources, and as a consequence, information in this document may materially change the coding, format and clinical context of patient data. In addition, data may be omitted in some cases. CLINICAL DECISIONS SHOULD BE BASED ON THE PRIMARY CLINICAL RECORDS. [employer] [facility]. provides no warranty or guarantee of the accuracy or completeness of information in this document.
[2025-06-16 05:53] LABS: Hematocrit 42.4 % (40-54); Hemoglobin 14.0 g/dL (13.0-16.5); Immature Granulocytes Count 0.070 X10^3/uL (0.0-0.0); Mean Corp Hgb Conc 33.0 g/dL (32-36); Mean Corpuscular Volume 89.3 fL (80-94); Mean Platelet Vol. 8.4 fl (6.2-12.0); NRBC Flagged by Analyzer 0 % (0-5); Platelet Count 350 K/mm3 (150-450); RBC Distribution Width CV 13.2 % (11.6-14.6); RBC Distribution Width SD 43.6 fl (35.1-43.9); Red Blood Count 4.75 M/mm3 (4.6-6.2); White Blood Count 10.8 K/mm3 (4.4-11.0)
--- NOTE | 2025-06-16 05:55 | MRI_ITS ---
PROCEDURE: BRAIN W/WO CONTRAST 06/16/2025 REASON FOR EXAM: METASTATIC BRAIN DISEASE W/ VASOGENIC EDEMA TECHNIQUE: Procedure Code: [id number] Modality: MR Procedure: BRAIN W/WO CONTRAST Multiplanar and multisequence images were obtained. CONTRAST: Clariscan VOLUME: 15 mL COMPARISON: CT scan done 1 day prior FINDINGS: Brain: No evidence of acute ischemia seen. Masses are present as described on prior CT. One of the index lesions abuts the dura adjacent to the splenium of the corpus callosum rather than originating from this structure. This measures 1.9 x 2.1 x 1.3 cm. There is significant surrounding vasogenic edema with some local mass effect on the atrium of the lateral ventricle. A 7 mm focus is shown in the central portion of the thalamus on the right. In the right temporal lobe near the temporal horn there is a 1.3 x 1.5 x 1.2 cm mass. This has fairly minimal edema present. Largest lesion is seen in the cerebellar hemisphere superiorly and centrally measuring 2.4 x 3.0 x 2.3 cm; it abuts the tentorium. A small focus of central necrosis is seen. There is vasogenic edema present with mass effect on the ambient cisterns, ekoz-[id number]-stnd-right. The effacement of the prepontine cistern is minimal. There is some mass effect on the 4th ventricle, but this appears less than that shown on CT. Ventricles: No gross hydrocephalus. Mild dilation favored to be age-related rather than obstructive in nature. Major Intracranial Vessels: Unremarkable. Correlate with the recent CTA. Sinuses: Small mucous retention cyst or polyp right maxillary sinus. Otherwise clear. Mastoids: Clear MRI/Brain W/WO Contrast IMPRESSION: 1. No evidence of acute ischemia or hemorrhage. 2. Masses are present. One of the index lesions thought to be in the splenium of the corpus callosum is actually abutting the tentorium cerebelli with mass effect on the splenium and shows vasogenic edema into the parietal lobe. The lesion in the right temporal horn and left superior cerebellar hemisphere are again noted. Additio juani, a new subcentimeter lesion is identified in the right thalamus. 3. Mass effect from the cerebellar lesion is present upon the ambient cisterns . Mild mass effect on the 4th ventricle. The mild dilation of the ventricles is favored to be/volume loss related rather steven n obstructive CSF physiology. Close follow-up suggested. Reading Location: [facility]
--- NOTE | 2025-06-16 06:11 | NURSING ---
0608- this RN called [facility] transfer line to check on status of transfer/ bed. Was informed by Mohit that patient was accepted for a stepdown neuro icu bed and that the bed would be discharge dependant.
[2025-06-16 06:19] LABS: AST(SGOT) 15 U/L (<=37); Alanine Aminotransfer ALT/SGPT 18 U/L (<=46); Albumin, Serum 4.0 g/dL (3.4-4.8); Alkaline Phosphatase 73 U/L (40-129); Anion Gap 12 (5-15); BUN 19 mg/dL (4-19); BUN/Creat Ratio 18.1 RATIO (10-20); Calcium,Total 9.4 mg/dL (7.6-11.0); Carbon Dioxide 22.2 mmol/L (21.0-32.0); Chloride 103 mmol/L (98-108); Estimated Creatinine Clearance 45.79 ml/min (50-250); Globulin 3.2 g/dL (2.2-4.2); Glucose 161 mg/dL (70-99); Potassium 4.4 mmol/L (3.3-5.1)
--- NOTE | 2025-06-16 07:08 | PCM.PN.HOSP ---
Reason for Visit Chief Complaint: Weakness, debility, off balance, weight loss. Subjective Subjective Feeling well. No new events. Objective Data Objective Data Vital Signs: Vital Signs Temp Pulse Resp BP Pulse Ox O2 Del Method O2 Flow Rate 36.5 C L 76 17 103/61 96 Nasal Cannula 2 06/16/25 05:00 06/16/25 07:00 06/16/25 07:00 06/16/25 07:00 06/16/25 07:07 06/16/25 07:07 06/16/25 07:07 Oxygen Flow Rate (L/min) 2 Oxygen Delivery Method Nasal Cannula Weight: 64.7 kg Body Mass Index (BMI) 25.2 Intake & Output: Intake and Output for Last 24 Hours 06/14/25 06/15/25 06/16/25 23:59 23:59 23:59 Intake Total 100 / 100 Balance 100 / 100 Lab / Micro Data 06/16/25 05:45 06/16/25 05:45 Labs: Laboratory Results - last 24 hr 06/15/25 12:55: WBC 11.9 H, RBC 4.58 L, Hgb 13.6, Hct 41.7, MCV 91.0, MCH 29.7, MCHC 32.6, RDW Std Deviation 45.2 H, RDW Coeff of [place]nn 13.4, Plt Count 355, MPV 8.9, Immature Gran % (Auto) 0.500, Neut % (Auto) 71.0 H, Lymph % (Auto) 12.2 L, [place] % (Auto) 15.2 H, Eos % (Auto) 0.8, Baso % (Auto) 0.3, Absolute Neuts (auto) 8.4 H, Absolute Lymphs (auto) 1.45, Nucleated RBC % 0, Differential Comment SCANNED, Platelet Estimate ADEQUATE, PT 12.9, INR 1.0, APTT 27.8, Sodium 137, Potassium 4.7, Chloride 101, Carbon Dioxide 24.5, Anion Gap 11, BUN 16, Creatinine 0.95, Estim Creat Clear Calc 57.78, Est GFR (MDRD) Non-Af 82, BUN/Creatinine Ratio 16.9, Glucose 100 H, Calcium 9.5 06/16/25 05:45: WBC 10.8, RBC 4.75, Hgb 14.0, Hct 42.4, MCV 89.3, MCH 29.5, MCHC 33.0, RDW Std Deviation 43.6, RDW Coeff of [place]nn 13.2, Plt Count 350, MPV 8.4, Immature Gran % (Auto) 0.600, Neut % (Auto) 92.9 H, Lymph % (Auto) 5.7 L, [place] % (Auto) 0.6, Eos % (Auto) 0.1, Baso % (Auto) 0.1, Absolute Neuts (auto) 10.0 H, Absolute Lymphs (auto) 0.62 L, Nucleated RBC % 0, Sodium 137, Potassium 4.4, Chloride 103, Carbon Dioxide 22.2, Anion Gap 12, BUN 19, Creatinine 1.07, Estim Creat Clear Calc 45.79 L, Est GFR (MDRD) Non-Af 71, BUN/Creatinine Ratio 18.1, Glucose 161 H, Calcium 9.4, Total Bilirubin 0.22, AST 15, ALT 18, Alkaline Phosphatase 73, Total Protein 7.1, Albumin 4.0, Globulin 3.2, Albumin/Globulin Ratio 1.2 06/16/25 12:55: Phosphorus 2.8, Magnesium 2.3 H Radiography Diagnostic Testing: Radiology Impression Brain CT 06/15/25 13:26 IMPRESSION: 1. No evidence of acute ischemia or hemorrhage. 2. Multiple enhancing masses are shown worrisome for metastatic disease. One in the left posterior corpus callosum at the splenium, another at the right temporal horn, and a third in the left central cerebellum. Associated vasogenic edema is present primarily from the lesion in the cerebellum with effacement of the ambient cisterns, and prepontine cistern. Mass effect on the 4th ventricle. Mild obstructive CSF physiology versus volume loss related to age. 3. No large vessel occlusion. Despite very mild, partial effacement of the prepontine cistern, the basilar artery is widely patent. Stroke Alert: As above The critical findings in the findings and impression above were relayed directly by me by telephone to Conde on 06/15/2025 at 3:02 pm EST with readback verification. Reading Location: [facility] Head/Neck CTA 06/15/25 13:27 IMPRESSION: No significant vascular abnormality is seen. 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 Red Alert: Brain mets The critical findings in the findings and impression above were relayed directly by me by telephone to Mario Musa on 06/15/2025 at 2:54 pm with readback verification. Reading Location: [facility] 06/15/25 13:53 IMPRESSION: Coronary artery calcification (CAC) is is present 3.4 cm 2.7 cm irregular lobulated mass in the posterior aspect of the right upper lobe abutting the right minor fissure. A neoplastic process should be ruled out. Increased markings at the lung bases suggestive of either linear atelectasis and/or scarring. Reading Location: [facility] Physical Exam Const alert and no apparent distress HEENT head/scalp atraumatic and moist oral mucous membranes Resp normal respiratory effort, no retractions, no use of accessory muscles and clear to auscultation bilaterally Cardio regular rate, regular rhythm, S1 normal heart sound and S2 normal heart sound GI normal to inspection, nondistended, normoactive bowel sounds, soft to palpation, non-tender and non-distended Extremity normal to inspection Neuro oriented x3, CN's II-XII intact bilaterally and moves all extremities Neuro Narrative: Ataxia in the left upper and left lower extremity. 4-5 strength in the left lower extremity. 5-5 strength in the bilateral upper and right lower extremity. 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 Associated vasogenic edema is present primarily from the lesion in the cerebellum with effacement of the ambient cisterns, and prepontine cistern. Mass effect on the 4th ventricle. Mild obstructive CSF physiology versus volume loss related to age. Patient has been accepted by the [facility]. Currently awaiting on bed availability. In the interim, given the pending transfer, patient was admitted to the ICU and started on IV dexamethasone and levetiracetam. Concerning for lung cancer as primary as chest CT with right lung mass Patient with ataxia in the preceding months. I suspect the brain metastasis may be the primary cause of this. I reached out to [facility] and patient was accepted by the neurosurgeon. I was on the phone with the neurosurgeon and the bed coordinator. Though the neurosurgeon excepted, there were no readily available beds available. The neurosurgeon advised sending the patient to the emergency room. I clarified that that would not be an kind of violation. They told me that that would not be not be a violation as the service requested, neurosurgery, is not available at [facility]. I spoke with the emergency room physician, Dr. Salgado, he agreed to accept the patient and patient will be transferred to [facility] emergency room in stable condition. Chronic conditions: Chronic Kidney Disease Stage II per GFR trending but no comparison thus uncertain: Admission BUN/Cr 16/0.95, GFR 82, baseline renal function unknown but suspect likely this is baseline, repeat BMP in AM. CAD: Status post CABG x 2, not taking any any antiplatelet therapy even including aspirin, not on a beta-srikanth NIKOLAS inhibitor/ARB, reportedly taking statin therapy which we continued. Given current presentation will defer aspirin therapy, continue statin, given normalized blood pressure currently will avoid beta-srikanth/NIKOLAS inhibitor however if appropriate will add. Hyperlipidemia: Will continue patient home statin therapy. Tobacco Abuse: Encouraged cessation, inpatient consultation per RT, NR if desired. DVT prophylaxis: SCDs, defer any chemoprophylaxis concept given findings on CT imaging of the brain.
--- NOTE | 2025-06-16 07:41 | CON.PCM.CC_ITS ---
Assessment & Plan Assessment/Plan (1) Lung cancer metastatic to brain: PLAN: Plan RECOMMENDATIONS: 1. Supplemental oxygen, if needed, to maintain saturations at or above 90%. 2. Continue Decadron and Keppra. 3. As needed bronchodilator therapy. 4. Encourage incentive spirometer use and mobilize patient as tolerated. 5. The patient is awaiting transfer to [facility] for further evaluation and management. 6. Given the patient's CODE STATUS, he can be downgraded from ICU to stepdown status. IMPRESSIONS: 1. Newly identified right upper lobe lung mass with concern for metastatic disease to the brain The patient initially presented to the hospital with ataxia, weakness and weight loss over the last several months. He does have a tobacco abuse history with CT imaging demonstrating a right upper lobe lung mass with evidence of intracranial metastatic disease and vasogenic edema. Accordingly, the patient has been initiated on seizure prophylaxis and Decadron. He is awaiting transfer to [facility] for further workup and intervention. Aside from continuing the aforementioned, I have no new additional recommendations. 2. History of tobacco dependency/coronary artery disease status post CABG/hypertension/hyperlipidemia Complicates care, management, recovery and prognosis. Continue supportive measures as noted above. CODE STATUS: DNR CCA without intubation This note was generated with [employer] dictation software. It may contain incorrect words, spelling, and punctuation that were not noted in checking the note before signing. HPI Consult Data Date of Consult: 06/16/25 HPI Narrative Reason for Consultation: Lung mass HPI Narrative: The patient is a 79-year-old male, with a history as outlined below, who presented to the emergency department on June 15 with progressive ataxia, generalized weakness and unintentional weight loss since March. The patient has a known history of coronary artery disease status post CABG, hypertension and chronic tobacco dependency. On presentation to the emergency department, the patient was noted to be afebrile and hemodynamically stable. Laboratory evaluation revealed a white blood cell count of 11,000. Hemoglobin and platelet count were stable. Coagulation profile was unremarkable. Chemistry profile was unremarkable. CT imaging of the head, including CTA head and neck demonstrated multiple enhancing masses concerning for metastatic disease with associated vasogenic edema and mass effect on the fourth ventricle. CT chest subsequently demonstrated a large mass in the posterior aspect of the right upper lobe measuring approximately 3.4 x 2.7 cm. In light of the findings noted on CT imaging of the head, the case was discussed with [facility] for potential transfer. Although the patient was accepted and transferred, there was no bed available. It was suggested that the patient be placed on Decadron and Keppra for seizure prophylaxis. He was subsequently admitted to the medical intensive care unit with CODE STATUS confirmed to be DNR CCA without intubation. This morning, the patient remains clinically stable. He is still awaiting transfer to [facility]. [facility] Medical History CKD (chronic kidney disease), stage II Tobacco use HLD (hyperlipidemia) HTN (hypertension) CAD (coronary artery disease) Home Medications ?Medication ?Instructions ?Recorded ?Last Taken ?Type rosuvastatin 40 mg tablet 40 mg PO QDAY 04/05/25 Unkno wn History Allergy/AdvReac Type Severity Reaction Status Date / Time No Known Allergies Allergy Verified 06/15/25 12:45 Family History Mother Alzheimer's disease Father Kidney disease Surgical History Hx of CABG Social History household members: none Smoking Status: Current every day smoker tobacco type: cigarettes Smoking packs per day: 0.75 Smoking cigarettes per day: 15.0 alcohol intake: never substance use type: does not use ROS ROS Narrative 10 systems were reviewed with pertinent positives as noted in the HPI above. Physical Exam Const alert, oriented x3 and no apparent distress General Appearance: cooperative HEENT normocephalic and head/scalp atraumatic Eyes PERRL, EOMs intact bilaterally and conjunctivae normal Neck supple General: trachea midline Chest inspection of chest normal Resp normal respiratory effort Auscultation: diminished lung sounds; Negative for rales, rhonchi or wheezes Cardio regular rate and regular rhythm GI normal to inspection, nondistended, normoactive bowel sounds Extremity no clubbing, cyanosis or edema Skin no rashes or lesions noted Neuro CN's II-XII intact bilaterally, moves all extremities and no focal motor deficits Psych cooperative and affect normal Lab / Micro Data 06/16/25 05:45 06/16/25 05:45 Labs: Laboratory Results - last 24 hr 06/15/25 12:55: WBC 11.9 H, RBC 4.58 L, Hgb 13.6, Hct 41.7, MCV 91.0, MCH 29.7, MCHC 32.6, RDW Std Deviation 45.2 H, RDW Coeff of Brooklynn 13.4, Plt Count 355, MPV 8.9, Immature Gran % (Auto) 0.500, Neut % (Auto) 71.0 H, Lymph % (Auto) 12.2 L, [place] % (Auto) 15.2 H, Eos % (Auto) 0.8, Baso % (Auto) 0.3, Absolute Neuts (auto) 8.4 H, Absolute Lymphs (auto) 1.45, Nucleated RBC % 0, Differential Comment SCANNED, Platelet Estimate ADEQUATE, PT 12.9, INR 1.0, APTT 27.8, Sodium 137, Potassium 4.7, Chloride 101, Carbon Dioxide 24.5, Anion Gap 11, BUN 16, Creatinine 0.95, Estim Creat Clear Calc 57.78, Est GFR (MDRD) Non-Af 82, BUN/Creatinine Ratio 16.9, Glucose 100 H, Calcium 9.5 06/16/25 05:45: WBC 10.8, RBC 4.75, Hgb 14.0, Hct 42.4, MCV 89.3, MCH 29.5, MCHC 33.0, RDW Std Deviation 43.6, RDW Coeff of Brooklynn 13.2, Plt Count 350, MPV 8.4, Immature Gran % (Auto) 0.600, Neut % (Auto) 92.9 H, Lymph % (Auto) 5.7 L, [place] % (Auto) 0.6, Eos % (Auto) 0.1, Baso % (Auto) 0.1, Absolute Neuts (auto) 10.0 H, A bsolute Lymphs (auto) 0.62 L, Nucleated RBC % 0, Sodium 137, Potassium 4.4, Chloride 103, Carbon Dioxide 22.2, Anion Gap 12, BUN 19, Creatinine 1.07, Estim Creat Clear Calc 45.79 L, Est GFR (MDRD) Non-Af 71, BUN/Creatinine Ratio 18.1, G lucose 161 H, Calcium 9.4, Total Bilirubin 0.22, AST 15, ALT 18, Alkaline Phosphatase 73, Total Protein 7.1, Albumin 4.0, Globulin 3.2, Albumin/Globulin Ratio 1.2 06/16/25 12:55: Phosphorus 2.8, Magnesium 2.3 H Imaging Radiology Impression Brain CT 06/15/25 13:26 IMPRESSION: 1. No evidence of acute ischemia or hemorrhage. 2. Multiple enhancing masses are shown worrisome for metastatic disease. One in the left posterior corpus callosum at the splenium, another at the right temporal horn, and a third in the left central cerebellum. Associated vasogenic edema is present primarily from the lesion in the cerebellum with effacement of the ambient cisterns, and prepontine cistern. Mass effect on the 4th ventricle. Mild obstructive CSF physiology versus volume loss related to age. 3. No large vessel occlusion. Despite very mild, partial effacement of the prepontine cistern, the basilar artery is widely patent. Stroke Alert: As above The critical findings in the findings and impression above were relayed directly by me by telephone to Elton on 06/15/2025 at 3:02 pm EST with readback verification. Reading Location: [id number] Head/Neck CTA 06/15/25 13:27 IMPRESSION: No significant vascular abnormality is seen. 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 Red Alert: Brain mets The critical findings in the findings and impression above were relayed directly by me by telephone to Mario Musa on 06/15/2025 at 2:54 pm with readback verification. Reading Location: [facility] 06/15/25 13:53 IMPRESSION: Coronary artery calcification (CAC) is is present 3.4 cm 2.7 cm irregular lobulated mass in the posterior aspect of the right upper lobe abutting the right minor fissure. A neoplastic process should be ruled out. Increased markings at the lung bases suggestive of either linear atelectasis and/or scarring. Reading Location: [facility] Charges/Coding Visit Charges Inpatient E&M: 56335 Init Hosp L2
--- NOTE | 2025-06-16 09:27 | NURSING ---
[facility] transfer line called for update. Per transfer line, patient is accepted as a Neuro-stepdown patient but there is no bed availability today.
--- NOTE | 2025-06-16 10:20 | NURSING ---
Patient left unit for MRI
--- NOTE | 2025-06-16 11:08 | NURSING ---
Per MD request, [facility]
--- NOTE | 2025-06-16 11:15 | NURSING ---
Patient returned to unit from MRI
--- NOTE | 2025-06-16 11:20 | CASEMGMT ---
LEATHA CM notified Pt will be transferring to tertiary facility.
--- NOTE | 2025-06-16 11:21 | NEURO.CONS ---
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 Plan: - continue Keppra - continue decadron Will monitor peripherally for seizures or any worsening until patient can be transferred to site with additional resources. I personally attended this patient and spent a total time of 45minutes evaluating this patient including clinical assessment, review of chart, medical history imaging, and determining appropriate treatment and workup. HPI Consult Data Date of Consult: 06/16/25 HPI Narrative HPI Narrative: The patient is a 79 y/o M w/ PMHx: HTN, HLD, CAD s/p CABG x 2, Tobacco use who presents to the [facility] ED on 06/15/2025 with history of persistent history of the last several months in March worsening generalized weakness, possibly weight loss although uncertain per patient report but potentially decreased appetite with sensation of being off balance and difficulty walking in addition to recent history of intermittent loose stools prompting patient to present for evaluation. He denies any night sweats or fevers or any marked productive cough. He again reports potentially weight loss but he is uncertain. He does note generalized fatigue and declining status over the last several months. CT brain/CTA head and neck with no acute ischemia or hemorrhage however multiple enhancing masses concerning for metastatic disease, noted 1 in the left posterior corpus callosum at the splenium, another at the right temporal horn, third at the left central cerebellum with associated vasogenic edema primarily from the lesion in the cerebellum with effacement of the ambient cisterns and prepontine cistern, mass effect on the fourth ventricle with mild obstructive CFS physiology versus volume loss related to age, no evidence of any large vessel occlusion CT chest with contrast with 3.4 cm x 2.7 cm irregular lobulated mass in the posterior aspect of the right upper lobe abutting the right minor fissure with increased markings at the lung bases suggestive of atelectasis and/or scarring. ED physician discussed case at length with [facility] and patient was accepted by Dr. Blanton as a level 1 with plan for transition once became available however unfortunately there was a several hour delay prompting discussion of case with hospitalist service and given rediscussion with [facility] noted likely bed not available until later in the day 06/16/2025 requested that ED physician administer Decadron dose as well as loaded with Keppra. Neurologic History Denies a history of headache. This is a new diagnosis of cancer for patient. He currently has family in [facility]. Initially came to the hospital because of difficulty walking. Was just having general weakness but slightly worse on the L side. No falls at home but has been hanging on to the furniture. Has had more difficulty coordinating his hands for certain tasks (difficulty using the phone, refilling his tire). Symptoms started getting worse over the last several weeks. No episodes of passing out, but family has asked him if he has had a seizure but he cannot identify why that was brought up. Endorses some memory issues - details of names. Exam: -? General: Laying comfortably in bed; in no acute distress. -? HENT: Normal oropharynx and mucosa. Normal external appearance of ears and nose. Exophthalmos. -? Neck: Supple, no pain or tenderness -? CV:? No peripheral edema. -? Pulmonary:? Normal respiratory effort. -? Ext: No cyanosis, edema, or deformity -? Skin: No rash. Normal palpation of skin.? -? Musculoskeletal: full range of motion; no joint tenderness. Normal digits and nails by inspection. No clubbing. -? NEURO: -? Mental Status: The patient was alert and oriented to time (initially said July but corrected to Dec), place, and person. Normal recent/remote memory, and general fund of knowledge. There is delayed reactivity and poor concentration -? Language: speech is clear.? Naming, repetition, fluency, and comprehension intact. -? Cranial Nerves: R pupil 2mm sluggish, L pupil 3mm brisk. EOMI, visual crandall full, no facial asymmetry, facial sensation intact, hearing intact, tongue with slight R deviation -? Motor: normal bulk, tone, and strength throughout. No pronator drift or satelliting. Upper antigravity b/l; RLE with slight drift -? Detailed strength exam as performed by the nurse/TYRA and witnessed by the physician: R L SA 5 5 EE EF WE WF Social Media Campaign Manager 5 5- HF KE KF 5 4 DF 5 5- PF -? Tone: is normal and bulk is normal -? Sensation- Intact to light touch bilaterally -? Coordination: No dysmetria on [id number], finger follow finger or [id number]. -? Gait- deferred [facility] Medical History CKD (chronic kidney disease), stage II Tobacco use HLD (hyperlipidemia) HTN (hypertension) CAD (coronary artery disease) Home Medications ?Medication ?Instructions ?Recorded ?Last Taken ?Type rosuvastatin 40 mg tablet 40 mg PO QDAY 04/05/25 Unknown History Allergy/AdvReac Type Severity Reaction Status Date / Time No Known Allergies Allergy Verified 06/15/25 12:45 Family History Mother Alzheimer's disease Father Kidney disease Surgical History Hx of CABG Social History household members: none Smoking Status: Current every day smoker tobacco type: cigarettes alcohol intake: never substance use type: does not use Vital Signs Vital Signs Vital Signs: 06/15/25 12:45 06/15/25 13:30 06/15/25 13:45 Temperature 98.7 F Temperature Source Oral Pulse Rate 96 97 94 Pulse Strength Respiratory Rate 20 H 25 H 21 H Respiratory Effort Respiratory Depth Respiratory Pattern Blood Pressure 163/94 H 145/94 H 141/92 H Blood Pressure Mean 117 107 107 Blood Pressure Source Blood Pressure Position Blood Pressure Location Pulse Ox 96 95 95 Oxygen Delivery Method Oxygen Flow Rate (L/min) 06/15/25 14:00 06/15/25 15:00 06/15/25 16:11 Temperature Temperature Source Pulse Rate 89 94 95 Pulse Strength Respiratory Rate 16 25 H 25 H Respiratory Effort Respiratory Depth Respiratory Pattern Blood Pressure 153/97 H 146/80 H 167/99 H Blood Pressure Mean 115 102 121 Blood Pressure Source Blood Pressure Position Blood Pressure Location Pulse Ox 97 91 95 Oxygen Delivery Method Oxygen Flow Rate (L/min) 06/15/25 17:25 06/15/25 18:15 06/15/25 19:28 Temperature Temperature Source Pulse Rate 94 92 Pulse Strength Respiratory Rate 23 H 18 Respiratory Effort Respiratory Depth Respiratory Pattern Blood Pressure 151/100 H 155/84 H 141/76 H Blood Pressure Mean 117 107 97 Blood Pressure Source Blood Pressure Position Blood Pressure Location Pulse Ox 93 94 Oxygen Delivery Method Oxygen Flow Rate (L/min) 06/15/25 20:40 06/15/25 22:00 06/16/25 00:04 Temperature Temperature Source Pulse Rate 91 87 Pulse Strength Respiratory Rate 24 H 19 H Respiratory Effort Respiratory Depth Respiratory Pattern Blood Pressure 108/58 L 117/64 121/74 H Blood Pressure Mean 74 81 89 Blood Pressure Source Blood Pressure Position Blood Pressure Location Pulse Ox 98 94 Oxygen Delivery Method Oxygen Flow Rate (L/min) 06/16/25 00:46 06/16/25 01:31 06/16/25 02:00 Temperature 98.1 F 97.8 F Temperature Source Oral Pulse Rate 87 96 89 Pulse Strength Respiratory Rate 19 H 22 H 16 Respiratory Effort Respiratory Depth Respiratory Pattern Blood Pressure 121/74 H 129/71 H 127/73 H Blood Pressure Mean 89 90 91 Blood Pressure Source Monitor Monitor Blood Pressure Position Semi-Fowlers Semi-Fowlers Blood Pressure Location Left Arm Left Arm Pulse Ox 94 92 92 Oxygen Delivery Method Nasal Cannula Nasal Cannula Oxygen Flow Rate (L/min) 2 2 06/16/25 02:31 06/16/25 02:51 06/16/25 03:00 Temperature Temperature Source Pulse Rate 76 Pulse Strength Respiratory Rate 18 Respiratory Effort Normal Non-Labored Respiratory Depth Normal Respiratory Pattern Tachypnea Blood Pressure 114/74 Blood Pressure Mean 87 Blood Pressure Source Monitor Blood Pressure Position Semi-Fowlers Blood Pressure Location Left Arm Pulse Ox 96 94 Oxygen Delivery Method Nasal Cannula Nasal Cannula Nasal Cannula Oxygen Flow Rate (L/min) 1 2 2 06/16/25 03:49 06/16/25 04:00 06/16/25 04:00 Temperature Temperature Source Pulse Rate 71 71 Pulse Strength Respiratory Rate 18 Respiratory Effort Normal Non-Labored Respiratory Depth Normal Respiratory Pattern Tachypnea Blood Pressure 111/69 Blood Pressure Mean 83 Blood Pressure Source Monitor Blood Pressure Position Semi-Fowlers Blood Pressure Location Left Arm Pulse Ox 94 Oxygen Delivery Method Nasal Cannula Nasal Cannula Oxygen Flow Rate (L/min) 2 2 06/16/25 05:00 06/16/25 06:00 06/16/25 07:00 Temperature 97.7 F L Temperature Source Temporal Pulse Rate 76 80 76 Pulse Strength Respiratory Rate 17 17 17 Respiratory Effort Respiratory Depth Respiratory Pattern Blood Pressure 88/62 L 121/83 H 103/61 Blood Pressure Mean 70 95 75 Blood Pressure Source Monitor Monitor Monitor Blood Pressure Position Semi-Fowlers Semi-Fowlers Semi-Fowlers Blood Pressure Location Left Arm Left Arm Left Arm Pulse Ox 91 91 96 Oxygen Delivery Method Nasal Cannula Nasal Cannula Nasal Cannula Oxygen Flow Rate (L/min) 2 2 2 06/16/25 07:07 06/16/25 08:00 06/16/25 08:00 Temperature 98.2 F Temperature Source Temporal Pulse Rate 85 85 Pulse Strength Respiratory Rate 10 L Respiratory Effort Respiratory Depth Respiratory Pattern Blood Pressure 126/68 H Blood Pressure Mean 87 Blood Pressure Source Monitor Blood Pressure Position Semi-Fowlers Blood Pressure Location Left Arm Pulse Ox 96 97 Oxygen Delivery Method Nasal Cannula Nasal Cannula Oxygen Flow Rate (L/min) 2 2 06/16/25 08:00 06/16/25 09:00 06/16/25 10:00 Temperature Temperature Source Pulse Rate 92 Pulse Strength Normal (2+) Respiratory Rate 21 H Respiratory Effort Normal Non-Labored Respiratory Depth Normal Respiratory Pattern Normal Blood Pressure 122/69 H Blood Pressure Mean 86 Blood Pressure Source Monitor Blood Pressure Position Semi-Fowlers Blood Pressure Location Left Arm Pulse Ox 92 Oxygen Delivery Method Nasal Cannula Nasal Cannula Oxygen Flow Rate (L/min) 2 4 06/16/25 11:16 Temperature 98.7 F Temperature Source Temporal Pulse Rate 84 Pulse Strength Respiratory Rate 23 H Respiratory Effort Respiratory Depth Respiratory Pattern Blood Pressure 136/72 H Blood Pressure Mean 93 Blood Pressure Source Monitor Blood Pressure Position Semi-Fowlers Blood Pressure Location Left Arm Pulse Ox 92 Oxygen Delivery Method Nasal Cannula Oxygen Flow Rate (L/min) 4 Weight Weight: 64.7 kg Body Mass Index (BMI) 25.2 EEG Results Procedure Details EEG Procedure Details: TANA NICOLE is a 79 year old M with a past medical history of , who presents for evaluation of Electroencephalogram on DATE at TIME Lab / Micro Data 06/16/25 05:45 06/16/25 05:45 Labs: Laboratory Results - last 24 hr 06/15/25 12:55: WBC 11.9 H, RBC 4.58 L, Hgb 13.6, Hct 41.7, MCV 91.0, MCH 29.7, MCHC 32.6, RDW Std Deviation 45.2 H, RDW Coeff of Brooklynn 13.4, Plt Count 355, MPV 8.9, Immature Gran % (Auto) 0.500, Neut % (Auto) 71.0 H, Lymph % (Auto) 12.2 L, Ida % (Auto) 15.2 H, Eos % (Auto) 0.8, Baso % (Auto) 0.3, Absolute Neuts (auto) 8.4 H, Absolute Lymphs (auto) 1.45, Nucleated RBC % 0, Differential Comment SCANNED, Platelet Estimate ADEQUATE, PT 12.9, INR 1.0, APTT 27.8, Sodium 137, Potassium 4.7, Chloride 101, Carbon Dioxide 24.5, Anion Gap 11, BUN 16, Creatinine 0.95, Estim Creat Clear Calc 57.78, Est GFR (MDRD) Non-Af 82, BUN/Creatinine Ratio 16.9, Glucose 100 H, Calcium 9.5 06/16/25 05:45: WBC 10.8, RBC 4.75, Hgb 14.0, Hct 42.4, MCV 89.3, MCH 29.5, MCHC 33.0, RDW Std Deviation 43.6, RDW Coeff of [place]nn 13.2, Plt Count 350, MPV 8.4, Immature Gran % (Auto) 0.600, Neut % (Auto) 92.9 H, Lymph % (Auto) 5.7 L, Ida % (Auto) 0.6, Eos % (Auto) 0.1, Baso % (Auto) 0.1, Absolute Neuts (auto) 10.0 H, Absolute Lymphs (auto) 0.62 L, Nucleated RBC % 0, Sodium 137, Potassium 4.4, Chloride 103, Carbon Dioxide 22.2, Anion Gap 12, BUN 19, Creatinine 1.07, Estim Creat Clear Calc 45.79 L, Est GFR (MDRD) Non-Af 71, BUN/Creatinine Ratio 18.1, Glucose 161 H, Calcium 9.4, Total Bilirubin 0.22, AST 15, ALT 18, Alkaline Phosphatase 73, Total Protein 7.1, Albumin 4.0, Globulin 3.2, Albumin/Globulin Ratio 1.2 06/16/25 12:55: Phosphorus 2.8, Magnesium 2.3 H Imaging Radiology Impression Brain CT 06/15/25 13:26 IMPRESSION: 1. No evidence of acute ischemia or hemorrhage. 2. Multiple enhancing masses are shown worrisome for metastatic disease. One in the left posterior corpus callosum at the splenium, another at the right temporal horn, and a third in the left central cerebellum. Associated vasogenic edema is present primarily from the lesion in the cerebellum with effacement of the ambient cisterns, and prepontine cistern. Mass effect on the 4th ventricle. Mild obstructive CSF physiology versus volume loss related to age. 3. No large vessel occlusion. Despite very mild, partial effacement of the prepontine cistern, the basilar artery is widely patent. Stroke Alert: As above The critical findings in the findings and impression above were relayed directly by me by telephone to Elton on 06/15/2025 at 3:02 pm EST with readback verification. Reading Location: [facility] Head/Neck CTA 06/15/25 13:27 IMPRESSION: No significant vascular abnormality is seen. 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 Red Alert: Brain mets The critical findings in the findings and impression above were relayed directly by me by telephone to Mario Musa on 06/15/2025 at 2:54 pm with readback verification. Reading Location: [facility] 06/15/25 13:53 IMPRESSION: Coronary artery calcification (CAC) is is present 3.4 cm 2.7 cm irregular lobulated mass in the posterior aspect of the right upper lobe abutting the right minor fissure. A neoplastic process should be ruled out. Increased markings at the lung bases suggestive of either linear atelectasis and/or scarring. Reading Location: [facility] Active Medications Active Medications Active Medications: Current Medications Generic Name Dose Route Start Last Admin Trade Name Freq PRN Reason Stop Dose Admin Acetaminophen 650 mg 06/16/25 01:31 Acetaminophen 325 Mg Tablet PO Q4H PRN PRN Fever, pain -04/15 Al Hydroxide/Mg Hydroxide 30 ml 06/16/25 01:31 06/16/25 05:51 Mag Hydrox/Al Hydrox/Simeth 30 Ml Udc PO 30 ml Q6H PRN PRN Administration Gastric Burning Albuterol Sulfate 2.5 mg 06/16/25 01:31 Albuterol 2.5 Mg/3 Ml Vial.Neb. INHALATION Q2H PRN PRN Dyspnea, wheezing Atorvastatin Calcium 80 mg 06/16/25 22:00 Atorvastatin Calcium 80 Mg Tablet PO QHS KAYLIN Dexamethasone Sodium Phosphate 4 mg 06/16/25 06:00 06/16/25 05:35 Dexamethasone 4 Mg/Ml Vial IV 4 mg Q6 KAYLIN Administration Guaifenesin 10 ml 06/16/25 01:31 Guaifenesin 10 Ml Udc (200mg/10ml) PO Q4H PRN PRN COUGH Hydralazine HCl 10 mg 06/16/25 01:31 Hydralazine 20 Mg/Ml Vial IV Q4H PRN PRN SBP > 160 Protocol Levetiracetam 500 mg/ Sodium 105 mls @ 420 mls/hr 06/16/25 10:00 Chloride IV Q12 KAYLIN Sodium Chloride 250 mls @ 15 mls/hr 06/16/25 01:32 IV .[id number] PRN Saline Flush Sodium Chloride 250 mls @ 15 mls/hr 06/16/25 01:32 IV .[id number] PRN Additional IVPB Infusion Melatonin 3 mg 06/16/25 01:31 Melatonin 3 Mg Tablet PO QHS PRN PRN INSOMNIA Nicotine Polacrilex 2 mg 06/16/25 01:31 Nicotine 2mg Gum (Pbkc) 2 Mg Gum PO Q2H PRN PRN Nicotine Craving Ondansetron HCl 4 mg 06/16/25 01:31 Ondansetron 4 Mg/2 Ml Vial IV Q8H PRN PRN NAUSEA/VOMITING Senna/Docusate Sodium 2 tablet 06/16/25 01:31 Senna/Docusate Sodium 1 Tablet PO BID PRN PRN Constipation Sodium Chloride 10 - 40 ml 06/16/25 01:32 0.9% Saline Lock 10 Ml Syringe IV UD PRN SALINE FLUSH
[2025-06-16] MEDS: 0.9% Normal Saline (250mL Bag) 250 ML 15 ML IV (11:28)
[2025-06-16] MEDS: levETIRAcetam IV 500 MG in 0.9% Normal Saline (100mL Bag) 100 ML 420 MG IV (11:31)
--- NOTE | 2025-06-16 12:38 | PCM.DC.SUM ---
Providers Date of Admission: 06/15/25 Primary Care Physician: Dr. Owen Hernandez MD Consultations 06/16/25 01:31 Consult: Hot Knife Foxing Cutter / Pulmonary Medicine Routine Consulting Provider: Intensivists/Pulmonary Med Reason for Consult: Lung mass w/ brain mets w/ vasogenic edema, awaiting [facility] main txf EMERGENT Consult: No MD Notified: Yes Date Notified: 06/16/25 Time Notified: 06:33 Method of Notification: Text Consult: Tele-Neurology Routine Consulting Provider: [facility] Reason for Consult: Lung mass w/ brain mets w/ vasogenic edema, awaiting [facility] Main txf bed. EMERGENT Consult: No MD Notified: Yes Date Notified: 06/16/25 Time Notified: 07:57 Method of Notification: Answering Service Nursing Unit Staff Notify [facility] of Tele-Neurology Consult: Yes Reason For Visit: LUNG MASS, BRAIN METS W/ VASOGENIC EDEMA Diagnosis Discharge Diagnosis (1) Ataxia: Status: Acute Code(s): R27.0 - Ataxia, unspecified (2) Lung cancer metastatic to brain: Status: Acute Code(s): C34.90 - Malignant neoplasm of unspecified part of unspecified bronchus or lung; C79.31 - Secondary malignant neoplasm of brain Plan Brain metastasis CT with multiple cerebellar and cerebral mets: One in the left posterior corpus callosum at the splenium, another at the right temporal horn, and a third in the left central cerebellum. Associated vasogenic edema is present primarily from the lesion in the cerebellum with effacement of the ambient cisterns, and prepontine cistern. Mass effect on the 4th ventricle. Mild obstructive CSF physiology versus volume loss related to age. Patient has been accepted by the [facility]. Currently awaiting on bed availability. In the interim, given the pending transfer, patient was admitted to the ICU and started on IV dexamethasone and levetiracetam. Concerning for lung cancer as primary as chest CT with right lung mass Patient with ataxia in the preceding months. I suspect the brain metastasis may be the primary cause of this. I reached out to [facility] and patient was accepted by the neurosurgeon. I was on the phone with the neurosurgeon and the bed coordinator. Though the neurosurgeon excepted, there were no readily available beds available. The neurosurgeon advised sending the patient to the emergency room. I clarified that that would not be an kind of violation. They told me that that would not be not be a violation as the service requested, neurosurgery, is not available at [facility]. I spoke with the emergency room physician, Dr. Salgado, he agreed to accept the patient and patient will be transferred to [facility] emergency room in stable condition. Chronic conditions: Chronic Kidney Disease Stage II per GFR trending but no comparison thus uncertain: Admission BUN/Cr 16/0.95, GFR 82, baseline renal function unknown but suspect likely this is baseline, repeat BMP in AM. CAD: Status post CABG x 2, not taking any any antiplatelet therapy even including aspirin, not on a beta-srikanth NIKOLAS inhibitor/ARB, reportedly taking statin therapy which we continued. Given current presentation will defer aspirin therapy, continue statin, given normalized blood pressure currently will avoid beta-srikanth/NIKOLAS inhibitor however if appropriate will add. Hyperlipidemia: Will continue patient home statin therapy. Tobacco Abuse: Encouraged cessation, inpatient consultation per RT, NR if desired. DVT prophylaxis: SCDs, defer any chemoprophylaxis concept given findings on CT imaging of the brain. Medications at Discharge Home Medications rosuvastatin 40 mg tablet 40 mg PO QDAY 04/05/25 Hospital Course Operations None Procedures None Summary of Care Provided Minutes Spent on Discharge: 75 Hospital Course: This is a 79-year-old male presents with sore month history of ataxia. Present to the emergency room where he was found to have multiple metastatic lesions in his brain with vasogenic edema, 1 caused compression on the fourth ventricle. Patient was started on dexamethasone as well as Keppra. Issue the patient was accepted to [facility] but no beds were readily available. No the hospital service was contacted and patient was open admitted to the hospital here. Nursing called the clinic again and were informed that there would not be any beds available today. I discussed with the patient if you would be open to possibly going somewhere else other than [facility] to which he said yes. Reached out to [facility] and did have the patient accepted but that would not have a bed available till least this evening and then I spoke with [facility] spoke with the neurosurgeon who agreed to accept the patient however the bed coordinator informed the neurosurgeon, to whom I was on the phone with at the same time, but there were no ICU level beds available. The neurosurgeon then suggested that patient go to the emergency room. Clarified with the bed coordinator that that would not be a violation and they inform me that that would not as there is a service provided by [facility], in this case neurosurgery, that is not available at this institution. So the patient will be transferred from the intensive care to the emergency room. Currently he is stable. His only neurologic findings that I can determine at this time is some ataxia on his left side as well as some left lower extremity weakness. Weight / BMI Weight Weight: 64.7 kg Body Mass Index (BMI) 25.2 ABG / Lab / Microbiology Data 06/16/25 05:45 06/16/25 05:45 Laboratory: Laboratory Results - last 24 hr 06/15/25 12:55: WBC 11.9 H, RBC 4.58 L, Hgb 13.6, Hct 41.7, MCV 91.0, MCH 29.7, MCHC 32.6, RDW Std Deviation 45.2 H, RDW Coeff of Brooklynn 13.4, Plt Count 355, MPV 8.9, Immature Gran % (Auto) 0.500, Neut % (Auto) 71.0 H, Lymph % (Auto) 12.2 L, [place] % (Auto) 15.2 H, Eos % (Auto) 0.8, Baso % (Auto) 0.3, Absolute Neuts (auto) 8.4 H, Absolute Lymphs (auto) 1.45, Nucleated RBC % 0, Differential Comment SCANNED, Platelet Estimate ADEQUATE, PT 12.9, INR 1.0, APTT 27.8, Sodium 137, Potassium 4.7, Chloride 101, Carbon Dioxide 24.5, Anion Gap 11, BUN 16, Creatinine 0.95, Estim Creat Clear Calc 57.78, Est GFR (MDRD) Non-Af 82, BUN/Creatinine Ratio 16.9, Glucose 100 H, Calcium 9.5 06/16/25 05:45: WBC 10.8, RBC 4.75, Hgb 14.0, Hct 42.4, MCV 89.3, MCH 29.5, MCHC 33.0, RDW Std Deviation 43.6, RDW Coeff of Brooklynn 13.2, Plt Count 350, MPV 8.4, Immature Gran % (Auto) 0.600, Neut % (Auto) 92.9 H, Lymph % (Auto) 5.7 L, [place] % (Auto) 0.6, Eos % (Auto) 0.1, Baso % (Auto) 0.1, Absolute Neuts (auto) 10.0 H, Absolute Lymphs (auto) 0.62 L, Nucleated RBC % 0, Sodium 137, Potassium 4.4, Chloride 103, Carbon Dioxide 22.2, Anion Gap 12, BUN 19, Creatinine 1.07, Estim Creat Clear Calc 45.79 L, Est GFR (MDRD) Non-Af 71, BUN/Creatinine Ratio 18.1, Glucose 161 H, Calcium 9.4, Total Bilirubin 0.22, AST 15, ALT 18, Alkaline Phosphatase 73, Total Protein 7.1, Albumin 4.0, Globulin 3.2, Albumin/Globulin Ratio 1.2 06/16/25 12:55: Phosphorus 2.8, Magnesium 2.3 H Radiography Diagnostic Testing: Radiology Impression Brain CT 06/15/25 13:26 IMPRESSION: 1. No evidence of acute ischemia or hemorrhage. 2. Multiple enhancing masses are shown worrisome for metastatic disease. One in the left posterior corpus callosum at the splenium, another at the right temporal horn, and a third in the left central cerebellum. Associated vasogenic edema is present primarily from the lesion in the cerebellum with effacement of the ambient cisterns, and prepontine cistern. Mass effect on the 4th ventricle. Mild obstructive CSF physiology versus volume loss related to age. 3. No large vessel occlusion. Despite very mild, partial effacement of the prepontine cistern, the basilar artery is widely patent. Stroke Alert: As above The critical findings in the findings and impression above were relayed directly by me by telephone to [place] on 06/15/2025 at 3:02 pm EST with readback verification. Reading Location: [id number] Head/Neck CTA 06/15/25 13:27 IMPRESSION: No significant vascular abnormality is seen. 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 Red Alert: Brain mets The critical findings in the findings and impression above were relayed directly by me by telephone to Mario Musa on 06/15/2025 at 2:54 pm with readback verification. Reading Location: [facility] 06/15/25 13:53 IMPRESSION: Coronary artery calcification (CAC) is is present 3.4 cm 2.7 cm irregular lobulated mass in the posterior aspect of the right upper lobe abutting the right minor fissure. A neoplastic process should be ruled out. Increased markings at the lung bases suggestive of either linear atelectasis and/or scarring. Reading Location: [facility]--1 Brain MRI 06/16/25 05:55 IMPRESSION: 1. No evidence of acute ischemia or hemorrhage. 2. Masses are present. One of the index lesions thought to be in the splenium of the corpus callosum is actually abutting the tentorium cerebelli with mass effect on the splenium and shows vasogenic edema into the parietal lobe. The lesion in the right temporal horn and left superior cerebellar hemisphere are again noted. Additionally, a new subcentimeter lesion is identified in the right thalamus. 3. Mass effect from the cerebellar lesion is present upon the ambient cisterns. Mild mass effect on the 4th ventricle. The mild dilation of the ventricles is favored to be/volume loss related rather than obstructive CSF physiology. Close follow-up suggested. Reading Location: [id number] D/C Instructions DC O2, CPAP, BIPAP Needs Home O2 Discharge instructions: No Meaningful Use Info Meaningful Use Meaningful Use Diagnoses (Choose all that apply): None applicable Discharge Plan Admission Admit Date/Time: 06/15/25 23:52 Primary Reason for Your Visit: brain metastasis Attending Provider: Brian Huggins Primary Care Provider: Owen Hernandez Consulting Providers: Edi Oquendo; Olvin Stewart; Cisco Ibanez; Gabino Guadalupe; Gabe Bell; Shahla Colby; Yaakov Kiser; Lorraine Wilson; Mike Santillan; Shameka Lowery; Cuba Beltran; Garcia Wesley; Sravani Baker; Mario Durham; Jose New; Ward Curtis; Florence Mckenzie; Chantel Flaherty; Trisha Verde; Elle Espinosa; Trip Chen; Evin Pablo; Brian Lemus; Alycia Sosa; José Miguel Pang; Meryl Singleton; Brian Longoria; Angel Franks; Rob Garcia; Vignesh Simms; Sharyn Khalil; Josh Fraire; David Mcdonough; Tashia Liang; Bob Perez; Rachelle Stein; Sina,Samih; Florencio Zamorano; Balta Byrne; Naeem Persaud; Heather Seymour; Demarco Castillo; Nazia Hamilton; Jim Ruiz; Jose Mari; Dayanna Ni; Yesenia Garcia; Raven Frye; Jaret Cruz; Sherie Lofton; Kleber Echevarria; Omari Early; Felix Villafana; Melida Quiroga; Ivis Darden; Giancarlo Marin; Caro Smith; Meryl Carreno; Tano Casillas; rEon Bradley; Chikis Lentz; Luther Bettencourt; Erika Garcia; Rosy Coppola Discharge Orders/Prescriptions Prescriptions: No Action rosuvastatin 40 mg tablet 40 mg PO QDAY Referrals / Follow Up: Owen Hernandez MD [Primary Care Provider, Family Practice] Disposition Disposition (needs filled in before D/C Order can be placed): Acute Care Hospital Charges/Coding Visit Charges Inpatient E&M: 39197 Disch Hosp >30min
--- NOTE | 2025-06-16 12:55 | CHAPLAIN ---
Type of Pastoral Visit _x__ Initial Visit ___ Follow-up Visit ___ On-call Visit ___ General Patient Visit ___ Spiritual Assessment ___ Family Conference ___ Bereavement ___ Rapid Response ___ Code Blue ___ Other (describe below) Pastoral Care Referral From ___ Patient ___ Family _x__ Nurse ___ Physician ___ Wet Chemistry Analyst ___ Clipper Counters ___ Other (describe below) Sacrament/Intervention _x__ Active listening ___ Anointing ___ Church ___ Bereavement ___ Communion ___ Glenny exploration ___ ___ Life review ___ Prayer ___ Reconciliation ___ Sacrament of Sick _x__ Supportive presence ___ Wedding ___ Other (describe below) Pastoral Comments
--- NOTE | 2025-06-16 15:16 | NURSING ---
Report given to ER nurse, patient transferred by physicians ambulance. All questions and concerns answered. Patients brother at bedside.
== END 2025-06-16 15:20 | disposition short-term general hospital (02) | DRG 54 ==
LOC: ED 15:47 → ICU 06-16 01:19
PROVIDERS: Admitting Provider Family Medicine; Emergency Provider Emergency Medicine; PCP Family Medicine
DX: C79.31 Secondary malignant neoplasm of brain (principal); G93.6 Cerebral edema; C34.91 Malignant neoplasm of unspecified part of right bronchus or lung; Z66 Do not resuscitate; I12.9 Hypertensive chronic kidney disease with stage 1 through stage 4 chronic kidney disease, or unspecified chronic kidney disease; E78.5 Hyperlipidemia, unspecified; I25.10 Atherosclerotic heart disease of native coronary artery without angina pectoris; N18.2 Chronic kidney disease, stage 2 (mild); F17.210 Nicotine dependence, cigarettes, uncomplicated; R53.81 Other malaise; Z79.899 Other long term (current) drug therapy; R27.0 Ataxia, unspecified; Z95.1 Presence of aortocoronary bypass graft
CPT/HCPCS: 70450; 70496; 70498; 70553; 71260; 80048; 80053; 83735; 84100; 85025; 85610; 85730; 93005; 94668; 94762; 97110; 99285; 99406; A9575; Q9967; A4216